=== PATIENT | male | born 1965 | race African-American/Black ===

== ENCOUNTER 2020-08-01 15:41 | Emergency (ER) | payer SELFPAY ==
[2020-08-01] VITALS (7 sets, daily range): BP systolic 140–167; BP diastolic 75–81; PULSE 86–104; RESP 14–30; TEMP 36.7; O2SAT 94–98
--- NOTE | ~2020-08-01 | CT_ITS ---
EXAMINATION: CT abdomen pelvis w con DATE: 08/01/2020 17:35 INDICATION: No bowel movements for one week. Urinary pain. TECHNIQUE: Computed tomography (CT) of the abdomen and pelvis was performed with 100 cc Omnipaque 350 intravenous contrast. The dose-length product was 1422.79 mGy-cm. Automated exposure control and ite rative reconstruction technique were employed. COMPARISON: None. FINDINGS: There are mixed patchy groundglass opacities and nodular densities of the lower lungs. Hear t size normal. No significant pleural or pericardial effusion. Small hiatal hernia. There is mucosal thickening of a long segment of proximal small bowel. No definite obstruction. Colon ic diverticulosis without diverticulitis. The liver, spleen, pancreas, adrenal glands and kidneys are unremarkable. Gallbladder is present. The re is a fat-containing umbilical hernia. Prostate gland is mildly enlarged and hypodense. Cannot excl ude prostatitis. No significant vascular abnormality. No lymphadenopathy. There is a sclerotic lesion of the left femoral head, most likely benign bone island. No acute osseous abnormality. IMPRESSION: 1. Mixed patchy groundglass and nodular densities of the lower lungs, most likely infectious/inflamma tory, although metastatic disease not excluded. 2: Segmental thickening of the proximal small bowel, suspicious for enteritis. No definite obstructio n. 3: Mildly enlarged heterogeneous hypodense prostate gland. Consider prostatitis in the appropriate c linical setting. Reviewed, dictated and finalized at location A. ICAL GARMENT INSPECTOR IMPRESSION: 1. Mixed patchy groundglass and nodular densities of the lower lungs, most like ly infectious/inflammatory, although metastatic disease not excluded. 2: Segmental thickening of the proximal small bowel, suspicious for enteritis. No definite obstruction. 3: Mildly enlarged heterogeneous hypodense prostate gland. Consider prostatiti s in the appropriate clinical setting.
[2020-08-01 16:20] LABS: Basophils Percent Auto 0.2 % (0.2-1.2); Eosinophils Percent Auto 0.3 % (0-4.4); Hematocrit 27.5 % (42.0-52.0); Hemoglobin 8.2 g/dL (14.0-18.0); Immature Granulocyte Absolute 0.25 K/mm3 (0.00-0.031); Immature Granulocyte Percent A 1.9 % (0-0.5); Lymphocytes Absolute Auto 1.64 K/mm3 (0.9-3.2); Lymphocytes Percent Auto 12.5 % (18.3-44.2); Mean Corpuscular HGB Conc 29.8 g/dl (32-36); Mean Corpuscular Hemoglobin 26.2 pg (26-34); Mean Corpuscular Volume 87.9 fl (80-100); Mean Platelet Volume 9.8 fl (7.4-10.4); Monocytes Absolute Auto 1.2 K/mm3 (0.1-0.6); Monocytes Percent Auto 9.1 % (2.6-8.5); Nucleated Red Blood Cells Absolute Auto 0.1 K/mm3 (0.0-0.012); Nucleated Red Blood Cells Perc 0.8 % (0.0-0.2); Platelet Count Result 494 k/mm3 (150-375); Red Blood Count 3.13 M/mm3 (4.6-6.20); Red Cell Distribution Width 14.6 % (11.5-14.5); White Blood Count 13.1 K/mm3 (4.5-10.0)
[2020-08-01 16:26] LABS: Hypochromasia 2+ (NORMAL); Platelet Estimate Increased (Adequate)
[2020-08-01 16:27] LABS: Stomatocytes 1+ (NORMAL)
[2020-08-01 16:36] LABS: Alanine Aminotransferase 16 U/L (4-50); Albumin Level 3.1 g/dL (3.5-5.1); Alkaline Phosphatase 160 U/L (38-126); Anion Gap 5 mmol/L (8-16); Aspartate Amino Transferase 28 U/L (17-59); Bilirubin,Total 1.2 mg/dL (0.2-1.3); Blood Urea Nitrogen 14 mg/dL (9-20); Calcium 8.1 mg/dL (8.4-10.2); Carbon Dioxide 38 mmol/L (22-30); Chloride 88 mmol/L (98-107); Estimated CRCL calculation 117 ml/min; Estimated Glomerular Filt Rate > 60; Glucose 552 mg/dL (75-110); Lipase 335 U/L (23-300); Potassium 3.2 mmol/L (3.4-5.0); Sodium 131 mmol/L (137-145)
[2020-08-01 16:37] LABS: Add Urine Microscopic? YES; Appearance Urine Clear (Clear); Bilirubin Urine Negative (Negative); Blood Urine Negative (Negative); Color Urine Amber (Yellow); Glucose Urine UA 3+ mg/dL (Negative); Ketones Urine Negative (Negative); Leukocyte Esterase Ur Negative LEU/UL (Negative); Nitrate Urine Positive (Negative); Protein Urine Negative (Negative); RBC Urine 0-2 /hpf (0-2); Specific Grav Ur 1.026 (1.001-1.035); Squamous Epithelial Cell Urine Rare /hpf (Few); WBC Urine 0-3 /hpf
[2020-08-01] MEDS: INSULIN ASPART (*BKC) 100 UNITS/ML 18 UNITS SUB-Q (17:01)
[2020-08-01 17:09] LABS: Beta-Hydroxybutyrate/Acetoacetate 0.36 mmol/L (0.02-0.27)
[2020-08-01 18:21] LABS: Glucose Point of Care 442 (65-105)
[2020-08-01] MEDS: INSULIN HUMAN REGULAR (*BKC) 100 UNITS/ML 8 UNITS IV PUSH (18:37)
--- NOTE | 2020-08-01 19:34 | ED.GENADULT ---
HPI - General Adult General Chief complaint: Urogenital-Male Stated complaint: Pain with Urination and BM's,Covid +07/14/20 Time Seen by Provider: 08/01/20 15:59 Source: patient Mode of arrival: ambulatory Limitations: no limitations History of Present Illness HPI narrative: Patient with history of diabetes type 2 and hypertension presents with chief complaint of no bowel movement for 1 week as well as pain with urination for 3 weeks. Patient states he was discharged from [facility] due to DKA last Friday but the dysuria was not evaluated or treated. Patient states that he told his primary care provider and was started on Cipro on Friday but he has not noticed resolution of his symptoms. Patient denies fever, chills, nausea, vomiting, diarrhea. Patient states that he ate prior to coming and did not take his Humalog. Patient also takes Lantus and lisinopril. Patient denies chest pain or shortness of breath. Patient was diagnosed with Covid 07-14-2020. Related Data Home Medications Medication Instructions Recorded Confirmed ciprofloxacin HCl 08/01/20 hydrochlorothiazide 08/01/20 insulin glargine [Lantus Solostar SUBCUT 08/01/20 U-100 Insulin] losartan-hydrochlorothiazide tablet 08/01/20 metoprolol succinate PO 08/01/20 Allergies Allergy/AdvReac Type Severity Reaction Status Date / Time No Known Allergies Allergy Verified 08/01/20 15:54 Review of Systems Review of Systems: Narrative: CONSTITUTIONAL: Denies fever, chills, or sweats. EYES: Denies visual changes, redness, or discharge. ENT: Denies rhinorrhea, congestion, sore throat, or otalgia. CARDIOVASCULAR: Denies chest pain, palpitations, or edema. RESPIRATORY: Denies cough or dyspnea. GASTROINTESTINAL: Reports constipation denies abdominal pain, nausea, vomiting, or diarrhea. GENITOURINARY: Reports dysuria and hematuria. SKIN: Denies rash or itching. MUSCULOSKELETAL: Denies back pain, joint pain, or myalgia. NEUROLOGIC: Denies headache, numbness, dizziness, or weakness. PSYCHIATRIC: Denies anxiety or depression. Exam Narrative: Exam Narrative: GENERAL: Well-appearing, well-nourished, and in no acute distress. HEAD: Normocephalic, atraumatic. EYES: PERRLA and EOMI. NECK: ROM intact CHEST: Clear to auscultation. No respiratory distress. No wheezes rales or rhonchi HEART: Regular rate and rhythm. No murmur heard. Normal peripheral pulses. ABDOMEN: Soft, nontender, nondistended, normal active bowel sounds. BRAZE OPERATOR: No penile trauma, bleeding, discharge or sores noted. EXTREMITIES: Normal range of motion. No edema. SKIN: Warm, dry, no rash. NEURO: No focal deficits. Alert and oriented x3. PSYCH: Normal mood and affect. Course Vital Signs Vital signs: Vital Signs Temperature 98.0 F 08/01/20 15:51 Pulse Rate 104 H 08/01/20 15:51 Respiratory Rate 20 08/01/20 15:51 Blood Pressure 166/80 H 08/01/20 15:51 Pulse Oximetry 94 08/01/20 15:51 Temperature 98.0 F 08/01/20 15:51 Pulse Rate 100 08/01/20 18:47 Respiratory Rate 16 08/01/20 18:47 Blood Pressure 150/81 H 08/01/20 19:17 Pulse Oximetry 95 08/01/20 19:17 Medical Decision Making MDM Narrative Medical decision making narrative: Discussed patient presentation, labs, imaging, with Dr Mullins. He agrees patient does not show signs of needing admission. Patient has already been started on cipro by PCP. Calling PCP to inform of labs, omaging and the need to keep patient on cipro 28 days for prostatits probability and referral to urology. Waiting on Hailee to call back. Patient blood sugar is now 303. giving PO potassium x1. Consult with Dr Stephen and patient will be discharged home after he receives liter of fluid and BS is under 250. He wants patient to be given new script of cipro for 28 days. He states he will maintain close follow up with patient to make sure he is improving and his blood sugars are staying under better control as well as urology and gi referral for
[2020-08-01 19:39] LABS: Glucose Point of Care 304 (65-105)
[2020-08-01] MEDS: POTASSIUM CHLORIDE 20 MEQ TABLET 40 MEQ PO (19:54)
[2020-08-01] MEDS: SODIUM CHLORIDE 0.9% IV 1,000 ML 999 ML IV CONT (20:58)
[2020-08-02 06:17] LABS: Glucose Point of Care 229 (65-105)
== END 2020-08-01 22:25 | disposition home or self-care (01) ==
PROVIDERS: Emergency Medicine; Physician Assistant; Emergency Provider Emergency Medicine; PCP Family Medicine
DX: E11.65 Type 2 diabetes mellitus with hyperglycemia (principal); Z86.19 Personal history of other infectious and parasitic diseases; Z79.4 Long term (current) use of insulin; N40.0 Benign prostatic hyperplasia without lower urinary tract symptoms; R91.8 Other nonspecific abnormal finding of lung field; R93.3 Abnormal findings on diagnostic imaging of other parts of digestive tract
CPT/HCPCS: 36415; 74177; 80053; 81001; 82010; 82948; 83690; 85025; 96361; 96374; 99284; A9270; J1815; J7030; Q9967

== ENCOUNTER 2020-08-08 14:27 | Inpatient (IN) | payer SELFPAY ==
[2020-08-08] VITALS (19 sets, daily range): BP systolic 115–185; BP diastolic 69–89; PULSE 88–120; RESP 14–32; TEMP 37.1–39.1; O2SAT 89–100; BMI 34.9
--- NOTE | ~2020-08-08 | XR_ITS ---
EXAMINATION: XR chest 1V portable INDICATION: Shortness of breath and weakness, COVID 19 positive TECHNIQUE: Portable AP chest at 1554 hours COMPARISON: 01/03/2009 FINDINGS: There are diffuse opacities throughout all lung zones. No definite pleural effusion or pneu mothorax is identified. Cardiomegaly is noted. IMPRESSION: 1. Diffuse lung disease, consistent with pneumonia and/or pulmonary edema and/or acute respiratory di stress syndrome (ARDS). Reviewed, dictated and finalized at location A. CE OFFICER IMPRESSION: 1. Diffuse lung disease, consistent with pneumonia and/or pulmonary edema and/o r acute respiratory distress syndrome (ARDS).
--- NOTE | ~2020-08-08 | CT_ITS ---
EXAMINATION: CTA chest PE protocol DATE: 08/08/2020 16:51 INDICATION: Low oxygen saturation TECHNIQUE: Computed tomography angiography (CTA) of the chest was performed with 100 mL Omnipaque-350 intravenous contrast timed to evaluate the pulmonary arteries. Coronal maximum intensity projection 3D-reconstructions were created by the technologist. Automated exposure control and iterative reconst ruction technique were employed. Exam dose: 3060.36 mGy-cm total exam DLP. COMPARISON: 08/08/2020 chest. FINDINGS: There is moderate enhancement of the pulmonary arteries and no evidence of pulmonary emboli sm; due to motion the peripheral pulmonary arteries are not optimally evaluated however. No thoracic aortic aneurysm or dissection. Cardiomegaly. Coronary artery calcification. No pericardial effusion. Small right pleural effusion. Normal size and homogeneous enhancement of the thyroid gland. No hilar or mediastinal mass lesion or lymphadenopathy. No evidence of adrenal mass lesion. There are scattered bilateral patchy pulmonary infiltrates consistent with bilateral pneumonia. No suspicious osteolytic or osteoblastic lesions. Degenerative spurring of the thoracic spine. IMPRESSION: Bilateral pneumonia, small right pleural effusion Reviewed, dictated and finalized at Location A. Reviewed, dictated and finalized at location A. RVISOR HARD CANDY
--- NOTE | ~2020-08-08 | CT_ITS ---
EXAMINATION: CT brain wo con DATE: 08/08/2020 15:59 INDICATION: Headache TECHNIQUE: Computed tomography (CT) of the head was performed without intravenous contrast. The mA wa s adjusted according to patient size. Iterative reconstruction technique was employed. Exam dose: 60 5.33 mGy-cm total exam DLP. COMPARISON: None FINDINGS: No intracranial mass lesion or hemorrhage, midline shift or mass effect. No intracranial ma ss lesion is detected. Normal ventricular size. No subdural or epidural hematoma. Bilateral carotid siphon internal carotid artery calcifications are noted. The included paranasal sinuses and mastoid air cells are normally developed and aerated. No fracture or bone destruction of the cranial vault. IMPRESSION: Cerebral atherosclerosis No acute intracranial finding Reviewed, dictated and finalized at Location [facility]. Reviewed, dictated and finalized at location A. OFF WORKER
--- NOTE | 2020-08-08 14:36 | ECG_ITS ---
Measurements Intervals [place] Rate: 120 P: 41 MD: 163 QRS: 17 QRSD: 90 T: 0 QT: 339 QTc: 480 Interpretive Statements SINUS TACHYCARDIA NONSPECIFIC ST & T-WAVE ABNORMALITY- DIFFUSE LEADS BASELINE ARTIFACT- I, II, III, AVR, AVL, AVF ABNORMAL ECG Electronically Signed On 08-08-2020 15:52:26 INDUSTRIAL SALES ENGINEER by Fawad Gill D.O.
--- NOTE | 2020-08-08 15:00 | ED.GENADULT ---
HPI - General Adult General Chief complaint: Headache Stated complaint: PAINS IN MY HEAD AND BACK Time Seen by Provider: 08/08/20 14:42 Source: patient and EMS Mode of arrival: EMS Limitations: no limitations History of Present Illness HPI narrative: 55 years old -[place] male referred to our emergency room from his family physician office because of headache and hypoxia. Patient complaining of intermittent headache all over the head, aching, for the last 48 hours. Patient did not take any pain medication for the headache for the last 2 days. Because he does not know what he is supposed to take. Patient denies any fever, chills, nausea, vomiting, vision change, ear ache, sore throat, trouble breathing, coughing, sneezing. Patient reported having similar headaches years ago. Patient reports having Covid infection, tested positive for Covid July 16. Been at home since, did not go back to work. Patient reports been using intermittent oxygen at home since of the diagnosis of Covid. Related Data Home Medications Medication Instructions Recorded Confirmed ciprofloxacin HCl 08/01/20 hydrochlorothiazide 08/01/20 insulin glargine [Lantus Solostar SUBCUT 08/01/20 U-100 Insulin] losartan-hydrochlorothiazide tablet 08/01/20 metoprolol succinate PO 08/01/20 Allergies Allergy/AdvReac Type Severity Reaction Status Date / Time No Known Allergies Allergy Verified 08/01/20 15:54 Review of Systems Review of Systems: Narrative: CONSTITUTIONAL: Denies fever, chills, or sweats. EYES: Denies visual changes, redness, or discharge. ENT: Denies rhinorrhea, congestion, sore throat, or otalgia. CARDIOVASCULAR: Denies chest pain, palpitations, or edema. RESPIRATORY: Denies cough or dyspnea. GASTROINTESTINAL: Denies abdominal pain, nausea, vomiting, or diarrhea. GENITOURINARY: Denies dysuria or hematuria. SKIN: Denies rash or itching. MUSCULOSKELETAL: Denies back pain, joint pain, or myalgia. NEUROLOGIC: Denies headache, numbness, or weakness. PSYCHIATRIC: Denies anxiety or depression. [facility] Past Medical History Medical History (Updated 08/08/20 @ 17:13 by Devika Grant MD) COVID-19 virus infection Diabetes mellitus, new onset Social History Social History Gender identity (if verbalized by the patient): Male Exam Narrative: Exam Narrative: General appearance: Well-developed, well-nourished, looks in pain Skin: Normal color Head: Normocephalic, nontraumatic Eyes: Clear conjunctiva ENT: Oropharynx normal, ears normal, nose normal Neck: Supple, nontender Chest and respiratory: Airway patent, no respiratory distress, no accessory muscle use Heart: Regular rate/rhythm Abdomen: Soft, nontender, no organomegaly, quiet bowel sounds Vascular: Normal peripheral pulses, normal capillary refill. Musculoskeletal: Normal range of motion, nontender back Neurologic: Alert and oriented ?3, [employer] [employer] is normal as tested, no gross motor deficit Course Consultations Consultation #1: Dr. Red High flow oxygen Start dexamethasone Date: 08/08/20 Time: 17:10 Vital Signs Vital signs: Vital Signs Temperature 37.2 C 08/08/20 14:30 Pulse Rate 120 H 08/08/20 14:30 Respiratory Rate 21 H 08/08/20 14:30 Blood Pressure 151/69 H 08/08/20 14:30 Pulse Oximetry 89 L 08/08/20 14:30 Temperature 37.2 C 08/08/20 14:30 Pulse Rate 120 H 08/08/20 14:30 Respiratory Rate 21 H 08/08/20 14:30 Blood Pressure 151/69 H 08/08/20 14:30 Pulse Oximetry 89 L 08/08/20 14:30 Medical Decision Making Vital Signs Vital Signs: Vital Signs Temperature 37.2 C 08/08/20 14:30 Pulse Rate 120
[2020-08-08] MEDS: MORPHINE SULFATE (*CRX) 4 MG/ML INJ IV PUSH (15:10)
[2020-08-08] MEDS: ONDANSETRON INJ 4 MG/2 ML VIAL IV PUSH (15:10)
[2020-08-08] MEDS: SODIUM CHLORIDE 0.9% IV 1,000 ML 999 ML IV CONT (15:10)
[2020-08-08 15:17] LABS: Base Excess ABG 1.5 mEq/l (+/-2.0); Fractional Inspired Oxygen 21 %; HCO3 ABG 25.1 mEq/l (22.0-26.0); Oxygen Content ABG 8.9 %vol (16.0-22.0); Oxyhemoglobin 78.2 % THb (90.0-100.0); PO2 FiO2 Ratio Arterial Blood 2.09 %; Total Hemoglobin 8.1 g/dL (12.0-18.0); pH ABG 7.473 (7.350-7.450)
[2020-08-08 15:19] LABS: Device ROOM AIR; Oxygen Saturation ABG 83.2 % (95.0-100.0); PO2 ABG 43.8 mmHg (80.0-100.0); Site Drawn LEFT BRACHIAL
[2020-08-08 15:25] LABS: Basophils Percent Auto 0.2 % (0.2-1.2); Eosinophils Percent Auto 0.2 % (0-4.4); Hematocrit 26.3 % (42.0-52.0); Hemoglobin 7.6 g/dL (14.0-18.0); Immature Granulocyte Absolute 0.09 K/mm3 (0.00-0.031); Immature Granulocyte Percent A 0.7 % (0-0.5); Lymphocytes Absolute Auto 0.57 K/mm3 (0.9-3.2); Lymphocytes Percent Auto 4.6 % (18.3-44.2); Mean Corpuscular HGB Conc 28.9 g/dl (32-36); Mean Corpuscular Hemoglobin 26.8 pg (26-34); Mean Corpuscular Volume 92.6 fl (80-100); Mean Platelet Volume 9.4 fl (7.4-10.4); Monocytes Absolute Auto 0.7 K/mm3 (0.1-0.6); Monocytes Percent Auto 5.2 % (2.6-8.5); Neutrophils Absolute Auto 11.1 K/mm3 (1.3-6.7); Neutrophils Percent Auto 89.1 % (45.5-73.1); Nucleated Red Blood Cells Absolute Auto 0.1 K/mm3 (0.0-0.012); Nucleated Red Blood Cells Perc 0.4 % (0.0-0.2); Platelet Count Result 354 k/mm3 (150-375); Red Blood Count 2.84 M/mm3 (4.6-6.20); Red Cell Distribution Width 18.7 % (11.5-14.5); White Blood Count 12.4 K/mm3 (4.5-10.0)
[2020-08-08 15:34] LABS: INR 1.1; Prothrombin Time 14.3 Seconds (11.1-14.7)
[2020-08-08 15:35] LABS: Partial Thromboplastin Time 38.2 SECONDS (22.3-36.8)
[2020-08-08 15:36] LABS: Magnesium 1.7 mg/dL (1.6-2.3)
[2020-08-08 15:37] LABS: Alanine Aminotransferase 46 U/L (4-50); Albumin Level 3.4 g/dL (3.5-5.1); Alkaline Phosphatase 295 U/L (38-126); Anion Gap 11 mmol/L (8-16); Aspartate Amino Transferase 47 U/L (17-59); Bilirubin,Total 0.9 mg/dL (0.2-1.3); Blood Urea Nitrogen 10 mg/dL (9-20); Calcium 8.5 mg/dL (8.4-10.2); Carbon Dioxide 29 mmol/L (22-30); Chloride 96 mmol/L (98-107); Estimated CRCL calculation 95 ml/min; Estimated Glomerular Filt Rate > 60; Glucose 393 mg/dL (75-110); Potassium 3.4 mmol/L (3.4-5.0); Sodium 136 mmol/L (137-145)
[2020-08-08 15:38] LABS: D Dimer 2.33 ug/mL (<0.48)
[2020-08-08 15:39] LABS: Hypochromasia 1+ (NORMAL); Platelet Estimate Adequate (Adequate)
[2020-08-08 15:40] LABS: Stomatocytes 1+ (NORMAL); Target Cells 1+ (NORMAL)
[2020-08-08 15:49] LABS: NT Pro B Type Natriuretic Pept 973 PG/ML (5-100); Troponin I 0.023 ng/mL (0.000-0.034)
[2020-08-08 15:58] LABS: CRP 21.8 mg/dL (<1.0); Erythrocyte Sedimentation Rate > 140 mm/hr (0-20)
--- NOTE | 2020-08-08 16:25 | PC.NURSE ---
patient has order for IV antibiotics. at bedside. patient taken to CT for PE study. will start all meds when patient returns.
[2020-08-08] MEDS: SODIUM CHLORIDE 0.9% IV 1,000 ML 30 ML (16:44)
--- NOTE | 2020-08-08 16:45 | PC.NURSE ---
patient back from CT. started on high flow NC O2. on alarm security or surveillance monitor. resting on stretcher. IV antibiotic started. has 2nd IV antibiotic after rocephin. patient aware of all. aware of plan for admission. states he feels comfortable. denies needs. may want some ice water in a bit.
[2020-08-08] MEDS: DEXAMETHASONE SOD PHOS INJ 4 MG/ML VIAL 6 MG IV PUSH (17:38)
--- NOTE | 2020-08-08 17:45 | PC.NURSE ---
report given to RN in ICU. patient will be transferred to ICU 10 by Aleshia RN and surface water technician. patient placed on mobile quality assurance monitor chassis and 4L NC. respiratory notified to take high flow O2 to ICU. patient denies needs prior to transfer.
[2020-08-08 18:20] LABS: Glucose Point of Care 385 (65-105)
--- NOTE | 2020-08-08 18:35 | PC.NURSE ---
175- This patient, Jaden Fortune, was admitted to Intensive Care Unit-10. Patient/family oriented to hospital policies and general routines including ID bracelet, bed and alarms, visiting hours, pain management, procedures, bathroom and other care routines, personal items, smoking policy, room service/diet, and visiting hours. Information on how to activate the Rapid Response Team has been discussed. Patient/Family are encouraged to report perceived risks to care and to ask questions if they do not understand what they are told or what they should do.
[2020-08-08 18:44] LABS: Alveolar/Arterial O2 Gradient 173.8 mmHg; Base Excess ABG 3.1 mEq/l (+/-2.0); Carboxyhemoglobin 0.2 % THb (0-2.0); Fractional Inspired Oxygen 40 %; HCO3 ABG 27.1 mEq/l (22.0-26.0); Methemoglobin ABG 0.4 %THb (0-1.5); Oxygen Content ABG 9.6 %vol (16.0-22.0); Oxygen Saturation ABG 94.2 % (95.0-100.0); Oxyhemoglobin 91.2 % THb (90.0-100.0); PO2 ABG 66.6 mmHg (80.0-100.0); PO2 FiO2 Ratio Arterial Blood 1.66 %; Reduced Hemoglobin 8.2 %THb (0-5.0)
[2020-08-08 18:45] LABS: Modified Allen's Test Pass; Site Drawn RIGHT RADIAL; Total Hemoglobin 7.4 g/dL (12.0-18.0)
[2020-08-08 18:46] LABS: Device HIGH FLOW THERAPY
--- NOTE | 2020-08-08 20:35 | PM.IMHP ---
H&P: HPI History of Present Illness Date/Time: 08/08/20 20:35 Chief Complaint: Dyspnea, generalized weakness Narrative: Jaden Fortune is a 55 year old male with past medical history of insulin-dependent type 2 diabetes, hypertension, history of anxiety/depression, obesity presents to the ED with complaints of dyspnea. Patient was diagnosed with COVID-19 on 07/16/2020 and has been managing at home. At 1st he was asymptomatic but a week later he started developing body aches and weakness and now dyspnea. He states he is so tired he slept for almost entire day. He went to his PCP today who advised him to come to the ED for further evaluation. Patient has type 2 diabetes taking 50 units of Lantus q.h.s. and metformin. His on multiple agents for blood pressure. He has a history of anxiety/depression and was on escitalopram in the past but he no longer takes. He otherwise is active works for [employer]. He lives with his and his 4 children, 2 sons and 2 daughters. 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 Patient states his family has been asymptomatic and is not sure where he got COVID-19. In the ED: On room air PO2 60s new started on high-flow oxygen and dexamethasone. He has put on airvo and admitted to the ICU for further management. EKG shows sinus tachycardia at rate 120. Review of Systems Review of Systems: Narrative: Constitutional: No Fever, No Chills, No Night Sweats, endorses fatigue and body aches. ENT/Mouth: No Hearing Changes, No Ear Pain, No Nasal Congestion, No Sinus Pain, No Hoarseness, No sore throat, No Rhinorrhea, No Swallowing Difficulty Eyes: No Eye Pain, No Redness, No Vision Changes Cardiovascular: No Chest Pain, No Palpitations, No Orthopnea, No Claudication, No Edema Respiratory: No Cough, No Sputum, No Wheezing, endorses dyspnea. Gastrointestinal: No Nausea, No Vomiting, No Diarrhea, No Constipation, No Abdominal Pain, No Heartburn, No Hematochezia, No Melena Genitourinary: No Dysuria, No Urinary Frequency, No Hematuria, No Urinary Incontinence, No Urgency Musculoskeletal: No Arthralgias, No Myalgias, No Joint Swelling, No Joint Stiffness, No Back Pain Skin: No Skin Lesions, No Pruritis, No Hair Changes Neuro: No Weakness, No Numbness, No Paresthesias, No Loss of Consciousness, No Syncope, No Dizziness, No Headache Psych: No Anxiety/Panic, No Depression, No Insomnia Heme: No Bruising, No Bleeding Lymph: No Adenopathy Endocrine: No Polyuria, No Polydipsia, No Temperature Intolerance [facility] Past Medical History Medical History (Updated 08/08/20 @ 22:32 by Jeff Glasgow DO) COVID-19 virus infection Diabetes mellitus, new onset Essential hypertension History of depression Family History Family History (Updated 08/08/20 @ 22:10 by Jeff Glasgow DO) Mother Heart disease Social History Social History (Updated 08/08/20 @ 22:11 by Jeff Glasgow DO) Social History: Active, independent. Smoking status: Never smoker Second hand tobacco smoke exposure: No Alcohol intake: never Substance use: never Living arrangements: with family Additional living arrangements comments: , 2 sons and 2 daughters Occupation/Education: occupation Additional occupation/education comments: Works for [employer] Gender identity (if verbalized by the patient): Male Sexual Orientation (if Verbalized by the Patient): Straight or Heterosexual Spiritual care concerns: No Meds Home Medications and Allergies Home Medications Medication Instructions Recorded Confirmed Type insulin glargine [Lantus Solostar SUBCUT 08/01/20 History U-100 Insulin] losartan-hydrochlorothiazide 1 tablet PO DAILY 08/01/20 08/08/20 History metoprolol succinate 200 mg PO DAILY 08/01/20 08/08/20 History amlodipine 5 mg PO DAILY 08/08/20 08/08/20 History benzonatate 100 mg PO DAILY 08/08/20 08/08/20 History escitalopram oxalate 10 mg PO DAILY 08/08/20 08/08/20 History metformin 1,000 mg PO DAILY 08/08/20
[2020-08-08 21:49] LABS: Add Urine Microscopic? YES; Appearance Urine Clear (Clear); Bacteria Urine Trace /hpf; Bilirubin Urine Negative (Negative); Blood Urine 1+ (Negative); Color Urine Yellow (Yellow); Glucose Urine UA 3+ mg/dL (Negative); Ketones Urine Trace mg/dL (Negative); Leukocyte Esterase Ur Negative LEU/UL (Negative); Nitrate Urine Negative (Negative); Protein Urine 2+ mg/dL (Negative); RBC Urine 0-2 /hpf (0-2); Squamous Epithelial Cell Urine Rare /hpf (Few); Urobilinogen Urine Negative mg/dL (<2.0); WBC Urine 0-3 /hpf
[2020-08-08 21:52] LABS: Specific Grav Ur 1.051 (1.001-1.035)
[2020-08-08] MEDS: INSULIN GLARGINE (*BKC) 100 UNITS/ML 50 UNITS SUB-Q (23:53)
[2020-08-09] VITALS (13 sets, daily range): BP systolic 114–149; BP diastolic 55–92; PULSE 76–91; RESP 16–18; TEMP 35.9–37.2; O2SAT 93–100
[2020-08-09] MEDS: INSULIN ASPART (*BKC) 100 UNITS/ML 10 UNITS SUB-Q (00:22)
[2020-08-09 01:00] LABS: Iron 41 ug/dL (49-181)
[2020-08-09] MEDS: ENOXAPARIN 40 MG/0.4 ML SYRINGE SUB-Q ×3 (01:06→20:22)
[2020-08-09 01:10] LABS: Glucose Point of Care 471 (65-105)
[2020-08-09 01:12] LABS: Hemoglobin A1C 7.1 % (<5.7)
[2020-08-09 01:23] LABS: Percent Iron Saturation 17 % (20-50)
[2020-08-09 03:52] LABS: Glucose Point of Care 498 (65-105)
[2020-08-09 05:18] LABS: Basophils Percent Auto 0.1 % (0.2-1.2); Hematocrit 24.8 % (42.0-52.0); Hemoglobin 7.2 g/dL (14.0-18.0); Immature Granulocyte Absolute 0.13 K/mm3 (0.00-0.031); Immature Granulocyte Percent A 0.8 % (0-0.5); Immature Reticulocyte Fraction 25.2 % (3.0-15.9); Lymphocytes Absolute Auto 0.73 K/mm3 (0.9-3.2); Lymphocytes Percent Auto 4.7 % (18.3-44.2); Mean Corpuscular Hemoglobin 27.4 pg (26-34); Mean Corpuscular Volume 94.3 fl (80-100); Mean Platelet Volume 9.9 fl (7.4-10.4); Monocytes Absolute Auto 0.7 K/mm3 (0.1-0.6); Monocytes Percent Auto 4.7 % (2.6-8.5); Neutrophils Absolute Auto 14.1 K/mm3 (1.3-6.7); Neutrophils Percent Auto 89.7 % (45.5-73.1); Nucleated Red Blood Cells Perc 0.1 % (0.0-0.2); Platelet Count Result 360 k/mm3 (150-375); Red Blood Count 2.63 M/mm3 (4.6-6.20); Red Cell Distribution Width 18.7 % (11.5-14.5); Reticulocyte Hemoglobin Conten 24.9 pg (28.2-35.7); Reticulocyte Percent 8.24 % (0.7-4.3); Reticulocytes Absolute 0.22 B/L (32.2-175.7); White Blood Count 15.7 K/mm3 (4.5-10.0)
[2020-08-09 05:29] LABS: Transferrin 155 mg/dL (206-381)
[2020-08-09 05:43] LABS: Anion Gap 4 mmol/L (8-16); Blood Urea Nitrogen 15 mg/dL (9-20); Calcium 8.3 mg/dL (8.4-10.2); Carbon Dioxide 34 mmol/L (22-30); Chloride 97 mmol/L (98-107); Estimated CRCL calculation 105 ml/min; Estimated Glomerular Filt Rate > 60; Glucose 401 mg/dL (75-110); Lactate Dehydrogenase 614 U/L (313-618); Potassium 4.3 mmol/L (3.4-5.0); Sodium 135 mmol/L (137-145)
[2020-08-09 05:57] LABS: Anisocytosis 1+ (NORMAL); Hypochromasia 1+ (NORMAL); Ovalocytes 1+ (NORMAL); Platelet Estimate Adequate (Adequate); Poikilocytosis 1+ (NORMAL)
[2020-08-09 05:58] LABS: Stomatocytes 1+ (NORMAL)
[2020-08-09] MEDS: INSULIN ASPART (*BKC) 100 UNITS/ML SUB-Q (08:08)
[2020-08-09] MEDS: DEXAMETHASONE SOD PHOS INJ 4 MG/ML VIAL 6 MG IV PUSH (08:09)
[2020-08-09] MEDS: hydroCHLOROthiazide 25 MG TABLET PO (08:10)
[2020-08-09] MEDS: ASCORBIC ACID 500 MG TABLET PO (08:10)
[2020-08-09] MEDS: amLODIPine BESYLATE 5 MG TABLET PO (08:10)
[2020-08-09] MEDS: CHOLECALCIFEROL 1,000 UNITS TABLET 5000 UNITS PO (08:10)
[2020-08-09] MEDS: FAMOTIDINE 20 MG TABLET PO ×2 (08:10→20:22)
[2020-08-09] MEDS: ZINC SULFATE 220 MG CAPSULE PO (08:10)
[2020-08-09] MEDS: LOSARTAN POTASSIUM 100 MG TABLET PO (08:11)
[2020-08-09] MEDS: METOPROLOL SUCCINATE EXT REL 100 MG TABCR 200 MG PO (08:11)
[2020-08-09] MEDS: ACETAMINOPHEN 325 MG TABLET 650 MG PO (08:24)
[2020-08-09] MEDS: ALBUTEROL SULFATE (*SP) AEROSOL 1 PUFF 2 PUFF INHALATION ×4 (09:28→21:00)
[2020-08-09] MEDS: INSULIN GLARGINE (*BKC) 100 UNITS/ML 30 UNITS SUB-Q (10:16)
[2020-08-09 10:21] LABS: Glucose Point of Care 381 (65-105)
[2020-08-09] MEDS: INSULIN ASPART (*BKC) 100 UNITS/ML 12 UNITS SUB-Q ×2 (12:57→17:12)
[2020-08-09 13:23] LABS: Glucose Point of Care 461 (65-105)
--- NOTE | 2020-08-09 15:49 | PM.IMPN ---
Progress Note: A&P Assessment and Plan (1) Pneumonia due to COVID-19 virus: Code(s): U07.1 - COVID-19; J12.89 - Other viral pneumonia Status: Acute Assessment and Plan: -COVID-19 diagnosed 07/16/2020 -he is out of the appropriate window for remdesivir or convalescent plasma, holding off -starting dexamethasone 6 mg daily for 10 days -patient was put on Airvo for hypoxia, however in the ICU he was able to be weaned down quickly and was not in any respiratory distress. He may be able to be downgraded soon. -titrating oxygen to keep oxygen saturation greater than 90%, currently on Airvo 35% -patient was given antibiotics in the ED, patient appears to have COVID-19 as opposed to a separate infection, no sputum production or leukocytosis, holding off on antibiotics at this time -checking inflammatory markers -Pepcid for GI prophylaxis -Lovenox b.i.d. for anticoagulation -patient agreed to supplements: Starting zinc, vitamin-C, vitamin-D -Tylenol for fever -MDI: Albuterol -guaifenesin for cough -incentive spirometer while awake 08/09/20 15:49 Patient is a 55-year-old male with history of type 2 diabetes insulin dependent, he was positive COVID-19 on 07/16 and patient had been managing his symptoms at home however last couple of days his symptoms got worse when he was so tired and fatigue he did difficulty getting out of the bed remain slept most of the day and presented emergency department for further evaluation, upon arrival patient temperature is 102, and requiring 2 L of oxygen, patient is retested for COVID-19, currently patient is feeling better, denies any chest pain shortness of breath palpitation fever or chills. (2) Acute respiratory failure with hypoxia: Code(s): J96.01 - Acute respiratory failure with hypoxia Status: Acute Assessment and Plan: -patient was temporarily on Airvo, will wean down as tolerated (3) Anemia: Qualifiers: Anemia type: unspecified type Qualified Code(s): D64.9 - Anemia, unspecified Code(s): D64.9 - Anemia, unspecified Status: Acute Assessment and Plan: -normocytic, may be chronic, last week it was 8.2 but appears it never was worked up -no sign GI bleed, no melena or hemoptysis, hematemesis, or any bleeding -will do anemia workup iron panel reticulocyte count -may be related to his diabetes however kidneys appear to be within normal limits (4) Diabetes mellitus, new onset: Code(s): E11.9 - Type 2 diabetes mellitus without complications Status: Inactive Assessment and Plan: Continue home regimen and monitor Additional Plan # other chronic conditions -type 2 diabetes insulin dependent: Continue home Lantus 50 units q.h.s., holding metformin for possible imaging. Checking hemoglobin A1c, moderate dose insulin sliding scale, hypoglycemic protocol, Accu-Cheks a.c. HS -essential hypertension: Continue metoprolol, losartan, hydrochlorothiazide, amlodipine -history of anxiety/depression: Patient used to take Lexapro temporarily but no longer Diet: Diabetic consistent carb diet DVT prophylaxis: Lovenox b.i.d. 40 mg Code status: Full code Disposition: ICU, may downgrade if oxygen requirements come down Subjective Date/time seen: 08/09/20 15:49 Patient is a 55-year-old male with history of type 2 diabetes insulin dependent, he was positive COVID-19 on 07/16 and patient had been managing his symptoms at home however last couple of days his symptoms got worse when he was so tired and fatigue he did difficulty getting out of the bed remain slept most of the day and presented emergency department for further evaluation, upon arrival patient temperature is 102, and requiring 2 L of oxygen, patient is retested for COVID-19, currently patient is feeling better, denies any chest pain shortness of breath palpitation fever or chills. Review of Systems Review of Systems: All systems reviewed & are unre
[2020-08-09 18:01] LABS: SARS-CoV-2 RNA PCR Negative
[2020-08-09 18:07] LABS: Glucose Point of Care 438 (65-105)
--- NOTE | 2020-08-09 18:56 | PC.NURSE ---
Report called to JERMAINE Alvarez on med/surg.
[2020-08-09] MEDS: INSULIN GLARGINE (*BKC) 100 UNITS/ML 50 UNITS SUB-Q (20:21)
--- NOTE | 2020-08-09 20:39 | PC.NURSE ---
This patient, Jaden Fortune, was transferred to [ 312] on 08/09/20 at 2039. Personal belongings sent with patient. Report given to [ ]. Appropriate documentation sent with patient.
--- NOTE | 2020-08-09 20:40 | PC.NURSE ---
This patient, Jaden Fortune, was received from [ICU ] on 08/09/20 at 2030. Patient/family oriented to unit policies and routines
[2020-08-10 05:48] VITALS: BP 126/76; PULSE 87; RESP 18; TEMP 36.4; O2SAT 98
[2020-08-10 08:16] LABS: Glucose Point of Care 269 (65-105)
[2020-08-10] MEDS: INSULIN ASPART (*BKC) 100 UNITS/ML SUB-Q (08:31)
[2020-08-10] MEDS: ALBUTEROL SULFATE (*SP) AEROSOL 1 PUFF 2 PUFF INHALATION (08:33)
[2020-08-10 08:34] VITALS: PULSE 84
[2020-08-10] MEDS: METOPROLOL SUCCINATE EXT REL 100 MG TABCR 200 MG PO (08:34)
[2020-08-10] MEDS: hydroCHLOROthiazide 25 MG TABLET PO (08:37)
[2020-08-10] MEDS: LOSARTAN POTASSIUM 100 MG TABLET PO (08:37)
[2020-08-10] MEDS: ENOXAPARIN 40 MG/0.4 ML SYRINGE SUB-Q (08:37)
[2020-08-10] MEDS: CHOLECALCIFEROL 1,000 UNITS TABLET 5000 UNITS PO (08:38)
[2020-08-10] MEDS: ZINC SULFATE 220 MG CAPSULE PO (08:38)
[2020-08-10] MEDS: amLODIPine BESYLATE 5 MG TABLET PO (08:38)
[2020-08-10] MEDS: ASCORBIC ACID 500 MG TABLET PO (08:38)
[2020-08-10] MEDS: FAMOTIDINE 20 MG TABLET PO (08:39)
[2020-08-10] MEDS: INSULIN GLARGINE (*BKC) 100 UNITS/ML 30 UNITS SUB-Q (08:40)
[2020-08-10 09:47] VITALS: O2SAT 96
--- NOTE | 2020-08-10 10:41 | PM.DS ---
DS: Admitting Diagnosis Admitting Diagnosis Admitting Diagnosis: Dyspnea, generalized weakness DS: Discharge Diagnosis Discharge Diagnosis (1) Pneumonia due to COVID-19 virus: Code(s): U07.1 - COVID-19; J12.89 - Other viral pneumonia Status: Acute Assessment and Plan: -COVID-19 diagnosed 07/16/2020 -he is out of the appropriate window for remdesivir or convalescent plasma, holding off -starting dexamethasone 6 mg daily for 10 days -patient was put on Airvo for hypoxia, however in the ICU he was able to be weaned down quickly and was not in any respiratory distress. He may be able to be downgraded soon. -titrating oxygen to keep oxygen saturation greater than 90%, currently on Airvo 35% -patient was given antibiotics in the ED, patient appears to have COVID-19 as opposed to a separate infection, no sputum production or leukocytosis, holding off on antibiotics at this time -checking inflammatory markers -Pepcid for GI prophylaxis -Lovenox b.i.d. for anticoagulation -patient agreed to supplements: Starting zinc, vitamin-C, vitamin-D -Tylenol for fever -MDI: Albuterol -guaifenesin for cough -incentive spirometer while awake 08/09/20 15:49 Patient is a 55-year-old male with history of type 2 diabetes insulin dependent, he was positive COVID-19 on 07/16 and patient had been managing his symptoms at home however last couple of days his symptoms got worse when he was so tired and fatigue he did difficulty getting out of the bed remain slept most of the day and presented emergency department for further evaluation, upon arrival patient temperature is 102, and requiring 2 L of oxygen, patient is retested for COVID-19, currently patient is feeling better, denies any chest pain shortness of breath palpitation fever or chills. (2) Acute respiratory failure with hypoxia: Code(s): J96.01 - Acute respiratory failure with hypoxia Status: Acute Assessment and Plan: -patient was temporarily on Airvo, will wean down as tolerated (3) Anemia: Qualifiers: Anemia type: unspecified type Qualified Code(s): D64.9 - Anemia, unspecified Code(s): D64.9 - Anemia, unspecified Status: Acute Assessment and Plan: -normocytic, may be chronic, last week it was 8.2 but appears it never was worked up -no sign GI bleed, no melena or hemoptysis, hematemesis, or any bleeding -will do anemia workup iron panel reticulocyte count -may be related to his diabetes however kidneys appear to be within normal limits (4) Diabetes mellitus, new onset: Code(s): E11.9 - Type 2 diabetes mellitus without complications Status: Inactive Assessment and Plan: Continue home regimen and monitor DS: Summary Hospital Course Reason for hospitalization: Chief Complaint: Dyspnea, generalized weakness Narrative: Jaden Fortune is a 55 year old male with past medical history of insulin-dependent type 2 diabetes, hypertension, history of anxiety/depression, obesity presents to the ED with complaints of dyspnea. Patient was diagnosed with COVID-19 on 07/16/2020 and has been managing at home. At 1st he was asymptomatic but a week later he started developing body aches and weakness and now dyspnea. He states he is so tired he slept for almost entire day. He went to his PCP today who advised him to come to the ED for further evaluation. Patient has type 2 diabetes taking 50 units of Lantus q.h.s. and metformin. His on multiple agents for blood pressure. He has a history of anxiety/depression and was on escitalopram in the past but he no longer takes. He otherwise is active works for [employer]. He lives with his and his 4 children, 2 sons and 2 daughters. 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 Patient states his family has been asymptomatic and is not sure where he got COVID-19. In the ED: On room air PO2 60s new started on high-flow oxygen and dexamethasone. He has put on airvo and admitted to the ICU for further ma
[2020-08-10 11:57] LABS: Glucose Point of Care 225 (65-105)
== END 2020-08-10 11:50 | disposition home or self-care (01) | DRG 133 ==
LOC: ANHED 17:13 → ANHICU 17:17 → ANH3MEDSUR 08-09 19:10
PROVIDERS: Physician Assistant; Student in an Organized Health Care Education/Training Program; Admitting Provider Family Medicine; Emergency Provider Emergency Medicine; PCP Family Medicine; Visit Provider Family Medicine
DX: J96.01 Acute respiratory failure with hypoxia (principal); J12.89 Other viral pneumonia; Z20.828 Contact with and (suspected) exposure to other viral communicable diseases; R51.9 Headache, unspecified; E11.9 Type 2 diabetes mellitus without complications; D64.9 Anemia, unspecified; I10 Essential (primary) hypertension; Z79.4 Long term (current) use of insulin; Z79.899 Other long term (current) drug therapy
CPT/HCPCS: 36415; 36600; 70450; 71045; 71275; 80048; 80053; 81001; 82375; 82728; 82805; 83036; 83050; 83540; 83550; 83615; 83735; 83880; 84466; 84484; 85025; 85046; 85380; 85610; 85652; 85730; 86140; 87040; 87635; 87804; 93005; 94640; 96361; 96374; 96375; 99291; A9270; C9803; J0131; J0456; J0696; J1100; J1650; J1815; J2270; J2405; J7030; Q9967; U0003

== ENCOUNTER 2020-11-24 13:16 | Outpatient (CLI) | payer BC, SELFPAY ==
--- NOTE | ~2020-11-24 | US_ITS ---
US renal BI DATE: 11/24/2020 14:28 INDICATION: Chronic kidney disease stage 1. Benign essential hypertension. TECHNIQUE: Real-time imaging of kidneys and urinary bladder COMPARISON: 08/01/2020 CT abdomen pelvis . FINDINGS: The right kidney measures approximately 11.9 cm length. The left kidney measures approximat earl 11.5 cm length. No renal mass lesion or hydronephrosis. The urinary bladder is unremarkable. IMPRESSION: No significant abnormality Reviewed, dictated and finalized at [facility] Reviewed, dictated and finalized at [facility]. IMPRESSION: No significant abnormality
== END 2020-11-24 13:17 | disposition home or self-care (01) ==
PROVIDERS: PCP Family Medicine; Visit Provider Internal Medicine Nephrology
DX: N18.1 Chronic kidney disease, stage 1 (principal); I12.9 Hypertensive chronic kidney disease with stage 1 through stage 4 chronic kidney disease, or unspecified chronic kidney disease; E11.9 Type 2 diabetes mellitus without complications; R80.9 Proteinuria, unspecified
CPT/HCPCS: 76775

== ENCOUNTER 2021-01-24 09:41 | Outpatient (CLI) | payer BC, SELFPAY ==
--- NOTE | 2021-01-24 | ECHO_ITS ---
Patient Info Name: Jaden Fortune Age: 55 years : 1965 Gender: Male Ht: 72 in Wt: 250 lbs BSA: 2.44 m2 HR: 98 bpm BP: 171 / 110 mmHg Heart Rhythm: Sinus Rhythm Technical Quality: Fair Exam Date: 01/24/2021 10:16 AM Exam Location: [facility] Patient Status: Outpatient Admit Date: 01/24/2021 Staff Ordering Physician: NolbertoSigrid NP [employer] Licensee: Shelly Mills RDCS Attending Provider: CassieSigrid NP Exam Type: CA echo doppler color flow Study Info Indications - ESST HTN Complete two-dimentional, color flow and Doppler transthoracic echocardiogram is performed with agitated saline and with contrast to opacify the left ventricle and to improve the delineation of the left ventricle endocardial borders. Summary 1. Left ventricular chamber size and systolic function are normal with no regional wall motion abnormalities with an estimated ejection fraction of 60-65%. There is mild concentric left ventricular hypertrophy present and diastolic dysfunction is noted. 2. Left atrial chamber dimension is mildly enlarged. 3. No significant valve disease. 4. Normal sinus rhythm. Left Ventricle Left ventricular chamber dimension is normal. Left ventricular systolic function is normal, estimated at 60-65%. There is mildly increased left ventricular wall thickness. Left ventricular septal wall motion is normal. The left ventricular diastolic function is abnormal. Left ventricular chamber size and systolic function are normal with no regional wall motion abnormalities with an estimated ejection fraction of 60-65%. There is mild concentric left ventricular hypertrophy present and diastolic dysfunction is noted. Right Ventricle Right ventricular chamber dimension is normal. Right ventricular systolic function is normal. Left Atria Left atrial chamber dimension is mildly enlarged. Right Atria Right atrial chamber dimension is normal. Aortic Valve The aortic valve is trileaflet. There is no aortic valve sclerosis. There is no aortic valve stenosis. There is no aortic valve regurgitation. Pulmonic Valve The pulmonic valve is normal. There is no pulmonic valve stenosis. There is no pulmonic regurgitation. Mitral Valve The mitral valve has normal leaflets. There is no mitral valve stenosis. There is trace mitral valve regurgitation. Tricuspid Valve The tricuspid valve leaflets are normal. There is no significant tricuspid valve stenosis. There is trace tricuspid valve regurgitation. No pulmonary hypertension, estimated pulmonary arterial systolic pressure is Empty. Pericardium/Pleural The pericardium appears normal. There is no pericardial effusion. Inferior Vena Cava Normal inferior vena cava with >50% collapse upon inspiration consistent with Empty right atrial pressure, Empty. Aorta The aortic root size at the sinus of Valsalva is normal. The prox ascending aorta size is normal. Left Ventricular Outflow Tract Name Value Normal LVOT 2D LVOT Diameter 2.1 cm LVOT Doppler LVOT Peak Gradient 3 mmHg LVOT Mean Gradient
== END 2021-01-24 09:42 | disposition home or self-care (01) ==
PROVIDERS: PCP Nurse Practitioner Adult Health; Visit Provider Nurse Practitioner Adult Health
DX: I10 Essential (primary) hypertension (principal)
CPT/HCPCS: 93306

== ENCOUNTER 2022-12-19 10:21 | Outpatient (CLI) | payer OTHER, SELFPAY ==
--- NOTE | ~2022-12-19 | CT_ITS ---
CT of the Abdomen and Pelvis: Indication: Abdominal pain Technique: 2.5 mm axial scans were obtained through the abdomen and pelvis following intravenous adm inistration of 100 cc of Omnipaque 350. Dose reduction technique was used on this scan by utilizing a utomated exposure control and iterative reconstruction technique. The dose-length product (DLP) was 1 600.71 mGy-cm. COMPARISON: 08/06/2020 Findings: Scans through the lung bases are unremarkable. The liver, spleen, pancreas, gallbladder, adrenals and kidneys are within normal limits. No evidence of aortic aneurysm. No lymphadenopathy. No bowel obstruction or bowel wall thickening. There is no evidence to suggest acute appendicitis. Sm all to moderate fat-containing umbilical hernia noted. Images through the pelvis were performed. Urinary bladder unremarkable. No pelvic mass seen. No ascit es. Impression: Small to moderate fat-containing umbilical hernia. No other significant findings. Reviewed, dictated and finalized at [facility]. Impression: Small to moderate fat-containing umbilical hernia. No other significant findings.
[2022-12-19 10:43] LABS: Estimated Glomerular Filt Rate > 60
[2022-12-19 11:28] LABS: Basophils Percent Auto 0.5 % (0.2-1.2); Eosinophils Absolute Auto 0.2 K/mm3 (0-0.3); Eosinophils Percent Auto 2.6 % (0-4.4); Hemoglobin 13.2 g/dL (14.0-18.0); Immature Granulocyte Absolute 0.03 K/mm3 (0.00-0.031); Immature Granulocyte Percent A 0.4 % (0-0.5); Lymphocytes Absolute Auto 1.38 K/mm3 (0.9-3.2); Lymphocytes Percent Auto 18.6 % (18.3-44.2); Mean Corpuscular HGB Conc 31.4 g/dl (32-36); Mean Corpuscular Hemoglobin 26.2 pg (26-34); Mean Corpuscular Volume 83.3 fl (80-100); Mean Platelet Volume 9.2 fl (7.4-10.4); Monocytes Absolute Auto 0.6 K/mm3 (0.1-0.6); Monocytes Percent Auto 7.8 % (2.6-8.5); Neutrophils Absolute Auto 5.2 K/mm3 (1.3-6.7); Neutrophils Percent Auto 70.1 % (45.5-73.1); Platelet Count Result 287 k/mm3 (150-375); Red Blood Count 5.04 M/mm3 (4.6-6.20); White Blood Count 7.4 K/mm3 (4.5-10.0)
[2022-12-19 11:39] LABS: Alanine Aminotransferase 24 U/L (6-50); Albumin Level 4.4 g/dL (3.5-5.1); Alkaline Phosphatase 101 U/L (38-126); Anion Gap 10 mmol/L (8-16); Aspartate Amino Transferase 26 U/L (17-59); Bilirubin,Total 0.9 mg/dL (0.2-1.3); Blood Urea Nitrogen 18 mg/dL (9-20); Calcium 8.5 mg/dL (8.4-10.2); Carbon Dioxide 25 mmol/L (22-30); Chloride 100 mmol/L (98-107); Estimated Glomerular Filt Rate > 60; Glucose 239 mg/dL (65-110); Potassium 4.1 mmol/L (3.4-5.0); Sodium 135 mmol/L (137-145)
== END 2022-12-19 10:22 | disposition home or self-care (01) ==
LOC: ANHIMG 10:24
PROVIDERS: PCP Internal Medicine; Visit Provider Clinical Nurse Specialist
DX: I63.9 Cerebral infarction, unspecified (principal); I10 Essential (primary) hypertension; E11.9 Type 2 diabetes mellitus without complications; R10.9 Unspecified abdominal pain; K42.9 Umbilical hernia without obstruction or gangrene
CPT/HCPCS: 74177; 80053; 82607; 84443; 85025; Q9967

== ENCOUNTER 2022-12-30 01:50 | Day surgery (SDC) | payer OTHER, SELFPAY ==
[2022-12-16 09:50] VITALS: BMI 36.0
[2022-12-30 10:11] VITALS: BP 151/97; PULSE 107; RESP 20; TEMP 36.1; O2SAT 97
[2022-12-30] MEDS: LACTATED RINGERS 1,000 ML 150 ML IV CONT (10:33)
[2022-12-30 10:34] LABS: Glucose Point of Care 127 mg/dl (65-105)
--- NOTE | 2022-12-30 10:40 | PM.HPGS ---
History of Present Illness History of Present Illness Consent: Risks, benefits, and alternatives have been discussed and questions answered. Patient agrees to proceed with procedure. Chief complaint: neoplasm screening Narrative: Jaden Fortune Jr. is a 57 year old male Presents for screening colonoscopy. Patient's current weight appetite bowel movements are normal. Patient denies abdominal pain. He has had no bleeding. Patient's family history is significant that his father has had colon polyps. Previous colonoscopy 2016 was unremarkable. Patient's more recent history is significant in September 2022 patient underwent a CVA. He has some residual right sided weakness. Review of Systems Review of Systems: Review of systems noncontributory. [facility] Past Medical History Medical History Acute respiratory failure with hypoxia Anemia COVID-19 virus infection CVA (cerebral vascular accident) Diabetes Diabetes mellitus, new onset Essential hypertension Headache History of depression Hypertension Pneumonia Family History Family History Mother Heart disease Social History Social History Social History: Active, independent. Smoking status: Never smoker Second hand tobacco smoke exposure: No Alcohol intake: current Drinks per week: 2 Alcohol use details: DRINKS Substance use: never Substance use type: does not use Lack of Transportation: No Lack of Food: Often True Current Housing: I Have Housing Concerned About Future Housing: No Difficulty Paying Gas/Electric Bills: YES Difficulty Paying for Meds: YES Currently Unemployed: YES Education: Trade/Vocational Certificate Difficulty w/ Childcare or Family Care: No Living arrangements: with family Additional living arrangements comments: , 2 sons and 2 daughters Occupation/Education: occupation Additional occupation/education comments: Works for [employer] Gender identity (if verbalized by the patient): Male Sexual Orientation (if Verbalized by the Patient): Straight or Heterosexual Spiritual care concerns: No Meds Home Medications and Allergies Home Medications Medication Instructions Recorded Confirmed Type amlodipine 10 mg tablet 10 mg PO DAILY 08/08/20 12/30/22 History ascorbic acid (vitamin C) 500 mg 500 mg PO DAILY #30 tabs 08/10/20 12/16/22 Rx tablet (Vitamin C) aspirin 81 mg tablet 81 mg PO DAILY 10/14/22 12/16/22 History brimonidine 0.15 % eye drops 1 drp LEFT EYE Q8H 10/14/22 12/16/22 History dorzolamide 22.3 mg-timolol 6.8 1 drp LEFT EYE BID 10/14/22 12/16/22 History mg/mL eye drops latanoprost 0.005 % eye drops 1 drp EACH EYE QPM 10/14/22 12/16/22 History atorvastatin 80 mg tablet 80 mg PO HS #90 tabs 10/24/22 12/16/22 Rx blood sugar diagnostic (Blood #50 ea 10/24/22 10/24/22 Rx Glucose Test strips) blood-glucose meter #1 ea 10/24/22 10/24/22 Rx bupropion HCl 75 mg tablet 75 mg PO Q12HR #180 tabs 10/24/22 12/16/22 Rx hydrochlorothiazide 50 mg tablet 50 mg PO DAILY #90 tabs 10/24/22 12/16/22 Rx losartan 100 mg tablet 100 mg PO DAILY #90 tabs 10/24/22 12/16/22 Rx metformin 1,000 mg tablet 1,000 mg PO DAILY #90 tabs 10/24/22 12/16/22 Rx insulin glargine 100 unit/mL (3 50 unit (0.5 mL) subcut HS #15 mL 11/11/22 12/16/22 Rx mL) subcutaneous pen (Lantus Solostar U-100 Insulin) cholecalciferol (vitamin D3) 125 125 mcg PO WEEKLY 12/16/22 12/16/22 History mcg (5,000 unit) tablet (Vitamin D3) tirzepatide 2.5 mg/0.5 mL 2.5 mg (0.5 mL) subcut WEEKLY 4 12/17/22 Rx subcutaneous pen injector weeks #2 mL (Mounjaro) linaclotide 145 mcg capsule 145 mcg PO DAILY PRN constipation 12/19/22 Rx (Linzess) #30 caps gabapentin 100 mg capsule 100 mg PO TID #90 caps 12/25/22 Rx insulin regular human 100 unit/mL 1 sliding scale dose
--- NOTE | 2022-12-30 10:46 | WPDANESEPPF ---
Anes - Initial Pre Proc Eval Procedure: Operation Date: 12/30/22 11:00 Proposed Procedures p Screening Colonoscopy - Jasvir Walsh MD Date/Time: 12/30/22 10:46 Surgeon: Jasvir Walsh MD Pre Op Diagnosis: neoplasm screening Patient Data Age: 57 Gender: M Height: 1.83 m Weight: 127.6 kg Last Vital Signs Temp 97 F L 12/30/22 10:11 Pulse 107 H 12/30/22 10:11 Resp 20 12/30/22 10:11 BP 151/97 H 12/30/22 10:11 Pulse Ox 97 12/30/22 10:11 O2 Del Method Room Air 12/30/22 10:11 Allergies Allergy/AdvReac Type Severity Reaction Status Date / Time No Known Allergies Allergy Verified 12/30/22 10:08 Home Medications Medication Instructions Recorded Confirmed Type amlodipine 10 mg tablet 10 mg PO DAILY 08/08/20 12/30/22 History ascorbic acid (vitamin C) 500 mg 500 mg PO DAILY #30 tabs 08/10/20 12/16/22 Rx tablet (Vitamin C) aspirin 81 mg tablet 81 mg PO DAILY 10/14/22 12/16/22 History brimonidine 0.15 % eye drops 1 drp LEFT EYE Q8H 10/14/22 12/16/22 History dorzolamide 22.3 mg-timolol 6.8 1 drp LEFT EYE BID 10/14/22 12/16/22 History mg/mL eye drops latanoprost 0.005 % eye drops 1 drp EACH EYE QPM 10/14/22 12/16/22 History atorvastatin 80 mg tablet 80 mg PO HS #90 tabs 10/24/22 12/16/22 Rx blood sugar diagnostic (Blood #50 ea 10/24/22 10/24/22 Rx Glucose Test strips) blood-glucose meter #1 ea 10/24/22 10/24/22 Rx bupropion HCl 75 mg tablet 75 mg PO Q12HR #180 tabs 10/24/22 12/16/22 Rx hydrochlorothiazide 50 mg tablet 50 mg PO DAILY #90 tabs 10/24/22 12/16/22 Rx losartan 100 mg tablet 100 mg PO DAILY #90 tabs 10/24/22 12/16/22 Rx metformin 1,000 mg tablet 1,000 mg PO DAILY #90 tabs 10/24/22 12/16/22 Rx insulin glargine 100 unit/mL (3 50 unit (0.5 mL) subcut HS #15 mL 11/11/22 12/16/22 Rx mL) subcutaneous pen (Lantus Solostar U-100 Insulin) cholecalciferol (vitamin D3) 125 125 mcg PO WEEKLY 12/16/22 12/16/22 History mcg (5,000 unit) tablet (Vitamin D3) tirzepatide 2.5 mg/0.5 mL 2.5 mg (0.5 mL) subcut WEEKLY 4 12/17/22 Rx subcutaneous pen injector weeks #2 mL (Mounjaro) linaclotide 145 mcg capsule 145 mcg PO DAILY PRN constipation 12/19/22 Rx (Linzess) #30 caps gabapentin 100 mg capsule 100 mg PO TID #90 caps 12/25/22 Rx insulin regular human 100 unit/mL 1 sliding scale dose subcut 12/27/22 Rx injection solution USEASDIRECTD #10 mL Laboratory Tests 12/30/22 10:19 POC Capillary Glucose 127 H mg/dl (65-105) Patient hx anesthesia problems: none Family hx anesthesia problems: none Results Review: All pre-operative results and documents have been reviewed as part of the pre-operative evaluation. [facility] Past Medical History Medical History Acute respiratory failure with hypoxia Anemia COVID-19 virus infection CVA (cerebral vascular accident) Diabetes Diabetes mellitus, new onset Essential hypertension Headache History of depression Hypertension Pneumonia Family History Family History Mother Heart disease Social History Social History Social History: Active, independent. Smoking status: Never smoker Second hand tobacco smoke exposure: No Alcohol intake: current Drinks per week: 2 Alcohol use details: DRINKS Substance use: never Substance use type: does not use Lack of Transportation: No Lack of Food: Often True Current Housing: I Have Housing Concerned About Future Housing: No Difficulty Paying Gas/Electric Bills: YES Difficulty Paying for Meds: YES Currently Unemployed: YES Education: Trade/Vocational Certificate Difficulty w/ Childcare or Family Care: No Living arrangements: with family Additional living arrangements comments: , 2 sons and 2 daughters Occupation/Education: occupation Additional occupation/education comm
[2022-12-30 12:10] VITALS: BP 114/81; PULSE 92; RESP 20; O2SAT 95
[2022-12-30 12:15] LABS: Glucose Point of Care 142 mg/dl (65-105)
[2022-12-30 12:20] VITALS: BP 134/88; PULSE 91; RESP 20; O2SAT 97
[2022-12-30 12:30] VITALS: BP 147/89; PULSE 87; RESP 18; O2SAT 98
== END 2022-12-30 12:47 | disposition home or self-care (01) ==
PROVIDERS: PCP Internal Medicine; Visit Provider Internal Medicine Gastroenterology
PROC: 0DJD8ZZ Inspection of Lower Intestinal Tract, Via Natural or Artificial Opening Endoscopic (ICD-10-PCS; CPT 45378; principal; 2022-12-30 11:00)
DX: Z12.11 Encounter for screening for malignant neoplasm of colon (principal); K63.5 Polyp of colon; K64.8 Other hemorrhoids; I10 Essential (primary) hypertension; E11.9 Type 2 diabetes mellitus without complications; Z79.82 Long term (current) use of aspirin; Z79.4 Long term (current) use of insulin; Z86.73 Personal history of transient ischemic attack (TIA), and cerebral infarction without residual deficits
CPT/HCPCS: 45380; 82948; 88305; J2704; J7120

== ENCOUNTER 2023-10-07 09:58 | Outpatient (CLI) | payer OTHER, SELFPAY ==
--- NOTE | ~2023-10-07 | XR_ITS ---
Right Shoulder Technique: AP and scapular Y views were obtained. Clinical History: Pain Findings: No fracture or dislocation is seen. Osseous alignment is anatomic. The glenohumeral and acr omioclavicular joint spaces are preserved. Soft tissues are unremarkable. Impression: Unremarkable right shoulder radiographs. Reviewed, dictated and finalized at [facility]. [employer] Impression: Unremarkable right shoulder radiographs.
== END 2023-10-07 09:59 | disposition home or self-care (01) ==
PROVIDERS: PCP Internal Medicine; Visit Provider Clinical Nurse Specialist
DX: M25.511 Pain in right shoulder (principal)
CPT/HCPCS: 73030

== ENCOUNTER 2023-12-02 10:45 | Outpatient (RCR) | payer OTHER, SELFPAY ==
--- NOTE | 2023-10-14 13:41 | PTOPEVAL1 ---
Assessment and note entered by Abrahan Ken, PT Evaluation Information Assessment Status Evaluation Diagnosis Right Shoulder Pain Onset October 2022 Subjective Information Reports that since CVA last year he has been noticing increased shoulder. Feels pain at rest. Pain is worse at night and when he is laying down. He sleeps on his back with shoulder elevated. He is normally a side sleeper and is unable to do that right now. He is getting pain on both anterior and latera shoulder. Denies headaches. Pain also increases with overhead activity. Had an X-ray last week and was unremarkable. Reported Pain Level Pain Score 3: Self Report Assessment PT Clinical Summary Mr. Fortune presents with capsular shoulder pattern, weakness, and pain 1 year post stroke. Indication of structural damage are limited due to poor functional shoulder ROM observed this date. Will benefit from skilled therapy to improv shoulder capsule motion to maximize available range as we progress to ADL training and gross functional strengthening. Plan of Care Interventions Electrical Stimulation,Hot Pack/Cold Pack,Manual Therapy,Neuro Re-education,Therapeutic Activities, Therapeutic Exercise PT Services Indicated Yes Treatment Frequency and 2x/week for 10 visits Duration These treatments will address the objective and functional deficits as defined above. The patient will be advanced safely and appropriately in order for the patient to progress towards his/her prior level of function. Additional exercises will be introduced and as well as a comprehensive home exercise program upon discharge, if needed, ?to ensure carryover of functional gains achieved in the clinic. This treatment plan has been reviewed and agreement upon by the patient.
--- NOTE | 2023-10-14 13:41 | OPREHPOC ---
Outpatient Therapy Plan of Care This is a Multidisciplinary Plan of Care that may contain components documented by all disciplines (PT, OT, and ST.) PT Problem 1 PT Problem #1 Knowledge Deficit PT Goal 1 Goal [place] with HEP Target Visit 4 PT Problem 2 PT Problem #2 Pain PT Goal 1 Goal Report no pain greater than 2/10 when sleeping at night to improve quality and duration of sleep Target Visit 6 PT Problem 3 PT Problem #3 Impaired Range of Motion PT Goal 1 Goal Achieve 85 degrees of R shoulder external rotation motion to improve dressing and self care activity Target Visit 10 PT Goal 2 Goal Achieve 170 degrees of R shoulder flexion motion to improve reaching and self care activity Target Visit 10 PT Problem 4 PT Problem #4 Impaired Strength PT Goal 1 Goal Improve R shoulder flexion strength to 4/5 to improve object lifting ability for ADL performance Target Visit 10 PT Goal 2 Goal Improve R shoulder external rotation strength to 4 +/5to improve shoulder stability and functional activity Target Visit 10
--- NOTE | 2023-10-24 16:02 | PCPTNOTE ---
Patient cancelled today's appointment secondary to vehicle issues.
--- NOTE | 2023-11-18 16:42 | PCPTNOTE ---
Patient cancelled today's therapy session.
--- NOTE | 2023-12-02 11:39 | OPREHPOC ---
Outpatient Therapy Plan of Care This is a Multidisciplinary Plan of Care that may contain components documented by all disciplines (PT, OT, and ST.) PT Problem 1 PT Problem #1 Knowledge Deficit PT Goal 1 Goal Person with HEP Target Visit 4 Progress Met PT Problem 2 PT Problem #2 Pain PT Goal 1 Goal Report no pain greater than 2/10 when sleeping at night to improve quality and duration of sleep Target Visit 6 Progress Partially Met PT Problem 3 PT Problem #3 Impaired Range of Motion PT Goal 1 Goal Achieve 85 degrees of R shoulder external rotation motion to improve dressing and self care activity Target Visit 12 Progress Partially Met Comment Progressing PT Goal 2 Goal Achieve 170 degrees of R shoulder flexion motion to improve reaching and self care activity Target Visit 10 Progress Met PT Problem 4 PT Problem #4 Impaired Strength PT Goal 1 Goal Improve R shoulder flexion strength to 4/5 to improve object lifting ability for ADL performance Target Visit 12 Progress Partially Met PT Goal 2 Goal Improve R shoulder external rotation strength to 4 +/5 to improve shoulder stability and functional activity Target Visit 12 Progress Partially Met
--- NOTE | 2023-12-02 11:39 | PTOPPROG ---
Assessment and note entered by Abrahan Ken, PT Evaluation Information Assessment Status Progress Diagnosis Right Shoulder Pain Onset October 2022 Subjective Information Reports that he feels he is heading in the right direction. He has had multiple deaths in the family and has not been able to get to therapy regularly. No severe pain issues but still something there all the time. Sleeping has been better but not great. He has been avoiding sleeping on his R side which has helped. Reports some posterior shoulder pain with radiating into triceps area. Assessment PT Clinical Summary Patient has seen ROM progress with flexion and minimal with rotation at this time. W emphasized continued motion with emphasis on functional range . Will continue to need reinforcement. Compliance has been difficult at this point due to personal family matters that patient needed to attend to including multiple deaths in the family. Will continue therapy as planned. Plan of Care Interventions Electrical Stimulation,Hot Pack/Cold Pack,Manual Therapy,Neuro Re-education,Therapeutic Activities, Therapeutic Exercise PT Services Indicated Yes Treatment Frequency and 2x/week for 10 visits Duration These treatments will address the objective and functional deficits as defined above. The patient will be advanced safely and appropriately in order for the patient to progress towards his/her prior level of function. Additional exercises will be introduced and as well as a comprehensive home exercise program upon discharge, if needed, ?to ensure carryover of functional gains achieved in the clinic. This treatment plan has been reviewed and agreement upon by the patient.
--- NOTE | 2023-12-17 10:51 | PCPTNOTE ---
Patient no showed to appointment this date. Called and left voicemail with patient.
--- NOTE | 2023-12-23 09:16 | PCPTNOTE ---
Patient called and states he is doing better and no longer needs therapy at this time. Patient would like to be discharged at this time.
--- NOTE | 2023-12-26 16:40 | PTOPDC ---
Assessment and note entered by Abrahan Ken, PT Evaluation Information Assessment Status Discharge - Pt Not Present Diagnosis Right Shoulder Pain Onset October 2022 Subjective Information Patient contacted clinic stating that he is doing better and requested discharge from skilled therapy at this time. Assessment PT Clinical Summary Patient will be discharged from skilled therapy at this time per request of discontinuation. Please see last reassessment for discharge status. Plan of Care PT Services Indicated D/C to HEP
== END 2023-12-29 08:25 | disposition home or self-care (01) ==
LOC: ANHGOSHPT 10:45
PROVIDERS: PCP Internal Medicine; Visit Provider Clinical Nurse Specialist
DX: M25.511 Pain in right shoulder (principal)
CPT/HCPCS: 97110; 97112; 97140; 97161; 97530; 99199

== ENCOUNTER 2024-10-18 09:20 | Outpatient (CLI) | payer OTHER, SELFPAY ==
--- OUTSIDE RECORDS SUMMARY | 2024-10-18 10:31 | XMS_ITS | Encounter Summary ---
Author Organization [facility] Address [address] [place] [address] Care Team Providers Care Hotel Operation Manager Name Role Phone Kobi Chacon DO Primary Care Provider [phone] Encounter Details Date Type Department Care Team (Late st Contact Info) Description 10/11/2022 Ophth Exam [facility] [address] [place] [id number] Weston Elizabeth MD [address] [facility] [address] [place], [place] [id number] Social History Tobacco Use Types Packs/Day Years Used Date Smoking Tobacco: Never Smokeless Tobacco: Never Alcohol Use Standard Drinks/Week Comments Never 0 (1 standard drink = 0.6 oz pur e alcohol) AUDIT-C Answer Date Recorded Q1: How often do you have a drink containing alcohol? 4 or more times a week 10/08/2022 Q2: How many drinks containi ng alcohol do you have on a typical day when you are drinking? 1 or 2 Q3: How often do you have si x or more drinks on one occasion? Never 10/08/2022 PHQ-2 Answer Date Recorded PHQ2 TOTAL SCORE 0 10/10/2022 Sex and Gender Information Value Date Recorded Sex Assigned at Not on file Gender Identity Not on file Sexual Orientation Not on file documented as of this encounter Plan of Treatment Not on file documented as of this encounter Visit Diagnoses Not on filedocumented in this encounter Care Teams Hotel Operation Manager Relationship Specialty Start Date End Date Kobi Chacon DO [facility] [place] [address] PCP - General Family Medicine 10/07/22 documented as of this encounter
--- OUTSIDE RECORDS SUMMARY | 2024-10-18 10:31 | XMS_ITS | Encounter Summary ---
Author Organization [facility] Address [address] [facility] [place] [address] Care Team Providers Care Imaging Nurse Name Role Phone Kobi Chacon DO Primary Care Provider [phone] Encounter Details Date Type Department Care Team (Late st Contact Info) Description 10/10/2022 Ophth Exam [facility] [address] [place] [id number] Weston Elizabeth MD [address] [facility] [address] [place], [place] [id number] Social History Tobacco Use Types Packs/Day Years [...] on filedocumented in this encounter Care Teams Imaging Nurse Relationship Specialty Start Date End Date Kobi Chacon DO [facility] [place] [address] PCP - General Family Medicine 10/07/22 documented as of this encounter
--- OUTSIDE RECORDS SUMMARY | 2024-10-18 10:31 | XMS_ITS | Clinical Summary ---
Author Organization [facility] Address [address] [facility] [place] [address] Care Team Providers Care Bookstore Clerk Name Role Phone Kobi Chacon DO Primary Care Provider [phone] Source Comments [facility],non-owned Affiliates and Associated Physician Practices is amultiple site organization consisting of ambulatory clinics and hospital sitesin [place], [place], [place] and [place]. This disclosure is being madepursuant to the Care Everywhere program and may not contain all information available regarding this patient. Last updated 18.[facility] Allergies No known active allergies Medications * Be aware that medications may not be up to date on this document. Alwaysverify current medications with the patient. Medication Sig Dispensed Refills Start Date End Date Status amLODIPine (Norvasc) 10 MG tabletIndications: Hypertension Take 1 (one) tablet by mouth once daily Reasons: High Blood Pressure Disorder Active insulin glargine (Lantus/Semglee) 100 units/mL penIndications:Typ e 2 Diabetes Mellitus Inject 40 (forty) Units subcutaneously at bedtime Reasons: Type 2 Diabetes Active insulin regular human (HumuLIN R; NovoLIN R) 100 UNIT/ML injectionIndicatio ns:Hyperglycemia,T ype 2 Diabetes Mellitus Inject subcutaneously as needed Sliding scale Reasons: High Blood Sugar, Type 2 Diabetes Active aspirin (Aspirin) 81 MG chew tablet Take 1 (one) tablet by mouth once daily 10/11/2022 Active atorvastatin (Lipitor) 80 MG tablet Take 1 (one) tablet by mouth at bedtime 10/11/2022 Active carvedilol (Coreg) 25 MG tablet Take 1 (one) tablet by mouth 2 times daily with morning and evening meal 10/11/2022 Active hydroCHLOROthiazid e (Hydrodiuril) 50 MG tablet Take 1 (one) tablet by mouth once daily 10/11/2022 Active losartan (Cozaar) 100 MG tabletIndications: Hypertension Take 1 (one) tablet by mouth at bedtime Reasons: High Blood Pressure Disorder 10/11/2022 Active metFORMIN (Glucophage) 1000 MG tablet Take 1 (one) tablet by mouth 2 times daily Active netarsudil (Rhopressa) 0.02 % ophthalmic solution Instill 1 (one) drop into left eye every evening 2.5 mL 3 10/25/2022 Active brimonidine (Alphagan P) 0.15 % ophthalmic solution Instill 1 (one) drop into left eye 3 times daily 10 mL 4 01/03/2023 Active dorzolamide-timolo l (Cosopt) 22.3-6.8 MG/ML ophthalmic solution Instill 1 (one) drop into left eye 2 times daily 10 mL 4 01/03/2023 Active latanoprost (Xalatan) 0.005 % ophthalmic solution Instill 1 (one) drop into both eyes at bedtime 2.5 mL 4 01/03/2023 Active Active Problems Problem Noted Date Diagnosed Date COVID-19 10/25/2022 Chronic angle-closure glauco ma of eye, right, moderate stage 10/25/2022 Chronic angle-closure glaucoma of eye, left, sev ere stage 10/25/2022 Overview (10/25/2022): Patient presents to our department after finding of uncontrolled glaucoma during recent evaluation for stroke. Although history of intermittent treatment with medication and apparently his prior surveillance operator did discuss possible laser (probably laser iridotomy) the patient presents with almost unmeasurable visual field in the left eye. Gonio 10/25/2022: Angle closure suspect OD, some evidence of PAS OS;; per Stevenson Garrett, there is suspicion of low peaks of peripheral anterior synechia/creeping angle-closure changes left eye much greater than right on baseline undilated exam today that is probably the basis for asymmetric glaucoma with greater evidence of synechia closure of the angle on the left compared to the right Juan Francisco Garrett MD 10/25/2022 6:41 PM Left pontine stroke 10/08/2022 Diabetes mellitus 10/07/2022 Hypertension 10/07/2022 Right sided weakness 10/07/2022 Hyperlipidemia 02/28/2021 Contact with and (suspected) exposure to other viral communicable diseases 01/30/2021 Fatigue 01/30/2021 Snoring 01/30/2021 Anemia 01/29/2021 Anxiety with depression 01/29/2021 Iron deficiency 01/29/2021 Morbid obesity 01/29/2021 Diabetic ketoacidosis withou t coma associated with type 2 diabetes mellitus 07/21/2020 Albuminuria 09/23/2018 Hypogonadism male 09/23/2018 Organic sexual dysfunction 09/10/2018 Pure hypercholesterolemia 09/10/2018 Overview (10/25/2022): Last Assessment & Plan: Continue atorvastatin. Tolerating without side effects. Vitamin D deficiency 09/10/2018 Immunizations Name Administration Dates Next Due INFLUENZA VACCINE, QUADR. (F LUZONE; FLULAVAL; FLUARIX; AFLURIA QUADRIVALENT; 6MO+), 0.5 ML (IIV4) 07/25/2020 PNEUMOCOCCAL PPSV23 10/25/2020 Social History Tobacco Use Types Packs/Day Years Used Date Smoking Tobacco: Never Smokeless Tobacco: Never Tobacco Cessation:Counseling Given: Not Answered Alcohol Use Standard Drinks/Week Comments Never 0 [...] on file Sexual Orientation Not on file Last Filed Vital Signs Vital Sign Reading Time Taken Comments Blood Pressure 154/95 11/04/2022 10:01 AM CDT Pulse 98 11/04/2022 10:01 AM CDT Temperature 36.7 C (98.1 F) 10/12/2022 3:43 PM TRAVELING PHLEBOTOMIST Respiratory Rate 12 11/04/2022 10:01 AM CDT Oxygen Saturation 97% 10/12/2022 3:43 PM TRAVELING PHLEBOTOMIST Inhaled Oxygen Concentration - - Weight 130.2 kg (287 lb) 11/04/2022 10:01 AM CDT Height 182.9 cm (6') 10/07/2022 8:08 AM TRAVELING PHLEBOTOMIST Body Mass Index 38.92 10/07/2022 8:08 AM TRAVELING PHLEBOTOMIST Plan of Treatment Health Maintenance Due Date Last Done Comments COLOGUARD (AGES 45-75) - COLON CA SCREENING 1966 COLON MONITORING 1966 COLONOSCOPY - COLON CA SCREENING 1966 CT COLONOGRAPHY - COLON CA SCREENING 1966 Colorectal Cancer Screening 1966 FIT - COLON CA SCREENING 1966 FLEX SIG - COLON CA SCREENING 1966 HIV SCREENING 1981 HEPATITIS C SCREENING 01/29/1984 DTAP/TDAP/TD VACCINES (1 - Tdap) 1985 HEPATITIS B VACCINE (1 of 3 - 19+ 3-dose series) 1985 ZOSTER VACCINE (1 of 2) 02/03/2016 PNEUMOCOCCAL VACCINE 50+ (2 of 2 - PCV) 10/25/2021 10/25/2020 PNEUMOCOCCAL VACCINE (2 of 2 - PCV) 10/25/2021 10/25/2020 DIABETES-FOOT EXAM WITH MONOFILAMENT 10/07/2022 DIABETES-HGB A1C 04/06/2023 10/07/2022 DIABETES-SERUM CREATININE 10/13/20232022, 10/11/2022, 10/10/2022, Additional history exists COVID-19 VACCINE ( - season) 2024 INFLUENZA VACCINE (#1) 2024 07/25/2020 DEPRESSION SCREENING 08/11/2024 11/04/2022, 10/07/19 DIABETES - URINE PROTEIN SCREENING 08/11/2024 DIABETES RETINOPATHY SCREENING 10/25/2024 10/25/2022, 10/11/2022, 10/10/2022 HIB VACCINE Aged Out No longer eligi ble based on patient's age to complete this topic HPV VACCINE Aged Out No longer eligi ble based on patient's age to complete this topic MENINGOCOCCAL (Group B) VACCINE Aged Out No longer eligible based on patient's age to complete this topic MENINGOCOCCAL VACCINE Aged Out No derek anais eligible based on patient's age to complete this topic Procedures Procedure Name Priority Date/Time Associated Diagnosis Comments BASIC METABOLIC PANEL (CALCIUM TOTAL) Routine 10/12/2022 3:00 AM TRAVELING PHLEBOTOMIST HEMOGLOBIN A1C Add on 10/07/2022 8:22 AM TRAVELING PHLEBOTOMIST from Last 3 Months or Most Recently Relevant to Health Maintenance Results * (ABNORMAL) BASIC METABOLIC PANEL (CALCIUM TOTAL) (10/12/2022 3:00 AM TRAVELING PHLEBOTOMIST) BUN 17 7 - 26 mg/dL 10/12/2022 3:59 AM [facility] Creatinine 1.13 0.71 - 1.16 mg/dL 10/12/2022 3:59 AM [facility] Sodium 143 136 - 145 mmol/L 10/12/2022 3:59 AM [facility] Potassium 3.9 3.5 - 4.5 mmol/L 10/12/2022 3:59 AM [facility] Chloride 106 98 - 107 mmol/L 10/12/2022 3:59 AM [facility] CO2 16(L) 22 - 29 mmol/L 10/12/2022 3:59 AM [facility] Glucose 224(H) 70 - 115 mg/dL 10/12/2022 3:59 AM [facility] Calcium 8.9 8.4 - 10.2 mg/dL 10/12/2022 3:59 AM [facility] Anion Gap 25(H) 8 - 18 10/12/2022 3:59 AM [facility] BUN/Creatinine Ratio 15 7 - 23 10/12/2022 3:59 AM [facility] Osmolality Calculated 305(H) 270 - 300 mOsm/kg 10/12/2022 3:59 AM [facility] eGFR by CKD-EPI 76(L) >=90 mL/min/1.7 3 m2 10/12/2022 3:59 AM [facility] Blood BLOOD SPECIMEN / Unknown Lab Venipuncture / Unknown 10/12/2022 3:00 AM TRAVELING PHLEBOTOMIST 10/12/2022 3:19 AM TRAVELING PHLEBOTOMIST Sharifa Talley MD LAB - CHEMISTRY RICK CUR[facility] Performing Organization Address City/[facility]/ZIP Co de Phone Number [facility] [address] [place] [address], [place] [phone] * (ABNORMAL) HEMOGLOBIN A1C (10/07/2022 8:22 AM TRAVELING PHLEBOTOMIST) Hemoglobin A1c 7.9(H) <=5.6 % 10/07/2022 12:35 PM [facility] Estimated Average Glucose 180 mg/dL 10/07/2022 12:35 PM [facility] Comment: HbA1c Interpretation: Normal : < 5.7% Pre-diabetes: 5.7-6.4% Diabetes: Equal to or greater than 6.5% Test results diagnostic of diabetes should be repeated for confirmation. Treatment target values recommended by ADA and other clinical organizations should be used to evaluate metabolic control in patients. Reference: [place] Diabetes Association, Standards of Care in Diabetes -2020 In patients 70 years and older consider HbA1c target range of 7.0-7.5% (Reference: Johnny Mendoza et al. JAMDA. 2012) The Sebia assay for the measurement of HbA1c is a National Glycohemoglobin Standardization Program (NGSP) certified method. Blood BLOOD SPECIMEN / Unknown Lab Venipuncture / Unknown 10/07/2022 8:22 AM TRAVELING PHLEBOTOMIST 10/07/2022 10:37 AM TRAVELING PHLEBOTOMIST Sharifa Talley MD LAB - CHEMISTRY RICK CUR[facility] [address] [place] [address], [place] [phone] from Last 3 Months or Most Recently Relevant to Health Maintenance Advance Directives * Full Code (Latest Code Status on File) Date Activated Date Inactivated Comments 10/07/2022 8:30 AM 10/12/2022 6:52 PM Care Teams Bookstore Clerk Relationship Specialty Start Date End Date Kobi Chacon DO [address] [place] [id number] PCP - General Family Medicine 10/07/22
--- OUTSIDE RECORDS SUMMARY | 2024-10-18 10:31 | XMS_ITS | Encounter Summary ---
Author Organization [facility] Address [address] [place] [address] Care Team Providers Care Sole Tier Name Role Phone Pedro Stephen MD Primary Care Provider [phone] Encounter Details Date Type Department Care Team (Late st Contact Info) Description 07/27/2020 Hospital Follow-up Call [facility] Tele[facility] A [address] [address] Rox Gr RN Social History Tobacco Use Types Packs/Day Years Used Date Smoking Tobacco: Never Smokeless Tobacco: Never Alcohol Use Standard Drinks/Week Comments Not Currently 0 (1 standard drink = 0.6 oz pur e alcohol) Sex and Gender Information Value Date Recorded Sex Assigned at Not on file Legal Sex Male 11:15 PM SERVER SYSTEMS ADMINISTRATOR Gender Identity Not on file Sexual Orientation Not on file COVID-19 Exposure Response Date Recorded In the last month, have you been in contact with someone who was confirmed or suspected to have Coronavirus / COVID-19? No / Unsure 07/27/2020 5:14 PM SERVER SYSTEMS ADMINISTRATOR documented as of this encounter Functional Status * RETIRED Are you deaf or do you have serious difficulty hearing Answer Date of Assessment Author Status No 07/21/2020 5:33 PM SERVER SYSTEMS ADMINISTRATOR Activ e * RETIRED Are you blind or do you have serious difficulty seeing, even when wearing glasses? Answer Date of Assessment Author Status No 07/21/2020 5:33 PM SERVER SYSTEMS ADMINISTRATOR Activ e * Do you have serious difficulty walking or climbing stairs? Answer Date of Assessment Author Status No 07/21/2020 5:33 PM SERVER SYSTEMS ADMINISTRATOR Dena Starr RN Active * Do you have difficulty dressing or bathing? Answer Date of Assessment Author Status No 07/21/2020 5:33 PM SERVER SYSTEMS ADMINISTRATOR Dena Starr RN Active * Because of a physical, mental, or emotional condition, do you have difficulty doing errands alone such as visiting a doctor's office or shopping? Answer Date of Assessment Author Status No 07/21/2020 5:33 PM SERVER SYSTEMS ADMINISTRATOR Dena Starr RN Active documented as of this encounter Mental Status * Because of a physical, mental, or emotional condition, do you have serious difficulty concentrating, remembering, or making decisions? Answer Entry Date Author Status No 07/21/2020 5:33 PM Dena Franco RN Active documented in this encounter Plan of Treatment Not on file documented as of this encounter Visit Diagnoses Not on filedocumented in this encounter Additional Health Concerns Infection Onset Date Last Indicated Resolved Time COVID-19 Confirmed Comment:Tested outpatient Positive 07/16/2020 07/21/2020 09/19/2020 12:34 AM SERVER SYSTEMS ADMINISTRATOR documented as of this encounter Care Teams Sole Tier Relationship Specialty Start Date End Date Pedro Stephen MD [address] [place] [address] PCP - General FAMILY PRACTICE 07/21/20 documented as of this encounter
--- OUTSIDE RECORDS SUMMARY | 2024-10-18 10:32 | XMS_ITS | CONTINUITY OF CARE DOCUMENT ---
Author Name prashantelise prashantelise Address Unknown Organization [facility] Address [address] [place] [address] Phone [phone] Care Team Providers Care Rnfa Name Role Phone Phani JANG, Ian Unavailable [phone] MARIANELA GUSTAFSON Unavailable [phone] MARIANELA GUSTAFSON Unavailable [phone] PROBLEMS Condition Status Date Provider Notes Morbid obesity active Ian Jeronimo MD HYPERTENSION, ESSENTIAL echo 01/2021 nllv,lvh, diast Dysfn active Ian Jeronimo MD Anxiety with depression active Ian Jeronimo MD Anemia active Ian Jeronimo MD Iron deficiency active Ian Jeronimo MD Diabetes mellitus, type 2 active Ian cardenas MD Fatigue active Ian Jeronimo MD Snoring r/o sleep apnea--severe SHILPI 03/2021 active 08/16/21 Ian Jeronimo MD Shortness of breath--stress test normal 02/2021 ef 57%, active Ian Jeronimo MD Exposure to COVID-19 coronav irus /pneumonia - vaccinated 12/2020 active Ian Jeronimo MD Hyperlipidemia active Ian Jeronimo MD ENCOUNTERS Date Type Provider Location Encounter Diag nosis - In-person encounter Office Visit Ian Jeronimo MD [facility] Snoring r/o sleep apnea--severe SHILPI 03/2021 - In-person encounter Office Visit Ian Jeronimo MD [place] [facility] Exposure to COVID-19 coronavirus /pneumonia - vaccinated 12/2020Hyperlipidemia - In-person encounter Office Visit Ian Jeronimo MD [facility] Office FatigueSnoring r/o sleep apnea--severe SHILPI hortness of breath--stress test normal 02/2021 ef 57%,Exposure to COVID-19 coronavirus /pneumonia - vaccinated 12/2020 VITAL SIGNS Date Observation Value Provider Body Mass Index (Ratio) 36.89 kg/m2 Manoj Jeronimo MD blood pressure, cuff size regular Cy hazel Arevalo blood pressure, diastolic 76 mm[Hg] Cy hazel Arevalo blood pressure, systolic 140 mm[Hg] Sigrid rosie Mickey oxygen saturation, oximetry 95 % Caitlin Arevalo respiratory rate E&M 16 /min Caitlin Arevalo pulse rate 97 /min Caitlin Robb l weight E&M 272 [lb_av] Caitlin Nestorbel l height E&M 72 [in_i] Caitlin Nestorbel l Body Mass Index (Ratio) 37.16 kg/m2 Manoj Jeronimo MD blood pressure, diastolic 80 mm[Hg] Terell Kam blood pressure, systolic 126 mm[Hg] Marla Navarroharlan Eddy oxygen saturation, oximetry 97 % Lolita Kam respiratory rate E&M 16 /min Donaldo Kam pulse rate 97 /min Lolita Álvaro capri weight E&M 274 [lb_av] Lolita Rea capri height E&M 72 [in_i] Lolita Morgane capri Body Mass Index (Ratio) 36.75 kg/m2 Manoj Jeronimo MD blood pressure, diastolic 90 mm[Hg] Li nkLogic blood pressure, systolic 150 mm[Hg] Orin kLogic blood pressure, resting Yes Cynwillard Arevalo blood pressure, cuff size regular Raoul Arevalo blood pressure, diastolic 90 mm[Hg] Raoul Arevalo blood pressure, systolic 150 mm[Hg] Sigrid Arevalo oxygen saturation, oximetry 94 % Caitlin Arevalo respiratory rate E&M 16 /min Caitlin Arevalo pulse rate 105 /min Caitlin drummond weight E&M 271 [lb_av] Caitlin drummond height E&M 72 [in_i] Caitlin drummond ALLERGIES No Known Drug Allergies HISTORY OF MEDICATION USE Medication Status Instructions Dates Provider Indications Com ments Jardiance 25 mg tablet active Take 1 tablet by mouth once a day Lolita Kam atorvastatin 40 mg tablet active tablet by mouth once a day Good Salmonmedosiel carvedilol 25 mg tablet active tablet by mouth twice a day Good Ferreira FeroSul 325 mg (65 mg iron) tablet active Take 1 tablet by mouth once a day Caitlin Arevalo #30, 30 days supply, Prescribed by [facility] HINES (WIESNER), Filled 10/04/2020 escitalopram oxalate 10 mg tablet active Take 1 tablet by mouth once a day Caitlin Arevalo #30, 30 days supply, Prescribed by ANDRE ARNOLD, Filled 11/20/2020 Humalog KwikPen Insulin 100 unit/mL insulin pen active Inject subcutaneously three times a day as directed Caitlin Arevalo #15, 30 days supply, Prescribed by ANDRE ARNOLD, Filled 10/30/2020 Trulicity 1.5 mg/0.5 mL pen injector active Inject 0.5 ml subcutaneously once a week Caitlin Arevalo #4, 28 days supply, Prescribed by ANDRE ARNOLD, Filled 12/19/2020 losartan 100 mg tablet active Take 1 tablet by mouth every night Caitlin Arevalo #30, 30 days supply, Prescribed by JEMMA BUCKLEY, Filled 01/16/2021 Lantus Solostar U-100 Insulin 100 unit/mL (3 mL) insulin pen active Inject 55 unit subcutaneously every night Caitlin Arevalo #15, 28 days supply, Prescribed by NILS BENNETT, Filled 01/16/2021 Farxiga 5 mg tablet completed Take 1 tablet by mouth every morning - Caitlin Arevalo #30, 30 days supply, Prescribed by JEMMA BUCKLEY, Filled 01/16/2021 clonidine HCl 0.1 mg tablet active Take 1 tablet by mouth three times a day Caitlin Mickey #90, 30 days supply, Prescribed by MARIANELA RODRIGUEZ, Filled 01/16/2021 amlodipine 10 mg tablet active Take 1 tablet by mouth every night Caitlinelan Arevalo #30, 30 days supply, Prescribed by JEMMA BUCKLEY, Filled 01/16/2021 SOCIAL HISTORY Date Observation Value Provider social history E&M S moking History: Mor schuster has never smoked. Good Ferreira smoking status Never smoker Caitlin driver social history reviewed E&M revi ewed - no changes required Good Ferreira smoking status Never smoker Lolita Lovelace social history reviewed E&M revi ewed - no changes required Ian Jeronimo MD social history E&M S moking History: Mor schuster has never smoked. Good Ferreira smoking status Never smoker Caitlin driver INSURANCE PROVIDERS Payer name Policy type / Coverage type [place] red green party ID [facility] [id number] ADVANCE DIRECTIVES Name Date DISCUSSED - NO DECISION MADE TREATMENT PLAN Date Name Performer [id number],S, Good Rodriguez i [id number],S, Good Ahmedza i [id number],S, Good Ahmedza i [id number],S, Good Ahmedza i [id number],S, Good Ahmedza i [id number],S, Good Ahmedza i [id number],S, Good Ahmedza i [id number],S, Good Ahmedza i [id number],S, Good Ahmedza i [id number],S, Good Ahmedza i [id number],S, Good Ahmedza i Cardiology Good Ahmedzai Cardiology Good Ahmedzai Cardiology Good Ahmedzai Cardiology Good Ahmedzai Cardiology Good Ahmedzai Cardiology Ogod Ahmedzai Cardiology Good Ahmedzai Cardiology Good Ahmedzai Cardiology Good Ahmedzai Cardiology Good Ahmedzai Cardiology Good Ahmedzai Date Name Sleep Study Home CT, Coronary Calcium Score Stress Exercise Card iolite Sleep Study Home HISTORY OF PROCEDURES Procedure Date Procedure Name Provider Procedure Notes S tatus EKG Ian Jeronimo MD completed
--- OUTSIDE RECORDS SUMMARY | 2024-10-18 10:32 | XMS_ITS | Clinical Summary ---
Author Organization [facility] Address [address] [address] Care Team Providers Care Idea Worker Name Role Phone Carol Smith MD Primary Care Provider [phone] Social History Tobacco Use Types Packs/Day Years Used Date Smoking Tobacco: Never Assessed Sex and Gender Information Value Date Recorded Sex Assigned at Not on file Legal Sex Male 2:53 PM EDT Gender Identity Not on file Sexual Orientation Not on file Last Filed Vital Signs Vital Sign Reading Time Taken Comments Blood Pressure 144/70 12/19/2020 12:00 PM CDT Pulse 97 12/19/2020 12:00 PM CDT Temperature 35.9 C (96.6 F) 12/19/2020 12:00 PM CDT Respiratory Rate 18 12/19/2020 12:00 PM CDT Oxygen Saturation 97% 12/19/2020 12:00 PM CDT Inhaled Oxygen Concentration - - Weight 127 kg (280 lb) 12/19/2020 12:00 PM CDT Height 182.9 cm (6') 12/19/2020 12:00 PM CDT Body Mass Index 37.97 12/19/2020 12:00 PM CDT Plan of Treatment Health Maintenance Due Date Last Done Comments Hepatitis B Vaccine (1 of 3 - 19+ 3-dose series) 02/02 Colorectal Cancer Screening: Annual FOBT 2015 Colorectal Cancer Screening: Colonoscopy 2015 Colorectal Cancer Screening: Sigmoidoscopy 2015 Diabetes: Hemoglobin A1C 01/04/2021 Diabetes: Ophthalmology Exam 01/04/2021 Diabetes: Pedal Pulse Checked 01/04/2021 Diabetes: Sensory Foot Exam 01/04/2021 Diabetes: Visual Foot Exam 01/04/2021 Pneumococcal Vaccine: Pediat rics (0 to 5 Years) and At-Risk Patients (6 to 64 Years) (2 of 2 - PCV) 10/25/2021 10/25/2020 Influenza Vaccine (#1) 2024 07/25/2020 Care Teams Idea Worker Relationship Specialty Start Date End Date Carol Smith MD [address] [place] [address] PCP - General 12/19/20
--- OUTSIDE RECORDS SUMMARY | 2024-10-18 10:32 | XMS_ITS | Patient Health Summary ---
Author Organization [facility] Address [address] [place] [address] Care Team Providers Care Alarm Adjuster Name Role Phone Kobi Chacon Primary Care Provider [phone] Note from [facility],non-owned Affiliates and Associated Physician Practices is amultiple site organization consisting of ambulatory clinics and hospital sitesin [place], [place], [place]. This disclosure is being madepursuant to the Care Everywhere program and may not contain all information available regarding this patient. Last updated 18.[facility] Allergies No known active allergies Medications * Be aware that medications may not be up to date on this document. Alwaysverify current medications with the patient. * amLODIPine (Norvasc) 10 MG tablet Take 1 (one) tablet by mouth once daily Reasons: High Blood Pressure Disorder * insulin glargine (Lantus/Semglee) 100 units/mL pen Inject 40 (forty) Units subcutaneously at bedtime Reasons: Type 2 Diabetes * insulin regular human (HumuLIN R; NovoLIN R) 100 UNIT/ML injection Inject subcutaneously as needed Sliding scale Reasons: High Blood Sugar, Type 2 Diabetes * aspirin (Aspirin) 81 MG chew tablet(Started 10/11/2022) Take 1 (one) tablet by mouth once daily * atorvastatin (Lipitor) 80 MG tablet(Started 10/11/2022) Take 1 (one) tablet by mouth at bedtime * carvedilol (Coreg) 25 MG tablet(Started 10/11/2022) Take 1 (one) tablet by mouth 2 times daily with morning and evening meal * hydroCHLOROthiazide (Hydrodiuril) 50 MG tablet(Started 10/11/2022) Take 1 (one) tablet by mouth once daily * losartan (Cozaar) 100 MG tablet(Started 10/11/2022) Take 1 (one) tablet by mouth at bedtime Reasons: High Blood Pressure Disorder * metFORMIN (Glucophage) 1000 MG tablet Take 1 (one) tablet by mouth 2 times daily * netarsudil (Rhopressa) 0.02 % ophthalmic solution(Started 10/25/2022) Instill 1 (one) drop into left eye every evening 3 refills by 10/25/2023 * brimonidine (Alphagan P) 0.15 % ophthalmic solution(Started 01/03/2023) Instill 1 (one) drop into left eye 3 times daily 4 refills by 01/03/2024 * dorzolamide-timolol (Cosopt) 22.3-6.8 MG/ML ophthalmic solution(Started 01/03/2023) Instill 1 (one) drop into left eye 2 times daily 4 refills by 01/03/2024 * latanoprost (Xalatan) 0.005 % ophthalmic solution(Started 01/03/2023) Instill 1 (one) drop into both eyes at bedtime 4 refills by 01/03/2024 Active Problems Problem Noted Date Diagnosed Date COVID-19 10/25/2022 Chronic angle-closure glauco ma of eye, right, moderate stage 10/25/2022 Chronic angle-closure glaucoma of eye, left, sev ere stage 10/25/2022 Left pontine stroke 10/08/2022 Diabetes mellitus 10/07/2022 [...] 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 (FLUZONE; FLULAVAL; FLUARIX; AFLURIA QUADRIVALENT; 6MO+), 0.5 ML (IIV4)(Given 07/25/2020) * PNEUMOCOCCAL PPSV23(Given 10/25/2020) Social History Tobacco Use Types Packs/Day Years [...] 36.7 C (98.1 F) 10/12/2022 3:43 PM DIRECTOR PRODUCT Respiratory Rate 12 11/04/2022 10:01 AM CDT Oxygen Saturation 97% 10/12/2022 3:43 PM DIRECTOR PRODUCT Inhaled Oxygen Concentration - - Weight 130.2 kg (287 lb) 11/04/2022 10:01 AM CDT Height 182.9 cm (6') 10/07/2022 8:08 AM DIRECTOR PRODUCT Body Mass Index 38.92 10/07/2022 8:08 AM DIRECTOR PRODUCT Procedures * OPH OCT TEST SLU(Performed 10/25/2022) Performed for Primary open angle glaucoma of both eyes, severe stage * OPH VISUAL FIELD TEST SLU(Performed 10/25/2022) Performed for Primary open angle glaucoma of both eyes, severe stage * GLUCOSE - POINT OF CARE(Performed 10/12/2022) * GLUCOSE - POINT OF CARE(Performed 10/12/2022) * GLUCOSE - POINT OF CARE(Performed 10/12/2022) * CBC W/O DIFFERENTIAL(Performed 10/12/2022) * BASIC METABOLIC PANEL (CALCIUM TOTAL)(Performed 10/12/2022) * GLUCOSE - POINT OF CARE(Performed 10/11/2022) * GLUCOSE - POINT OF CARE(Performed 10/11/2022) * GLUCOSE - POINT OF CARE(Performed 10/11/2022) * GLUCOSE - POINT OF CARE(Performed 10/11/2022) * CBC W/O DIFFERENTIAL(Performed 10/11/2022) * BASIC METABOLIC PANEL (CALCIUM TOTAL)(Performed 10/11/2022) * GLUCOSE - POINT OF CARE(Performed 10/10/2022) * GLUCOSE - POINT OF CARE(Performed 10/10/2022) * GLUCOSE - POINT OF CARE(Performed 10/10/2022) * BASIC METABOLIC PANEL (CALCIUM TOTAL)(Performed 10/10/2022) * CBC W/O DIFFERENTIAL(Performed 10/10/2022) * GLUCOSE - POINT OF CARE(Performed 10/09/2022) * GLUCOSE - POINT OF CARE(Performed 10/09/2022) * GLUCOSE - POINT OF CARE(Performed 10/09/2022) * GLUCOSE - POINT OF CARE(Performed 10/09/2022) * CBC W/O DIFFERENTIAL(Performed 10/09/2022) * BASIC METABOLIC PANEL (CALCIUM TOTAL)(Performed 10/09/2022) * BLOOD TYPE VERIFICATION(Performed 10/09/2022) * GLUCOSE - POINT OF CARE(Performed 10/08/2022) * GLUCOSE - POINT OF CARE(Performed 10/08/2022) * GLUCOSE - POINT OF CARE(Performed 10/08/2022) * ECHO COMPLETE W BUBBLE STUDY(Performed 10/08/2022) Performed for Right sided weakness * CARDIAC EKG ORDER(Performed 10/08/2022) * GLUCOSE - POINT OF CARE(Performed 10/08/2022) * MAGNESIUM BLOOD(Performed 10/08/2022) * PHOSPHORUS BLOOD(Performed 10/08/2022) * LIPID PROFILE(Performed 10/08/2022) * CBC W/O DIFFERENTIAL(Performed 10/08/2022) * BASIC METABOLIC PANEL (CALCIUM TOTAL)(Performed 10/08/2022) * TROPONIN-I HIGH SENSITIVE REFLEX 1HOUR(Performed 10/08/2022) * GLUCOSE - POINT OF CARE(Performed 10/07/2022) * GLUCOSE - POINT OF CARE(Performed 10/07/2022) * MRI BRAIN WO CONTRAST(Performed 10/07/2022) Performed for Right sided weakness * GLUCOSE - POINT OF CARE(Performed 10/07/2022) * TROPONIN-I HIGH SENSITIVE BASELINE + 1HR(Performed 10/07/2022) * GLUCOSE - POINT OF CARE(Performed 10/07/2022) * CT ANGIO BRAIN NECK STROKE(Performed 10/07/2022) Performed for Weakness * PT EVAL AND TREAT(Performed 10/07/2022) * OT EVAL AND TREAT(Performed 10/07/2022) * EKG 12-LEAD(Performed 10/07/2022) Performed for Weakness * TYPE + SCREEN PANEL(Performed 10/07/2022) * HEMOGLOBIN A1C(Performed 10/07/2022) * PT-INR [facility](Performed 10/07/2022) * COMPREHENSIVE METABOLIC PANEL(Performed 10/07/2022) * CBC W AUTO DIFFERENTIAL(Performed 10/07/2022) * CREATININE - POCT INTERFACED(Performed 10/07/2022) * INR WHOLE BLOOD - POINT OF CARE (IP) STROKE(Performed 10/07/2022) * CT BRAIN STROKE(Performed 10/07/2022) Performed for Weakness Results * OCT (10/25/2022 1:47 PM CDT) Anatomical Region Laterality Modality Other 10/25/2022 1:47 PM CDT Juan Francisco Garrett MD OPHTHALMOLOGY SERVIC ES ORDERABLES * Visual [place] (10/25/2022 1:42 PM CDT) Anatomical Region Laterality Modality Other 10/25/2022 1:42 PM CDT Juan Francisco Garrett MD OPHTHALMOLOGY SERVIC ES ORDERABLES * (ABNORMAL) GLUCOSE - POINT OF CARE (10/12/2022 3:50 PM DIRECTOR PRODUCT) Only the most recent of22 resultswithin the time period is included. Glucose WB/POC 277(H) 70 - 115 mg/dL 10/12/2022 4:01 PM DIRECTOR PRODUCT [facility] Specimen Type Cap Fingerstick 2022 4:01 PM DIRECTOR PRODUCT [facility] Blood BLOOD SPECIMEN / Unknown 10/12/2022 3:50 PM DIRECTOR PRODUCT 10/12/2022 4:01 PM DIRECTOR PRODUCT Mukesh Villanueva MD LAB - POINT OF CARE ORDERABLES [facility] [address] [place] [address], [facility] [phone] * (ABNORMAL) CBC W/O DIFFERENTIAL (10/12/2022 3:00 AM DIRECTOR PRODUCT) Only the most recent of5 resultswithin the time period is included. WBC 6.0 3.5 - 10.5 10 3/uL 10/12/2022 3:49 AM [facility] RBC 5.10 4.30 - 5.70 10 6/uL 10/12/2022 3:49 AM [facility] Hemoglobin 13.2 12.0 - 17.6 g/dL 10/12/2022 3:49 AM [facility] Hematocrit 41.9 35.2 - 51.7 % 10/12/2022 3:49 AM [facility] MCV 82.2 80.7 - 98.3 fL 10/12/2022 3:49 AM [facility] MCH 25.9(L) 26.7 - 34.0 pg 10/12/2022 3:49 AM [facility] MCHC 31.5 30.8 - 35.9 g/dL 10/12/2022 3:49 AM [facility] RDW-SD 37.3 36.0 - 50.0 fL 10/12/2022 3:49 AM [facility] RDW-CV 12.5 11.2 - 14.8 % 10/12/2022 3:49 AM [facility] Platelet Count 242 150 - 400 10 3/uL 10/12/2022 3:49 AM [facility] MPV 9.9 9.4 - 12.9 fL 10/12/2022 3:49 AM [facility] nRBC Absolute 0.00 0 10 3/uL 10/12/2022 3:49 AM [facility] nRBC Auto 0.0 0 /100 WBC 10/12/2022 3:49 AM [facility] Blood BLOOD SPECIMEN / Unknown Lab Venipuncture / Unknown 10/12/2022 3:00 AM DIRECTOR PRODUCT 10/12/2022 3:20 AM DIRECTOR PRODUCT Sharifa Talley MD LAB - HEMATOLOGY ORD ERABLES [facility] [address] [place] [address], [facility] [phone] * (ABNORMAL) BASIC METABOLIC PANEL (CALCIUM TOTAL) (10/12/2022 3:00 AM DIRECTOR PRODUCT) Only the most recent of5 resultswithin the time period is included. BUN 17 7 - 26 mg/dL 10/12/2022 3:59 AM [facility] Creatinine 1.13 0.71 - 1.16 mg/dL 10/12/2022 3:59 AM [facility] Sodium 143 136 - 145 mmol/L 10/12/2022 3:59 AM [facility] Potassium 3.9 3.5 - 4.5 mmol/L 10/12/2022 3:59 AM [facility] Chloride 106 98 - 107 mmol/L 10/12/2022 3:59 AM [facility] CO2 16(L) 22 - 29 mmol/L 10/12/2022 3:59 AM [facility] Glucose 224(H) 70 - 115 mg/dL 10/12/2022 3:59 AM [facility] Calcium 8.9 8.4 - 10.2 mg/dL 10/12/2022 3:59 AM [facility] Anion Gap 25(H) 8 - 18 10/12/2022 3:59 AM [facility] BUN/Creatinine Ratio 15 7 - 23 10/12/2022 3:59 AM [facility] Osmolality Calculated 305(H) 270 - 300 mOsm/kg 10/12/2022 3:59 AM [facility] eGFR by CKD-EPI 76(L) >=90 mL/min/1.7 3 m2 10/12/2022 3:59 AM [facility] Blood BLOOD SPECIMEN / Unknown Lab Venipuncture / Unknown 10/12/2022 3:00 AM DIRECTOR PRODUCT 10/12/2022 3:19 AM DIRECTOR PRODUCT Sharifa Talley MD LAB - CHEMISTRY ORDKoki CURRY [address] [address], [facility] [phone] * BLOOD TYPE VERIFICATION (10/09/2022 12:41 AM DIRECTOR PRODUCT) ABO Rh O POS 10/09/2022 1:4 7 AM DIRECTOR PRODUCT [facility] Blood Bank BLOOD SPECIMEN / Unknown Lab Venipuncture / Unknown 10/09/2022 12:41 AM DIRECTOR PRODUCT 10/09/2022 1:24 AM DIRECTOR PRODUCT Michelle Linares MD LAB - BLOOD BANK ORD LEILANI Performing Organization Address City/[facility]/ZIP Co de Phone Number [facility] [address] [place] [address], [facility] [phone] * ECHO COMPLETE W BUBBLE STUDY (10/08/2022 1:19 PM DIRECTOR PRODUCT) Anatomical Region Laterality Modality Chest Echo 10/08/2022 12:3 8 PM DIRECTOR PRODUCT Narrative Procedure Note Desiree Tao MD - 10/08/2022 Sharifa Talley MD ECHOCARDIOGRAPHY RAD IANT * CARDIAC EKG ORDER (10/08/2022 12:57 PM DIRECTOR PRODUCT) Narrative 10/08/2022 12:57 PM DIRECTOR PRODUCT Ordered by an unspecified provider. Scanned Document CARDIAC SERVICES ORD ERABLES * TROPONIN-I HIGH SENSITIVE REFLEX 1HOUR (10/08/2022 5:00 AM DIRECTOR PRODUCT) Troponin I High Sensitive 5 <=35 ng/L 10/08/2022 5:41 AM DIRECTOR PRODUCT [facility] Delta Troponin I HS 10/08/2022 5:41 AM [facility] Comment:Delta value intentio patrice not calculated. Baseline to 1 hour specimen collection interval exceeded. Blood BLOOD SPECIMEN / Unknown Line Draw / Unknown 10/08/2022 5:00 AM DIRECTOR PRODUCT 10/08/2022 5:06 AM DIRECTOR PRODUCT Sharifa Talley MD LAB - CHEMISTRY RICK CURYR Performing Organization Address City/[facility]/ZIP Co de Phone Number [address] [address], [facility] [phone] * PHOSPHORUS BLOOD (10/08/2022 5:00 AM DIRECTOR PRODUCT) Phosphorus 3.1 2.8 - 5.1 mg/dL 10/08/2022 5:42 AM [facility] Blood BLOOD SPECIMEN / Unknown Line Draw / Unknown 10/08/2022 5:00 AM DIRECTOR PRODUCT 10/08/2022 5:12 AM DIRECTOR PRODUCT Sharifa Talley MD LAB - CHEMISTRY RICK CURRY Performing Organization Address [facility]/ZIP Co de Phone Number [address] [address], [facility] [phone] * MAGNESIUM BLOOD (10/08/2022 5:00 AM DIRECTOR PRODUCT) Magnesium 1.9 1.6 - 2.6 mg/dL 10/08/2022 5:42 AM [facility] Blood BLOOD SPECIMEN / Unknown Line Draw / Unknown 10/08/2022 5:00 AM DIRECTOR PRODUCT 10/08/2022 5:12 AM DIRECTOR PRODUCT Sharifa Talley MD LAB - CHEMISTRY RICK CURRY Performing Organization Address [facility]/ZIP Co de Phone Number [address] [address], [facility] [phone] * (ABNORMAL) LIPID PROFILE (10/08/2022 5:00 AM DIRECTOR PRODUCT) Cholesterol Total 195 <200 mg/dL 10/08/2022 5:42 AM [facility] HDL 38(L) >40 mg/dL 10/08/2022 5:42 AM [facility] Comment: ATP III Classification of HDL Cholesterol: <40 mg/dL: Considered a major risk factor. >60 mg/dL: Considered a negative risk factor. LDL Calculated 98 <100 mg/dL 10/08/2022 5:42 AM [facility] Comment: ATP III Classification of LDL Cholesterol: <100 mg/dL: Optimal 100 - 129 mg/dL: Near Optimal/Above Optimal 130 - 159 mg/dL: Borderline High 160 - 189 mg/dL: High >190 mg/dL: Very High Triglycerides 294(H) <150 mg/dL 10/08/2022 5:42 AM [facility] Comment: ATP III Classification of Triglycerides: <150 mg/dL: Normal 150 - 199 mg/dL: Borderline High 200 - 400 mg/dL: High >500 mg/dL: Very High Blood BLOOD SPECIMEN / Unknown Line Draw / Unknown 10/08/2022 5:00 AM DIRECTOR PRODUCT 10/08/2022 5:12 AM DIRECTOR PRODUCT Sharifa Talley MD LAB - CHEMISTRY [facility] Organization Address City/State/ZIP Co de Phone Number [facility] [address] [place] [address], [facility] [phone] * MRI BRAIN WO CONTRAST (10/07/2022 3:33 PM DIRECTOR PRODUCT) Anatomical Region Laterality Modality Head Magnetic Resonan ce 10/07/2022 3:29 PM DIRECTOR PRODUCT Impressions 10/08/2022 7:47 AM DIRECTOR PRODUCT IMPRESSION: 1.Small focus of restricted diffusion in the left roberto compatible with acute left pontine infarction. No evidence of hemorrhagic transformation. 2.No midline shift. > Dictated by Nito Galaviz MD (president celebrity acquistion). Preliminary results were discussed with Dr. Edward by Dr. Galaviz at 10/07/2022 3:32 PM with read back confirmation. IJonatan MD have personally reviewed and interpreted this examination/study. > Interpreting Provider: Jonatan Fortune MD on 10/08/2022 7:47 AM Narrative 10/08/2022 7:47 AM DIRECTOR PRODUCT PROCEDURE: MRI BRAIN WO CONTRAST, DATE/TIME OF EXAM: 10/07/2022 3:33 PM, LOCATION [facility] INDICATION: R53.1: Right sided weakness ADDITIONAL CLINICAL INFORMATION: Ordering Provider Reason For Exam: Stroke workup Technologist Note: Does the patient have a defibrillator, pacemaker, aneurysm clips or implanted mechanical devices?->No Does the patient have metal implants or stents?->No Additional: None. EXAMINATION: Magnetic resonance imaging (MRI) of the brain without contrast HISTORY: R53.1: Right sided weakness; Ordering Provider Reason For Exam: Stroke workup TECHNIQUE: MRI of the brain was performed without contrast according to standard protocol. COMPARISON: CT brain and CTA brain and neck dated 03/06/2023. FINDINGS: No evidence of acute or chronic hemorrhage is identified. There is a small focus of restricted diffusion within the left aspect of the roberto, measuring approximately 1.2 x 0.7 cm, (series 2, image 30), compatible with small acute pontine infarct. No evidence of hemorrhagic transformation. There is mild cerebral volume loss with associated ex vacuo ventricular dilatation. There is a tiny cavum septum pellucidum. No mass lesion, edema, mass effect, or midline shift is seen. Periventricular, subcortical, and pontine white matter FLAIR hyperintensities likely represent sequelae of chronic small vessel ischemic disease. Small chronic infarct in the medial posterior left thalamus. The corpus callosum and sella appear normal. The posterior fossa, brainstem, and craniocervical junction appear normal. The orbits appear normal. There is mild paranasal sinus disease. The mastoid air cells are clear. Normal flow voids are demonstrated in the carotid arteries and basilar artery. The calvarium and visualized cervical spine appear normal. Procedure Note Jonatan Fortune MD - 10/08/2022 PROCEDURE: MRI BRAIN WO CONTRAST, DATE/TIME OF EXAM: 10/07/2022 3:33PM, LOCATION [facility] INDICATION: R53.1: Right sided weakness ADDITIONAL CLINICAL INFORMATION: Ordering Provider Reason For Exam: Stroke workup Technologist Note: Does the patient have a defibrillator, pacemaker, aneurysm clips or implanted mechanical devices?->No Does the patienthave metal implants or stents?->No Additional: None. EXAMINATION: Magnetic resonance imaging (MRI) of the brain withoutcontrast HISTORY: R53.1: Right sided weakness; Ordering Provider Reason For Exam: Stroke workup TECHNIQUE: MRI of the brain was performed without contrast according to standard protocol. COMPARISON: CT brain and CTA brain and neck dated 03/06/2023. FINDINGS: No evidence of acute or chronic hemorrhage is identified. There is asmall focus of restricted diffusion within the left aspect of the roberto,measuring approximately 1.2 x 0.7 cm, (series 2, image 30), compatible with small acute pontine infarct. No evidence of hemorrhagic transformation. Thereis mild cerebral volume loss with associated ex vacuo ventriculardilatation. There is a tiny cavum septum pellucidum. No mass lesion, edema, mass effect, or midline shift is seen. Periventricular, subcortical, andpontine white matter FLAIR hyperintensities likely represent sequelae of chronic small vessel ischemic disease. Small chronic infarct in the medial posterior left thalamus. The corpus callosum and sella appear normal.The posterior fossa, brainstem, and craniocervical junction appear normal. The orbits appear normal. There is mild paranasal sinus disease. The mastoid air cells are clear. Normal flow voids are demonstrated in the carotid arteries and basilar artery. The calvarium and visualizedcervical spine appear normal. IMPRESSION: 1.Small focus of restricted diffusion in the left roberto compatible with acute left pontine infarction. No evidence of hemorrhagictransformation. 2.No midline shift. > Dictated by Nito Galaviz MD (president celebrity acquistion). Preliminary results were discussed with Dr. Edward by Dr. Galaviz 10/07/2022 3:32 PM with read back confirmation. I, Jonatan Fortune MD have personally reviewed and interpretedthis examination/study. > Interpreting Provider: Jonatan Fortune MD on 10/08/2022 7:47 AM Sharifa Talley MD MR ORDERABLES * TROPONIN-I HIGH SENSITIVE BASELINE + 1HR (10/07/2022 9:43 AM DIRECTOR PRODUCT) Troponin I High Sensitive 5 <=35 ng/L 10/07/2022 10:23 AM DIRECTOR PRODUCT [facility] Blood BLOOD SPECIMEN / Unknown Venipuncture / Unknown 10/07/2022 9:43 AM DIRECTOR PRODUCT 10/07/2022 9:53 AM DIRECTOR PRODUCT Sharifa Talley MD LAB - CHEMISTRY RICK Ramos Organization Address City/State/ZIP Co de Phone Number [facility] [address] [place] [address], [facility] [phone] * CT ANGIO BRAIN NECK STROKE (10/07/2022 8:43 AM DIRECTOR PRODUCT) Anatomical Region Laterality Modality Head Computed Tomogra phy 10/07/2022 8:38 AM DIRECTOR PRODUCT Impressions 10/07/2022 8:55 AM DIRECTOR PRODUCT IMPRESSION: 1.Patent intracranial arteries. 2.No stenosis of cervical segments of carotid arteries. The report was drafted by Michael Penaloza MD (vice president fixed income) I, Consuelo Da Silva MD have personally reviewed and interpreted this examination/study. > Interpreting Provider: Consuelo Da Silva MD on 10/07/2022 8:55 AM Narrative 10/07/2022 8:55 AM DIRECTOR PRODUCT PROCEDURE: CT ANGIO BRAIN NECK STROKE, DATE/TIME OF EXAM: 10/07/2022 8:44 AM, LOCATION [facility] INDICATION: R53.1: Weakness ADDITIONAL CLINICAL INFORMATION: Ordering Provider Reason For Exam: Code stroke COMPARISON: No prior vascular imaging is available for comparison. EXAMINATION: CT angiogram of the brain CT angiogram of the neck TECHNIQUE: CT angiography of the head and neck was obtained after administration of intravenous contrast. Three dimensional postprocessing was performed by the technologist and sent to the workstation for review. NASCET criteria was utilized for evaluation of carotid stenosis. Additionally, Viz.AI was used for large vessel occlusion detection. CT dose reduction technique was used, including Automated Exposure Control. CONTRAST: 75 mL Isovue-370 was administered. FINDINGS: CTA brain: *Right carotid system: Normal caliber patent ICA without stenosis. Patent LISA and MCA. Normal anterior communicating artery. *Left carotid system: Normal caliber patent ICA without stenosis. Patent LISA and MCA. Normal anterior communicating artery. *Posterior circulation: Patent vertebral arteries and basilar artery without stenosis. Patent gun club manager. Nonvisualization of bilateral posterior communicating arteries. There is no aneurysm. The dural venous sinuses appear patent. CTA neck: *Aortic arch: Normal without calcification or ostial stenosis. Two-vessel configuration of the branch vessel origin. *Right carotid system: Patent. No stenosis. Calcified plaque at the carotid bifurcation. *Left carotid system: Patent. No stenosis. No calcified plaque. *Right vertebral artery: Patent. No stenosis. No calcified plaque. *Left vertebral artery: Calcified plaque at the origin resulting in stenosis. Otherwise normal caliber. Extravascular findings: No significant finding. Procedure Note Consuelo Da Silva MD - 10/07/2022 PROCEDURE: CT ANGIO BRAIN NECK STROKE, DATE/TIME OF EXAM: :44 AM, LOCATION [facility] INDICATION: R53.1: Weakness ADDITIONAL CLINICAL INFORMATION: Ordering Provider Reason For Exam: Code stroke COMPARISON: No prior vascular imaging is available for comparison. EXAMINATION: CT angiogram of the brain CT angiogram of the neck TECHNIQUE: CT angiography of the head and neck was obtained after administration of intravenous contrast. Three dimensional postprocessing was performed by the technologist and sent to the workstation [employer]. NASCET criteria was utilized for evaluation of carotid stenosis. Additionally, Viz.AI was used for large vessel occlusion detection. CTdose reduction technique was used, including Automated Exposure Control. CONTRAST: 75 mL Isovue-370 was administered. FINDINGS: CTA brain: *Right carotid system: Normal caliber patent ICA without stenosis.Patent LISA and MCA. Normal anterior communicating artery. *Left carotid system: Normal caliber patent ICA without stenosis. Patent LISA and MCA. Normal anterior communicating artery. *Posterior circulation: Patent vertebral arteries and basilar artery without stenosis. Patent gun club manager. Nonvisualization of bilateral posterior communicating arteries. There is no aneurysm. The dural venous sinuses appear patent. CTA neck: *Aortic arch: Normal without calcification or ostial stenosis.Two-vessel configuration of the branch vessel origin. *Right carotid system: Patent. No stenosis. Calcified plaque at thecarotid bifurcation. *Left carotid system: Patent. No stenosis. No calcified plaque. *Right vertebral artery: Patent. No stenosis. No calcified plaque. *Left vertebral artery: Calcified plaque at the origin resulting in stenosis. Otherwise normal caliber. Extravascular findings: No significant finding. IMPRESSION: 1.Patent intracranial arteries. 2.No stenosis of cervical segments of carotid arteries. The report was drafted by Michael Penaloza MD (vice president fixed income) I, Consuelo Da Silva MD have personally reviewed and interpreted this examination/study. > Interpreting Provider: Consuelo Da Silva MD on 10/07/2022 8:55 AM Sharifa Talley MD CT ORDERABLES * EKG 12-LEAD (10/07/2022 8:28 AM DIRECTOR PRODUCT) Ventricular Rate 96 BPM SL MUSE Atrial Rate 96 BPM [facility] MUSE P-R Interval 186 ms [facility] MUSE QRS Duration ms 84 ms H MUSE Q-T Interval ms 364 ms [facility] MUSE QTC Calculation (Bezet) 459 ms SL MUSE Calculated P [place] 22 degrees [facility] MUSE Calculated R [place] 17 degrees [facility] MUSE Calculated T [place] 35 degrees SL MUSE Interpretation EKG NORMAL SINUS RHYTHM NORMAL ECG NO PREVIOUS ECGS AVAILABLE Confirmed by Krystal JANG, Chey ([id number]) on 10/09/2022 11:56:55 PM [facility] MUSE 10/07/2022 8:28 AM DIRECTOR PRODUCT 10/09/2022 11:56 PM DIRECTOR PRODUCT Juan Francisco Rosenbaum MD ECG ORDERABLES Performing Organization Address [facility] Co de Phone Number [facility] * PT-INR [facility] (10/07/2022 8:22 AM [facility]) Pathologist [facility] PT 12.8 12.1 - 14.8 Seconds 10/07/2022 8:53 AM [facility] INR 1.0 See Comment 10/07/2022 8:53 AM [facility] Comment:The suggested therap eutic range for standard coumadin (warfarin) therapy is an INR of 2.0-3.0. For high-risk patients (Mechanical Mitral Valve Prosthesis, etc.), the suggested prophylactic therapeutic range is an INR of 2.5-3.5. Blood BLOOD SPECIMEN / Unknown Venipuncture / Unknown 10/07/2022 8:22 AM DIRECTOR PRODUCT 10/07/2022 8:27 AM DIRECTOR PRODUCT Juan Francisco Rosenbaum MD LAB - COAGULATION OR DERABLES [facility] [address] [place] [address], [facility] [phone] * (ABNORMAL) HEMOGLOBIN A1C (10/07/2022 8:22 AM DIRECTOR PRODUCT) Hemoglobin A1c 7.9(H) <=5.6 % 10/07/2022 12:35 PM [facility] Estimated Average Glucose 180 mg/dL 10/07/2022 12:35 PM [facility] Comment: HbA1c Interpretation: Normal : < 5.7% Pre-diabetes: 5.7-6.4% Diabetes: Equal to or greater than 6.5% Test results diagnostic of diabetes should be repeated for confirmation. Treatment target values recommended by ADA and other clinical organizations should be used to evaluate metabolic control in patients. Reference: [place] [employer] Association, Standards of Care in Diabetes -2020 In patients 70 years and older consider HbA1c target range of 7.0-7.5% (Reference: Johnny Mendoza et al. JAMDA. 2012) The Sebia assay for the measurement of HbA1c is a National Glycohemoglobin Standardization Program (NGSP) certified method. Blood BLOOD SPECIMEN / Unknown Lab Venipuncture / Unknown 10/07/2022 8:22 AM DIRECTOR PRODUCT 10/07/2022 10:37 AM DIRECTOR PRODUCT Sharifa Talley MD LAB - CHEMISTRY GENOE PATRICIO Performing Organization Address City/[facility]/ZIP Co de Phone Number [facility] [address] [place] [address], [facility] [phone] * TYPE + SCREEN PANEL (10/07/2022 8:22 AM DIRECTOR PRODUCT) Antibody Screen NEG 9:27 AM [facility] ABO Rh O POS 10/07/2022 9:27 AM [facility] Blood Bank BLOOD SPECIMEN / Unknown Venipuncture / Unknown 10/07/2022 8:22 AM DIRECTOR PRODUCT 10/07/2022 8:27 AM DIRECTOR PRODUCT Juan Francisco Rosenbaum MD LAB - BLOOD BANK ORD ERAFLACO [facility] [address] [place] [address], [facility] [phone] * (ABNORMAL) CBC W AUTO DIFFERENTIAL (10/07/2022 8:22 AM [facility]) WBC 5.7 3.5 - 10.5 10 3/uL 10/07/2022 8:31 AM [facility] RBC 5.81(H) 4.30 - 5.70 10 6/uL 10/07/2022 8:31 AM [facility] Hemoglobin 15.0 12.0 - 17.6 g/dL 10/07/2022 8:31 AM [facility] Hematocrit 47.3 35.2 - 51.7 % 10/07/2022 8:31 AM [facility] MCV 81.4 80.7 - 98.3 fL 10/07/2022 8:31 AM [facility] MCH 25.8(L) 26.7 - 34.0 pg 10/07/2022 8:31 AM [facility] MCHC 31.7 30.8 - 35.9 g/dL 10/07/2022 8:31 AM [facility] RDW-SD 36.5 36.0 - 50.0 fL 10/07/2022 8:31 AM [facility] RDW-CV 12.3 11.2 - 14.8 % 10/07/2022 8:31 AM [facility] Platelet Count 297 150 - 400 10 3/uL 10/07/2022 8:31 AM [facility] MPV 9.2(L) 9.4 - 12.9 fL 10/07/2022 8:31 AM [facility] nRBC Absolute 0.00 0 10 3/uL 10/07/2022 8:31 AM [facility] nRBC Auto 0.0 0 /100 WBC 10/07/2022 8:31 AM [facility] Neutrophils % 67.1 35.0 - 70.0 % 10/07/2022 8:31 AM [facility] Lymphocytes % 21.3 20.0 - 43.0 % 10/07/2022 8:31 AM [facility] Monocytes % 7.7 5.0 - 13.0 % 10/07/2022 8:31 AM [facility] Eosinophils % 2.8 0.0 - 6.0 % 10/07/2022 8:31 AM [facility] Basophil % 0.7 0.0 - 2.0 % 10/07/2022 8:31 AM [facility] Neutrophils Absolute 3.81 1.60 - 7.00 10 3/uL 10/07/2022 8:31 AM [facility] Lymphocyte Absolute 1.21 1.10 - 3.90 10 3/uL 10/07/2022 8:31 AM [facility] Monocytes Absolute 0.44 0.26 - 1.07 10 3/uL 10/07/2022 8:31 AM [facility] Eosinophils Absolute 0.16 0.00 - 0.47 10 3/uL 10/07/2022 8:31 AM [facility] Basophils Absolute 0.04 0.00 - 0.08 10 3/uL 10/07/2022 8:31 AM [facility] Immature Granulocytes % 0.4 0.0 - 1.0 % 10/07/2022 8:31 AM [facility] Immature Granulocytes Absolute 0.02 10/07/2022 8:31 AM [facility] Blood BLOOD SPECIMEN / Unknown Venipuncture / Unknown 10/07/2022 8:22 AM DIRECTOR PRODUCT 10/07/2022 8:27 AM [facility] Juan Francisco Rosenbaum MD LAB - HEMATOLOGY ORD ERABLES Performing Organization Address [facility] Co de Phone Number [address] [address] [phone] * (ABNORMAL) COMPREHENSIVE METABOLIC PANEL (10/07/2022 8:22 AM [facility]) BUN 11 7 - 26 mg/dL 10/07/2022 8:58 AM [facility] Creatinine 0.80 0.71 - 1.16 mg/dL 10/07/2022 8:58 AM [facility] Sodium 137 136 - 145 mmol/L 10/07/2022 8:58 AM [facility] Potassium 4.0 3.5 - 4.5 mmol/L 10/07/2022 8:58 AM [facility] Chloride 106 98 - 107 mmol/L 10/07/2022 8:58 AM [facility] CO2 23 22 - 29 mmol/L 10/07/2022 8:58 AM [facility] Glucose 171(H) 70 - 115 mg/dL 10/07/2022 8:58 AM [facility] Calcium 8.8 8.4 - 10.2 mg/dL 10/07/2022 8:58 AM [facility] Protein Total 6.9 6.0 - 8.3 g/dL 10/07/2022 8:58 AM [facility] Albumin 3.6 3.4 - 5.0 g/dL 10/07/2022 8:58 AM [facility] Bilirubin Total 0.8 0.2 - 1.2 mg/dL 10/07/2022 8:58 AM [facility] Alkaline Phosphatase 104 40 - 150 U/L 10/07/2022 8:58 AM [facility] ALT 18 5 - 55 U/L 10/07/2022 8:58 AM [facility] AST 18 5 - 34 U/L 10/07/2022 8:58 AM [facility] Anion Gap 12 8 - 18 10/07/2022 8:58 AM [facility] BUN/Creatinine Ratio 14 7 - 23 10/07/2022 8:58 AM [facility] Osmolality Calculated 287 270 - 300 mOsm/kg 10/07/2022 8:58 AM [facility] Albumin/Globulin Ratio 1.1 1.1 - 2.3 10/07/2022 8:58 AM [facility] eGFR by CKD-EPI >90 >=90 mL/min/1.7 3 m2 10/07/2022 8:58 AM [facility] Blood BLOOD SPECIMEN / Unknown Venipuncture / Unknown 10/07/2022 8:22 AM [facility] 10/07/2022 8:27 AM [facility] Juan Francisco Rosenbaum MD LAB - CHEMISTRY RICK [facility] Organization Address City/State/ZIP Co de Phone Number [facility] [address] [place] [address], [facility] [phone] * CREATININE - POCT INTERFACED (10/07/2022 8:20 AM DIRECTOR PRODUCT) Creatinine POCT 0.81 0.30 - 1.30 mg/dL 10/07/2022 8:21 AM [facility] eGFR >90 >90 mL/min/1.7 3 m2 10/07/2022 8:21 AM [facility] Blood BLOOD SPECIMEN / Unknown 10/07/2022 8:20 AM DIRECTOR PRODUCT 10/07/2022 8:21 AM DIRECTOR PRODUCT Sharifa Talley MD LAB - POINT OF CARE ORDERABLES [facility] [address] [place] [address], [facility] [phone] * INR WHOLE BLOOD - POINT OF CARE (IP) STROKE (10/07/2022 8:19 AM DIRECTOR PRODUCT) INR 1.0 0.9 - 1.2 10/07/2022 8:21 AM [facility] Device [id number] 10/07/2022 8:21 AM [facility] Health Care Technician ID [id number] 10/07/2022 8:21 AM [facility] Blood BLOOD SPECIMEN / Unknown 10/07/2022 8:19 AM DIRECTOR PRODUCT 10/07/2022 8:21 AM DIRECTOR PRODUCT Sharifa Talley MD LAB - POINT OF CARE ORDERABLES [facility] [address] [place] [address], [facility] [phone] * CT BRAIN - Stroke (10/07/2022 8:15 AM DIRECTOR PRODUCT) Anatomical Region Laterality Modality Head Computed Tomogra phy 10/07/2022 8:25 AM DIRECTOR PRODUCT Impressions 10/07/2022 8:27 AM DIRECTOR PRODUCT IMPRESSION: No acute intracranial abnormality. Results of this exam were verbally discussed by Dr. Consuelo Da Silva with Dr. Edward on 10/07/2022 8:23 AM for a Critical Stroke Protocol with readback confirmation and verification. The images were reviewed by attending physician Dr. Consuelo Da Silva prior to this communication. > Interpreting Provider: Consuelo Da iSlva MD on 10/07/2022 8:27 AM Narrative 10/07/2022 8:27 AM DIRECTOR PRODUCT PROCEDURE: CT BRAIN STROKE, DATE/TIME OF EXAM: 10/07/2022 8:18 AM, LOCATION [facility] INDICATION: Code Stroke ADDITIONAL CLINICAL INFORMATION: Right-sided weakness COMPARISON: None. EXAMINATION: CT scan of the head without intravenous contrast TECHNIQUE: CT of the head was performed without intravenous contrast according to standard protocol. CT dose reduction technique was used, including Automated Exposure Control. 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 There are mild chronic microvascular ischemic changes. The brain parenchymal volume is maintained. There is no CT evidence of acute infarct. There is no acute hemorrhage. There is no hydrocephalus, midline shift or extra-axial fluid collection. There is no significant opacification of the paranasal sinuses and tympanomastoid cavities. The orbits are unremarkable. No significant osseous abnormality is noted. Procedure Note Consuelo Da Silva MD - 10/07/2022 PROCEDURE: CT BRAIN STROKE, DATE/TIME OF EXAM: 10/07/2022 8:18 AM, LOCATION [facility] INDICATION: Code Stroke ADDITIONAL CLINICAL INFORMATION: Right-sided weakness COMPARISON: None. EXAMINATION: CT scan of the head without intravenous contrast TECHNIQUE: CT of the head was performed without intravenous contrast according to standard protocol. CT dose reduction technique was used, including Automated Exposure Control. 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 There are mild chronic microvascular ischemic changes. The brain parenchymal volume is maintained. There is no CT evidence of acute infarct. There is no acute hemorrhage. There is no hydrocephalus, midline shiftor extra-axial fluid collection. There is no significant opacification of the paranasal sinuses and tympanomastoid cavities. The orbits are unremarkable. No significant osseous abnormality is noted. IMPRESSION: No acute intracranial abnormality. Results of this exam were verbally discussed by Dr. Consuelo Da Silva with Dr. Edward on 10/07/2022 8:23 AM for a Critical Stroke Protocol with readback confirmation and verification. The images were reviewed by attending physician Dr. Consuelo Da Silva prior to this communication. > Interpreting Provider: Consuelo Da Silva MD on 10/07/2022 8:27 AM Juan Francisco Rosenbaum MD CT ORDERABLES Care Teams Alarm Adjuster Relationship Specialty Start Date End Date Kobi Chacon DO [address] [place] [phone] PCP - General Family Medicine 10/07/22
--- OUTSIDE RECORDS SUMMARY | 2024-10-18 10:32 | XMS_ITS | Referral Summary ---
Author Organization [facility] Address [address] [place] [address] Care Team Providers Care Rn Team Leader Name Role Phone Kobi Chacon Primary Care Provider [phone] Source Comments [facility],non-owned Affiliates and Associated Physician Practices is amultiple site organization consisting of ambulatory clinics and hospital sitesin [place], [place], [place] and [place]. This disclosure is being madepursuant to the Care Everywhere program and may not contain all information available regarding this patient. Last updated 18.[facility] Allergies No known active allergies Medications * [...] treatment with medication and apparently his prior good humor vendor did discuss possible laser (probably laser iridotomy) [...] 36.7 C (98.1 F) 10/12/2022 3:43 PM MATERIAL COMBINER Respiratory Rate 12 11/04/2022 10:01 AM CDT Oxygen Saturation 97% 10/12/2022 3:43 PM MATERIAL COMBINER Inhaled Oxygen Concentration - - Weight 130.2 kg (287 lb) 11/04/2022 10:01 AM CDT Height 182.9 cm (6') 10/07/2022 8:08 AM MATERIAL COMBINER Body Mass Index 38.92 10/07/2022 8:08 AM MATERIAL COMBINER Plan of Treatment Not on file Procedures Procedure Name Priority Date/Time Associated Diagnosis Comments BASIC METABOLIC PANEL (CALCIUM TOTAL) Routine 10/12/2022 3:00 AM MATERIAL COMBINER HEMOGLOBIN A1C Add on 10/07/2022 8:22 AM MATERIAL COMBINER from Last 3 Months or Most Recently Relevant to Health Maintenance Results * (ABNORMAL) BASIC METABOLIC PANEL (CALCIUM TOTAL) (10/12/2022 3:00 AM MATERIAL COMBINER) BUN 17 7 - 26 mg/dL 10/12/2022 3:59 AM [facility] Creatinine 1.13 0.71 - 1.16 mg/dL 10/12/2022 3:59 AM [facility] Sodium 143 136 - 145 mmol/L 10/12/2022 3:59 AM [facility] Potassium 3.9 3.5 - 4.5 mmol/L 10/12/2022 3:59 AM [facility] Chloride 106 98 - 107 mmol/L 10/12/2022 3:59 AM [facility] CO2 16(L) 22 - 29 mmol/L 10/12/2022 3:59 AM [facility] Glucose 224(H) 70 - 115 mg/dL 10/12/2022 3:59 AM [facility] Calcium 8.9 8.4 - 10.2 mg/dL 10/12/2022 3:59 AM [facility] Anion Gap 25(H) 8 - 18 10/12/2022 3:59 AM [facility] BUN/Creatinine Ratio 15 7 - 23 10/12/2022 3:59 AM [facility] Osmolality Calculated 305(H) 270 - 300 mOsm/kg 10/12/2022 3:59 AM [facility] eGFR by CKD-EPI 76(L) >=90 mL/min/1.7 3 m2 10/12/2022 3:59 AM [facility] Blood BLOOD SPECIMEN / Unknown Lab Venipuncture / Unknown 10/12/2022 3:00 AM MATERIAL COMBINER 10/12/2022 3:19 AM MATERIAL COMBINER Sharifa Talley MD LAB - CHEMISTRY RICK CURRY Performing Organization Address City/[facility]/ZIP Co de Phone Number [facility] [address] [place] [address], [place] [phone] * (ABNORMAL) HEMOGLOBIN A1C (10/07/2022 8:22 AM [facility]) Hemoglobin A1c 7.9(H) <=5.6 % 10/07/2022 12:35 PM [facility] Estimated Average Glucose 180 mg/dL 10/07/2022 12:35 PM [facility] Comment: HbA1c Interpretation: Normal : < 5.7% Pre-diabetes: 5.7-6.4% Diabetes: Equal to or greater than 6.5% Test results diagnostic of diabetes should be repeated for confirmation. Treatment target values recommended by ADA and other clinical organizations should be used to evaluate metabolic control in patients. Reference: [place] Diabetes Association, Standards of Care in Diabetes -2020 In patients 70 years and older consider HbA1c target range of 7.0-7.5% (Reference: Johnny Mendoza et al. JAMDA. 2012) The Sebia assay for the measurement of HbA1c is a National Glycohemoglobin Standardization Program (NGSP) certified method. Blood BLOOD SPECIMEN / Unknown Lab Venipuncture / Unknown 10/07/2022 8:22 AM MATERIAL COMBINER 10/07/2022 10:37 AM MATERIAL COMBINER Sharifa Talley MD LAB - CHEMISTRY RICK CURRY [facility] [address] [place] [phone], [place] [phone] from Last 3 Months or Most Recently Relevant to Health Maintenance Advance Directives * Full Code (Latest Code Status on File) Date Activated Date Inactivated Comments 10/07/2022 8:30 AM 10/12/2022 6:52 PM Care Teams Rn Team Leader Relationship Specialty Start Date End Date Kobi Chacon DO [facility] [place] [id number] PCP - General Family Medicine 10/07/22
--- OUTSIDE RECORDS SUMMARY | 2024-10-18 10:32 | XMS_ITS | Clinical Summary ---
Author Organization [facility] Address [address] [place] [address] Care Team Providers Care Alumni Relations Officer Name Role Phone Pedro Stephen MD Primary Care Provider [phone] Allergies No known active allergies Medications TRULICITY 1.5 MG/0.5ML Solution Pen-injector Inject 1.5 mg into the skin weekly. 0 Active LANTUS SOLOSTAR 100 UNIT/ML injection (PEN) Inject 50 Units into the skin nightly. 0 Active metFORMIN 1000 MG tablet Take 1,000 mg by mouth 2 (two) times a day. 0 Active losartan-hydroC HLOROthiazide 100-25 MG tablet Take 1 tablet by mouth daily. 0 Active metoprolol succinate ER 200 MG 24 hr tablet Take 200 mg by mouth daily. 0 Active vitamin D2, ergocalciferol, 67075 UNITS capsule Take 50,000 Units by mouth weekly. 0 Active albuterol sulfate HFA 108 (90 Base) MCG/ACT inhaler Inhale 2 puffs into the lungs every 4 (four) hours as needed for Shortness of breath. 1 Inhaler 1 0 Active amLODIPine 5 MG tablet Take 2 tablets (10 mg total) by mouth daily. 60 tablet 1 0 Active Active Problems Problem Noted Date Diagnosed Date DKA (diabetic ketoacidoses) ([facility]) COVID-19 Diabetic ketoacidosis withou t coma associated with type 2 diabetes mellitus ([facility]) Essential hypertension Immunizations Name Administration Dates Next Due Fluzone 6 Months+ Quad (0.5 mL Prefilled Syringe ) 07/25/2020 Social History Tobacco Use Types Packs/Day Years Used Date Smoking Tobacco: Never Smokeless Tobacco: Never Alcohol Use Standard Drinks/Week Comments Not Currently 0 (1 standard drink = 0.6 oz pur e alcohol) Sex and Gender Information Value Date Recorded Sex Assigned at Not on file Legal Sex 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 Gender Identity Not on file Sexual Orientation Not on file Last Filed Vital Signs Vital Sign Reading Time Taken Comments Blood Pressure 160/94 07/25/2020 9:05 AM TRAY CASTING MACHINE OPERATOR Pulse 80 07/25/2020 9:05 AM TRAY CASTING MACHINE OPERATOR Temperature 36.6 C (97.8 F) 07/25/2020 9:05 AM TRAY CASTING MACHINE OPERATOR Respiratory Rate 18 07/25/2020 9:05 AM TRAY CASTING MACHINE OPERATOR Oxygen Saturation 95% 07/25/2020 9:05 AM TRAY CASTING MACHINE OPERATOR Inhaled Oxygen Concentration - - Weight 115.4 kg (254 lb 6.6 oz) 07/25/2020 5:00 AM TRAY CASTING MACHINE OPERATOR Height 180.3 cm (5' 11 ) 07/21/2020 8:01 AM TRAY CASTING MACHINE OPERATOR Body Mass Index 35.48 07/21/2020 8:01 AM TRAY CASTING MACHINE OPERATOR Plan of Treatment Health Maintenance Due Date Last Done Comments Colorectal Cancer Screening Colonoscopy (10 Years) 1966 Kidney Health Evaluation 1966 Hemoglobin A1C 1966 Lipid Panel 1966 Annual Physical 1969 Pneumococcal Vaccine: Pediat rics (0 to 5 Years) and At-Risk Patients (6 to 64 Years) (1 of 2 - PCV) 02/03/1972 Diabetes: Retinopathy Eye Exam 02/03/1984 Hepatitis C 02/03/1984 DTaP, Tdap and Td Vaccines ( 1 - Tdap) 1985 Hepatitis B Vaccines (1 of 3 - 19+ 3-dose series) 1985 Zoster Vaccines (1 of 2) 02/03/2016 COVID-19 Vaccine (2023-2 5 season) 2024 Influenza Adult (#1) 2024 07/25/2020 Meningococcal B Vaccine Aged Out No l onger eligible based on patient's age to complete this topic Meningococcal Vaccine Aged Out No derek anais eligible based on patient's age to complete this topic RSV Immunizations Under 20 Months Aged Out No longer eligible based on patient's age to complete this topic Insurance [facility] Advance Directives * Full Code (Latest Code Status on File) Date Activated Date Inactivated Comments 07/23/2020 10:49 AM 07/25/2020 2:37 PM * Full Code Date Activated Date Inactivated Comments 07/21/2020 9:38 AM 07/23/2020 10:49 AM Care Teams Alumni Relations Officer Relationship Specialty Start Date End Date Pedro Stephen MD [address] [place] [address] PCP - General FAMILY PRACTICE 07/21/20
[2024-10-18 14:11] LABS: Basophils Percent Auto 0.7 % (0.2-1.2); Eosinophils Absolute Auto 0.1 K/mm3 (0-0.3); Eosinophils Percent Auto 2.4 % (0-4.4); Hematocrit 50.6 % (42.0-52.0); Hemoglobin 14.9 g/dL (14.0-18.0); Immature Granulocyte Absolute 0.01 K/mm3 (0.00-0.031); Immature Granulocyte Percent A 0.2 % (0-0.5); Lymphocytes Absolute Auto 1.34 K/mm3 (0.9-3.2); Mean Corpuscular HGB Conc 29.4 g/dl (32-36); Mean Corpuscular Volume 88.3 fl (80-100); Mean Platelet Volume 10.8 fl (7.4-10.4); Monocytes Absolute Auto 0.4 K/mm3 (0.1-0.6); Monocytes Percent Auto 6.9 % (2.6-8.5); Neutrophils Absolute Auto 3.9 K/mm3 (1.3-6.7); Neutrophils Percent Auto 66.8 % (45.5-73.1); Platelet Count Result 261 k/mm3 (150-375); Red Blood Count 5.73 M/mm3 (4.6-6.20); Red Cell Distribution Width 13.2 % (11.5-14.5); White Blood Count 5.8 K/mm3 (4.5-10.0)
[2024-10-18 14:44] LABS: Alanine Aminotransferase 35 U/L (6-50); Albumin Level 4.5 g/dL (3.5-5.1); Alkaline Phosphatase 98 U/L (38-126); Anion Gap 12 mmol/L (4-12); Aspartate Amino Transferase 49 U/L (17-59); Bilirubin,Total 0.8 mg/dL (0.2-1.3); Blood Urea Nitrogen 11 mg/dL (9-20); Calcium 9.1 mg/dL (8.4-10.2); Carbon Dioxide 28 mmol/L (22-30); Chloride 103 mmol/L (98-107); Cholesterol 108 mg/dL (0-200); Estimated Glomerular Filt Rate > 60; Glucose 111 mg/dL (65-110); HDL Direct 39 mg/dL; Potassium 4.5 mmol/L (3.4-5.0); Sodium 143 mmol/L (137-145); Triglycerides 80 mg/dL (<150)
[2024-10-18 14:54] LABS: Creatinine Urine 109.1 mg/dL
[2024-10-18 14:58] LABS: LDL Cholesterol Direct 43 mg/dL
[2024-10-18 15:04] LABS: Prostate Specific Antigen 0.6 ng/mL (< OR = 4.0)
[2024-10-18 15:22] LABS: Hypochromasia 1+; Platelet Estimate Adequate (Adequate); Schistocytes None Seen
[2024-10-18 15:23] LABS: Band Neutrophils Percent 0 % (0-6)
[2024-10-18 15:33] LABS: Microalbumin Urine Random 369.9 mg/L (0-16.7)
[2024-10-18 15:43] LABS: Hemoglobin A1C 6.4 % (<5.7)
== END 2024-10-18 09:21 | disposition home or self-care (01) ==
PROVIDERS: PCP Internal Medicine; Visit Provider Clinical Nurse Specialist
DX: I63.9 Cerebral infarction, unspecified (principal); E11.9 Type 2 diabetes mellitus without complications; Z79.4 Long term (current) use of insulin; I10 Essential (primary) hypertension; Z12.5 Encounter for screening for malignant neoplasm of prostate
CPT/HCPCS: 36415; 80053; 80061; 82043; 83036; 84153; 84443; 85025; G0103

== ENCOUNTER 2024-10-27 11:48 | Outpatient (CLI) | payer OTHER, SELFPAY ==
--- NOTE | ~2024-10-27 | XR_ITS ---
Left Knee Technique: AP, lateral, and sunrise views were obtained. Clinical History: Pain Findings: No fracture or dislocation is seen. Osseous alignment is anatomic. Joint spaces are preserv ed without degenerative or erosive change. Moderate joint effusion is seen. Impression: Moderate joint effusion. Reviewed, dictated and finalized at [facility]. Impression: Moderate joint effusion.
--- OUTSIDE RECORDS SUMMARY | 2024-10-27 13:34 | XMS_ITS | Encounter Summary ---
Author Organization [facility] Address [address] [place] [address] Care Team Providers Care Bolt Machine Operator Name Role Phone Kobi Chacon DO Primary Care Provider [phone] Encounter Details Date Type Department Care Team (Late st Contact Info) Description 10/10/2022 Ophth Exam [facility] [address] [place] [phone] Weston Elizabeth MD [address] [facility] [address] [place], [place] [id number] Social History Tobacco Use Types Packs/Day Years [...] on filedocumented in this encounter Care Teams Bolt Machine Operator Relationship Specialty Start Date End Date Kobi Chacon DO [facility] [place] [address] PCP - General Family Medicine 10/07/22 documented as of this encounter
--- OUTSIDE RECORDS SUMMARY | 2024-10-27 13:34 | XMS_ITS | Clinical Summary ---
Author Organization [facility] Address [address] [address] Care Team Providers Care Advanced Research Programs Director Name Role Phone Carol Smith MD Primary Care Provider [phone] Social History Tobacco Use Types Packs/Day Years [...] Influenza Vaccine (#1) 2024 07/25/2020 Care Teams Advanced Research Programs Director Relationship Specialty Start Date End Date Carol Smith MD [address] [place] [address] PCP - General 12/19/20
--- OUTSIDE RECORDS SUMMARY | 2024-10-27 13:34 | XMS_ITS | Clinical Summary ---
Author Organization [facility] Address [address] [place] [address] Care Team Providers Care Spinning Frame Tender Name Role Phone Pedro Stephen MD Primary Care Provider [phone] Allergies No known active allergies Medications TRULICITY [...] mouth daily. 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 DEPUTY COMMISSIONER Gender Identity Not on file Sexual Orientation Not on file Last Filed Vital Signs Vital Sign Reading Time Taken Comments Blood Pressure 160/94 07/25/2020 9:05 AM DEPUTY COMMISSIONER Pulse 80 07/25/2020 9:05 AM DEPUTY COMMISSIONER Temperature 36.6 C (97.8 F) 07/25/2020 9:05 AM DEPUTY COMMISSIONER Respiratory Rate 18 07/25/2020 9:05 AM DEPUTY COMMISSIONER Oxygen Saturation 95% 07/25/2020 9:05 AM DEPUTY COMMISSIONER Inhaled Oxygen Concentration - - Weight 115.4 kg (254 lb 6.6 oz) 07/25/2020 5:00 AM DEPUTY COMMISSIONER Height 180.3 cm (5' 11 ) 07/21/2020 8:01 AM DEPUTY COMMISSIONER Body Mass Index 35.48 07/21/2020 8:01 AM DEPUTY COMMISSIONER Plan of Treatment Health Maintenance Due Date [...] patient's age to complete this topic Insurance [facility] Advance Directives * Full Code (Latest Code Status on File) Date Activated Date Inactivated Comments 07/23/2020 10:49 AM 07/25/2020 2:37 PM * Full Code Date Activated Date Inactivated Comments 07/21/2020 9:38 AM 07/23/2020 10:49 AM Care Teams Spinning Frame Tender Relationship Specialty Start Date End Date Pedro Stephen MD [address] [place] [address] PCP - General FAMILY PRACTICE 07/21/20
--- OUTSIDE RECORDS SUMMARY | 2024-10-27 13:34 | XMS_ITS | Encounter Summary ---
Author Organization [facility] Address [address] [place] [address] Care Team Providers Care Decision Science Analyst Name Role Phone Pedro Stephen MD Primary Care Provider [phone] Encounter Details Date Type Department Care Team (Late st Contact Info) Description 07/27/2020 Hospital Follow-up Call [facility] Telemetry Unit A 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 No / Unsure 07/27/2020 5:14 PM ELECTRONIC MAINTENANCE SUPERVISOR documented as of this encounter Functional Status * RETIRED Are you deaf or do you have serious difficulty hearing Answer Date of Assessment Author Status No 07/21/2020 5:33 PM ELECTRONIC MAINTENANCE SUPERVISOR Activ e * RETIRED Are you blind or do you have serious difficulty seeing, even when wearing glasses? Answer Date of Assessment Author Status No 07/21/2020 5:33 PM ELECTRONIC MAINTENANCE SUPERVISOR Activ e * Do you have serious difficulty walking or climbing stairs? Answer Date of Assessment Author Status No 07/21/2020 5:33 PM ELECTRONIC MAINTENANCE SUPERVISOR Dena Starr RN Active * Do you have difficulty dressing or bathing? Answer Date of Assessment Author Status No 07/21/2020 5:33 PM ELECTRONIC MAINTENANCE SUPERVISOR Dena Starr RN Active * Because of a physical, mental, or emotional condition, do you have difficulty doing errands alone such as visiting a doctor's office or shopping? Answer Date of Assessment Author Status No 07/21/2020 5:33 PM ELECTRONIC MAINTENANCE SUPERVISOR Dena Starr RN Active documented as of [...] outpatient Positive 07/16/2020 07/21/2020 09/19/2020 12:34 AM ELECTRONIC MAINTENANCE SUPERVISOR documented as of this encounter Care Teams Decision Science Analyst Relationship Specialty Start Date End Date Pedro Stephen MD [address] [place] [address] PCP - General FAMILY PRACTICE 07/21/20 documented as of this encounter
--- OUTSIDE RECORDS SUMMARY | 2024-10-27 13:34 | XMS_ITS | CONTINUITY OF CARE DOCUMENT ---
Author Name prashantelise prashantelise Address Unknown Organization [facility] Address [address] [place] [address] Phone [phone] Care Team Providers Care Catalogue Illustrator Name Role Phone Phani JANG, Ian Unavailable [phone] MARIANELA GUSTAFSON Unavailable MARIANELA GUSTAFSON Unavailable [phone] PROBLEMS Condition Status Date Provider Notes Morbid [...] In-person encounter Office Visit Ian Jeronimo MD [facility] Office Snoring r/o sleep apnea--severe SHILPI 03/2021 - In-person encounter Office Visit Ian Jeronimo MD [facility] Exposure to COVID-19 coronavirus /pneumonia - vaccinated 12/2020Hyperlipidemia - In-person encounter Office Visit Ian Jeronimo MD [facility] Office FatigueSnoring r/o sleep apnea--severe SHILPI hortness [...] Caitlin drummond weight E&M 271 [lb_av] Caitlin rdummond height E&M 72 [in_i] Caitlin drummond ALLERGIES [...] Payer name Policy type / Coverage type [place] red green party ID [facility] [id number] ADVANCE DIRECTIVES Name Date DISCUSSED - NO DECISION MADE TREATMENT PLAN Date Name Performer [id number],S, Good Rodriguez i [id number],S, Good Ahmedza i [id number],S, Good Ahmedza i [id number],S, Good Ahmedza i [id number],S, Good Ahmedza i [id number],S, Good Ahmedza i [id number],S, Good Ahmedza i [id number],S, Good Ahmedza i [id number],S, Good Ahmedza i [id number],S, Good Ahmedza i [id number],S, Good Ahmedza i Cardiology Good Ahmedzai Cardiology [...]
--- OUTSIDE RECORDS SUMMARY | 2024-10-27 13:34 | XMS_ITS | Clinical Summary ---
Author Organization [facility] Address [address] [place] [address] Care Team Providers Care Strip Deburrer Name Role Phone Kobi Chacon DO Primary Care Provider [phone] Source Comments [facility],non-owned Affiliates and Associated Physician Practices is amultiple site organization consisting of ambulatory clinics and hospital sitesin [place], [place], [place] and [place]. This disclosure is being madepursuant to the Care Everywhere program and may not contain all information available regarding this patient. 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 (probably laser [...] 36.7 C (98.1 F) 10/12/2022 3:43 PM POWER AND RECOVERY SHIFT ENGINEER Respiratory Rate 12 11/04/2022 10:01 AM CDT Oxygen Saturation 97% 10/12/2022 3:43 PM POWER AND RECOVERY SHIFT ENGINEER Inhaled Oxygen Concentration - - Weight 130.2 kg (287 lb) 11/04/2022 10:01 AM CDT Height 182.9 cm (6') 10/07/2022 8:08 AM POWER AND RECOVERY SHIFT ENGINEER Body Mass Index 38.92 10/07/2022 8:08 AM POWER AND RECOVERY SHIFT ENGINEER Plan of Treatment Health Maintenance Due Date [...] complete this topic MENINGOCOCCAL (Group B) VACCINE SHARED DECISION-MAKING Aged Out No longer eligible based on patient's age to complete this topic MENINGOCOCCAL GROUPS A/C/Y/W VACCINE Aged Out No longer eligible based on patient's age to complete this topic Procedures Procedure Name Priority Date/Time Associated Diagnosis Comments BASIC METABOLIC PANEL (CALCIUM TOTAL) Routine 10/12/2022 3:00 AM POWER AND RECOVERY SHIFT ENGINEER HEMOGLOBIN A1C Add on 10/07/2022 8:22 AM POWER AND RECOVERY SHIFT ENGINEER from Last 3 Months or Most Recently Relevant to Health Maintenance Results * (ABNORMAL) BASIC METABOLIC PANEL (CALCIUM TOTAL) (10/12/2022 3:00 AM POWER AND RECOVERY SHIFT ENGINEER) BUN 17 7 - 26 mg/dL 10/12/2022 [...] Lab Venipuncture / Unknown 10/12/2022 3:00 AM POWER AND RECOVERY SHIFT ENGINEER 10/12/2022 3:19 AM POWER AND RECOVERY SHIFT ENGINEER Sharifa Talley MD LAB - CHEMISTRY [facility] [address] [place] [address], [facility] [phone] * (ABNORMAL) HEMOGLOBIN A1C (10/07/2022 8:22 AM POWER AND RECOVERY SHIFT ENGINEER) Hemoglobin A1c 7.9(H) <=5.6 % 10/07/2022 12:35 PM [facility] Estimated Average Glucose 180 mg/dL 10/07/2022 12:35 PM [facility] Comment: HbA1c Interpretation: Normal : < 5.7% Pre-diabetes: 5.7-6.4% Diabetes: Equal to or greater than 6.5% Test results diagnostic of diabetes should be repeated for confirmation. Treatment target values recommended by ADA and other clinical organizations should be used to evaluate metabolic control in patients. Reference: [place] Diabetes Association, Standards of Care in Diabetes -2020 In patients 70 years and older consider HbA1c target range of 7.0-7.5% (Reference: Johnny Mendoza, et al. JAMDA. 2012) The Sebia assay for the measurement of HbA1c is a National Glycohemoglobin Standardization Program (NGSP) certified method. Blood BLOOD SPECIMEN / Unknown Lab Venipuncture / Unknown 10/07/2022 8:22 AM POWER AND RECOVERY SHIFT ENGINEER 10/07/2022 10:37 AM POWER AND RECOVERY SHIFT ENGINEER Sharifa Talley MD LAB - CHEMISTRY [facility] [address] [place] [address], [facility] [phone] from Last 3 Months or Most Recently Relevant to Health Maintenance Advance Directives * Full Code (Latest Code Status on File) Date Activated Date Inactivated Comments 10/07/2022 8:30 AM 10/12/2022 6:52 PM Care Teams Strip Deburrer Relationship Specialty Start Date End Date Kobi Chacon DO [address] [place] [address] PCP - General Family Medicine 10/07/22
--- OUTSIDE RECORDS SUMMARY | 2024-10-27 13:34 | XMS_ITS | Encounter Summary ---
Author Organization [facility] Address [address] [place] [address] Care Team Providers Care Sap Manager Name Role Phone Kobi Chacon DO Primary Care Provider [phone] Encounter Details Date Type Department Care Team (Late st Contact Info) Description 10/11/2022 Ophth Exam [facility] [address] [place] [id number] Weston Elizabeth MD [address] [place], [place] [id number] Social History Tobacco Use Types Packs/Day Years [...] on filedocumented in this encounter Care Teams Sap Manager Relationship Specialty Start Date End Date Kobi Chacon DO [facility] [place] [address] PCP - General Family Medicine 10/07/22 documented as of this encounter
== END 2024-10-27 11:49 | disposition home or self-care (01) ==
PROVIDERS: PCP Clinical Nurse Specialist; Visit Provider Clinical Nurse Specialist
DX: M25.462 Effusion, left knee (principal)
CPT/HCPCS: 73562

== ENCOUNTER 2025-01-13 13:23 | Outpatient (CLI) | payer BC, SELFPAY ==
--- NOTE | ~2025-01-13 | US_ITS ---
Renal-Bladder ultrasound Clinical History: Proteinuria, diabetes Technique: Real-time sonographic imaging of the kidneys and urinary bladder was performed. Findings: The right kidney measures 10.4 cm in length and the left kidney measures 11.8 cm. There is no hydronephrosis or renal calculus identified. Renal cortical echogenicity is within normal limits. No renal mass lesion is identified. The urinary bladder is moderately distended at the time of this exam. No intraluminal echoes are iden tified. No abnormal wall thickening is seen. Impression: Unremarkable ultrasound of the kidneys and urinary bladder. Reviewed, dictated and finalized at location M. Impression: Unremarkable ultrasound of the kidneys and urinary bladder.
== END 2025-01-13 13:24 | disposition home or self-care (01) ==
PROVIDERS: PCP Clinical Nurse Specialist; Visit Provider Internal Medicine Nephrology
DX: E11.29 Type 2 diabetes mellitus with other diabetic kidney complication (principal); R80.9 Proteinuria, unspecified; I10 Essential (primary) hypertension
CPT/HCPCS: 76775

== ENCOUNTER 2025-02-14 13:35 | Outpatient (CLI) | payer BC, SELFPAY ==
--- NOTE | ~2025-02-14 | MR_ITS ---
EXAMINATION: MR knee LT wo con DATE: 02/14/2025 14:25 INDICATION: M25.562 - Pain in left knee TECHNIQUE: Magnetic resonance imaging (MRI) of the left knee was performed without intravenous contra st. Sequences included axial PD-weighted FS FSE, coronal PD-weighted FSE and PD-weighted FS FSE, sagi ttal PD-weighted FSE, and sagittal T2-weighted FS FSE. COMPARISON: X-ray left knee 10/27/2024 FINDINGS: Medial compartment: Severe diffuse cartilage loss. Mild osteophytosis. Complex tear of the posterior horn and body of the medial meniscus involving a vertically oriented tear of the posterior horn and a horizontal type tea r of the body, with significant medial extrusion. Lateral compartment: Mild diffuse cartilage thinning. Mild osteophytosis. Apical blunting of the anterior horn and body of the lateral meniscus Patellofemoral compartment: Partial-thickness fraying over the medial facet and median ridge, with full-thickness cartilage signa l abnormalities. Retinacula intact. Ligaments and tendons: Partial ACL tear. Partial MCL tear. LCL and PCL are intact. Signal abnormality and discontinuity in t he insertion of the popliteus tendon. Abnormal signal deep to the pes anserine tendons. Fluid: Large volume joint effusion. Tiny Starr's cyst. Osseous/other: Mild marrow edema in the MFC and medial condyle IMPRESSION: Complex tearing of the meniscus with extrusion. Apical blunting of the lateral meniscus. Partial tears of the ACL and MCL. Partial tear of the popliteus tendon. Partial tear/bursitis of the pes anserine tendons. Large left knee joint effusion. Reviewed, dictated and finalized at location K.
== END 2025-02-14 13:36 | disposition home or self-care (01) ==
PROVIDERS: PCP Clinical Nurse Specialist; Visit Provider Nurse Practitioner Family
DX: M25.462 Effusion, left knee (principal); S83.232A Complex tear of medial meniscus, current injury, left knee, initial encounter; X58.XXXA Exposure to other specified factors, initial encounter
CPT/HCPCS: 73721

== ENCOUNTER 2025-06-14 08:48 | Outpatient (CLI) | payer MEDICARE, MEDICAID, SELFPAY ==
--- NOTE | ~2025-06-14 | NM_ITS ---
EXAMINATION: NM malick stress w perfusion DATE: 06/14/2025 11:46 INDICATION: Abnormal electrocardiogram. TECHNIQUE: Rest images were obtained following intravenous administration of 10.7 mCi Tc99m tetrofosmin (Myoview). The patient was infused intravenously with Lexiscan (regadenoson). Then, 34.5 mCi Tc99m tetrofosmin (Myoview) was administered intravenously, and stress images were obtained. Data was marvin nstructed into short axis and horizontal and vertical long axis SPECT images. Gated SPECT images were also obtained. COMPARISON: None. FINDINGS: There is no definite reversible or fixed perfusion abnormality to suggest ischemia or infarction. There is no segmental wall motion abnormality. Left ventricular ejection fraction measures 44%. IMPRESSION: 1. No definite ischemia or infarct. 2. Left ventricular ejection fraction measuring 44%. Reviewed, dictated and finalized at location E. ING ALLEY MECHANIC
[2025-06-14] MEDS: PERFLUTREN LIPID MICROSPHERES 1.5 ML VIAL DILUTED TO 10 ML TOTAL VOLUME IV PUSH (08:30)
--- NOTE | 2025-06-14 08:54 | ECHO_ITS ---
Patient Info Name: Jaden Fortune Age: 60 years : 1965 Gender: Male Ht: 71 in Wt: 250 lbs BSA: 2.42 m2 HR: 108 bpm BP: 157 / 106 mmHg Technical Quality: Fair Exam Date: 06/14/2025 8:56 AM Patient Status: O Admit Date: 06/14/2025 Exam Type: CA echo dop color flow w con Complete two-dimensional, color flow and Doppler transthoracic echocardiogram is performed with contrast to opacify the left ventricle and to improve the deliniation of the left ventricle endocardial borders. Staff Referring Physician: Ginette PARIKH Crib Clerk: Narcisa Echavarria Attending Provider: Ginette PARIKH Contrast/Agitated Saline Contrast/Ag. Saline: Definity Amount: 2.00 ml Administered By: Narcisa Echavarria Existing IV Access: Yes IV Access Condition: patent with no signs of infiltration Summary 1. Definity contrast administered improved wall motion interpretation. 2. Left ventricular chamber dimension is normal. 3. Left ventricular systolic function is normal, estimated at 60-65. 4. The left ventricular diastolic function is normal. 5. E/e' 7 is not elevated. 6. No pulmonary hypertension, estimated pulmonary arterial systolic pressure is 18 mmHg. Left Ventricle E/e' 7 is not elevated. Left ventricular chamber dimension is normal. Left ventricular systolic function is normal, estimated at 60-65. The left ventricular diastolic function is normal. Definity contrast administered improved wall motion interpretation. Right Ventricle Right ventricular chamber dimension is normal. Right ventricular systolic function is normal and with normal TAPSE 2.2 cm. Left Atria Left atrial chamber dimension is normal. Right Atria Right atrial chamber dimension is normal. Aortic Valve The aortic valve is trileaflet. There is no aortic valve stenosis. There is no aortic valve regurgitation. Pulmonic Valve There is no pulmonic regurgitation. Mitral Valve There is no mitral valve stenosis. There is no mitral valve regurgitation. Tricuspid Valve There is no tricuspid valve regurgitation. No pulmonary hypertension, estimated pulmonary arterial systolic pressure is 18 mmHg. Pericardium/Pleural There is no pericardial effusion. Inferior Vena Cava Normal inferior vena cava with >50% collapse upon inspiration consistent with normal right atrial pressure, 5 mmHg. Aorta The aortic root size at the sinus of Valsalva is normal. Left Ventricular Outflow Tract Name Value Normal LVOT 2D LVOT Diameter 2.1 cm LVOT Doppler LVOT Peak Velocity 74 cm/s LVOT Peak Gradient 2 mmHg LVOT Mean Gradient 1 mmHg LVOT VTI 12 cm LVOT VTI/AV VTI Ratio 0.7 LVOT Stroke Volume 43 ml LVOT CO 4.3 l/min LVOT CI 1.8 l/min/m2 Pulmonic Valve Name Value Normal RVOT Doppler RVOT Peak Velocity 45 cm/s RVOT Peak Gradient 1 mmHg PV Doppler PV Peak Velocity 96 cm/s PV Peak Gradient 4 mmHg Mitral Valve Name Value Normal MV Diastolic Function MV E Peak Velocity 89 cm/s MV A Peak Velocity 1 cm/s MV E/A 142.7 MV Decel Time (PW) 137 ms MV Annular TDI MV E/e' (Septal) 6.2 MV E/e' (Lateral) 8.3 MV E/e' (Average) 7.2 Tricuspid Valve Name Value Normal TV Regurgitation Doppler TR Peak Velocity 183 cm/s TR Peak Gradient 13 mmHg Estimated PAP/RSVP RA Pressure 5 mmHg <=5 PA Systolic Pressure 18 mmHg <36 RV Systolic Pressure 18 mmHg <36 TV Annular TDI TV Lateral Lary s' Velocity 14.0 cm/s >=9.5 Aorta Name Value Normal Ascending Aorta Ao Root Diameter (MM) 3.6 cm Ao Root Diam Index (MM) 1.5 cm/m2 Aortic Valve Name Value Normal AV Doppler AV Peak Velocity 98 cm/s AV Peak Gradient 4 mmHg AV Mean Gradient 2 mmHg AV VTI 16 cm AV Area (Cont Eq VTI) 2.7 cm2 >=3.0 AV Area (Cont Eq Ja) 2.7 cm2 AV DI (Ja) 0.75 AV Regurgitation 2D LVOT Area 3.6 cm2 Ventricles Name Value Normal LV Dimensions 2D/MM IVS Diastolic Thickness (2D) 1.1 cm 0.6-1.0 LVID Diastole (2D) 5.2 cm 4.2-5.8 LVIW Diastolic Thickness (2D) 1.1 cm 0.6-1.0 LVID Systole (2D) 3.3 cm 2.5-4.0 LVOT Diameter 2.1 cm LV Mass (2D Cubed) 218.49 g 88.00-224.00 LV Mass Index (2D Cubed) 90 g/m2 49-115 Relative Wall Thickness (2D) 0.41 <=0.42 LV Fractional Shortening/Ejection Fraction 2D/MM LV Fractional Shortening (2D) 36 % 25-43 LV EF (2D Teichholz) 65 % LV Diastolic Volume (4C MOD) 105 ml LV EF (4C MOD) 55 % LV Diastolic Volume (2C MOD) 74 ml LV EF (2C MOD) 49 % LV Diastolic Volume (BP MOD) 88 ml 62-150 LV Diastolic Volume Index (BP MOD) 36 ml/m2 34-74 LV Systolic Volume (BP MOD) 43 ml 21-61 LV Systolic Volume Index (BP MOD) 18 ml/m2 11-31 LV EF (BP MOD) 52 % 52-72 LV Diastolic Length (4C) 8.5 cm LV Systolic Length (4C) 7.1 cm LV Stroke Volume (4C MOD) 58 ml Atria Name Value Normal LA Dimensions LA Dimension (MM) 5.0 cm 3.0-4.0 LA Volume (4C A-L) 43 ml LA Volume (BP A-L) 42 ml RA Dimensions RA Area (4C) 15.5 cm2 <=18.0 Report Signatures
--- NOTE | 2025-06-14 08:56 | EST_ITS ---
Patient Info Name: Jaden Fortune Age: 60 years : 1965 Gender: Male Ht: 71 in Wt: 250 lbs BSA: 2.42 m2 HR: 95 bpm BP: 146 / 103 mmHg Exam Date: 06/14/2025 8:56 AM Patient Status: O Admit Date: 06/14/2025 Exam Type: CA stress malick w NM A regadenoson stress test was performed. Staff Referring Physician: Ginette PARIKH Attending Provider: Ginette PARIKH Exercise Technologist: Yeimi Malin Exercise Physician: Fawad Gill DO Summary 1. 1. Negative lexiscan stress test for ischemic ST changes by ECG criteria. 2. 2. Baseline hypertension. 3. 3. Nuclear scan to follow and will be reported separately. Please correlate with it. 4. 4. Patient informed of the above results. Protocol: Lexiscan Stress ECG Details Stage: REST Duration (min): 0 min : 51 sec HR (bpm): 95 SBP (mmHg): 146 DBP (mmHg): 103 Stage: REST Duration (min): 7 min : 50 sec HR (bpm): 95 SBP (mmHg): 146 DBP (mmHg): 103 Stage: STAGE 1 Duration (min): 1 min : 0 sec HR (bpm): 105 SBP (mmHg): 142 DBP (mmHg): 97 Stage: RECOVERY Duration (min): 1 min : 0 sec HR (bpm): 109 SBP (mmHg): 142 DBP (mmHg): 97 Stage: RECOVERY Duration (min): 2 min : 0 sec HR (bpm): 108 SBP (mmHg): 142 DBP (mmHg): 97 Stage: RECOVERY Duration (min): 3 min : 0 sec HR (bpm): 105 SBP (mmHg): 136 DBP (mmHg): 80 Stage: RECOVERY Duration (min): 4 min : 0 sec HR (bpm): 109 SBP (mmHg): 132 DBP (mmHg): 78 Stage: RECOVERY Duration (min): 5 min : 0 sec HR (bpm): 107 SBP (mmHg): 131 DBP (mmHg): 80 Stage: RECOVERY Duration (min): 5 min : 39 sec HR (bpm): 107 SBP (mmHg): 131 DBP (mmHg): 80 Rest HR: 95 bpm Peak HR: 111 bpm Rest Sys BP: 146 mmHg Peak Sys BP: 142 mmHg Max Pred HR: 161 bpm % Max Pred HR: 69 % Target HR: 137 bpm Max RPP: 15,762 bpm*mmHg Termination Reason: Completed protocol Cardiac Symptoms: Shortness of breath Total Time: 1 min : 0 sec Rest Platt BP: 103 mmHg Peak Platt BP: 97 mmHg Total Dose: 0.4 mg Resting ECG Sinus rhythm. Stress ECG No ST changes. Arrhythmias None. Report Signatures
--- OUTSIDE RECORDS SUMMARY | 2025-06-14 09:34 | XMS_ITS | Encounter Summary ---
Author Organization [facility] Address [address] [place] [address] Care Team Providers Care Crystal Mounter Name Role Phone Pedro Stephen MD Primary Care Provider [phone] Encounter Details Date Type Department Care Team (Late st Contact Info) Description 07/27/2020 Hospital Follow-up Call [facility] Telemetry Unit A [address] [place] [address] Rox Gr RN Social History Tobacco Use Types Packs/Day Years Used Date Smoking Tobacco: Never Smokeless Tobacco: Never Alcohol Use Standard Drinks/Week Comments Not Currently 0 (1 standard drink = 0.6 oz pur e alcohol) Sex and Gender Information Value Date Recorded Sex Assigned at Not on file Legal Sex Male 11:15 PM TRANSIT AUTHORITY POLICE OFFICER Gender Identity Not on file Sexual Orientation Not on file COVID-19 Exposure Response Date Recorded In the last month, have you been in contact with someone who was confirmed or suspected to have Coronavirus / COVID-19? No / Unsure 07/27/2020 5:14 PM TRANSIT AUTHORITY POLICE OFFICER documented as of this encounter Functional Status * RETIRED Are you deaf or do you have serious difficulty hearing Answer Date of Assessment Author Status No 07/21/2020 5:33 PM TRANSIT AUTHORITY POLICE OFFICER Activ e * RETIRED Are you blind or do you have serious difficulty seeing, even when wearing glasses? Answer Date of Assessment Author Status No 07/21/2020 5:33 PM TRANSIT AUTHORITY POLICE OFFICER Activ e * Do you have serious difficulty walking or climbing stairs? Answer Date of Assessment Author Status No 07/21/2020 5:33 PM TRANSIT AUTHORITY POLICE OFFICER Dena Starr RN Active * Do you have difficulty dressing or bathing? Answer Date of Assessment Author Status No 07/21/2020 5:33 PM TRANSIT AUTHORITY POLICE OFFICER Dena Starr RN Active * Because of a physical, mental, or emotional condition, do you have difficulty doing errands alone such as visiting a doctor's office or shopping? Answer Date of Assessment Author Status No 07/21/2020 5:33 PM TRANSIT AUTHORITY POLICE OFFICER Dena Starr RN Active documented as of [...] outpatient Positive 07/16/2020 07/21/2020 09/19/2020 12:34 AM TRANSIT AUTHORITY POLICE OFFICER documented as of this encounter Care Teams Crystal Mounter Relationship Specialty Start Date End Date Pedro Stephen MD [address] [place] [address] PCP - General FAMILY PRACTICE 07/21/20 documented as of this encounter
--- OUTSIDE RECORDS SUMMARY | 2025-06-14 09:35 | XMS_ITS | Clinical Summary ---
Author Organization [facility] Address [address] [place] [phone] Care Team Providers Care Dye Room Helper Name Role Phone Ginette Bowling NP Primary Care Provider [phone] Allergies No known active allergies Medications insulin degludec (TRESIBA FLEXTOUCH U-200) 200 unit/mL (3 mL) insulin pen Inject 0.2 mL (40 Units total) under the skin daily. 3 pen 11 2018 Active metFORMIN (GLUCOPHAGE) 1,000 mg tablet Take 1 tablet (1,000 mg total) by mouth 2 (two) times a day with meals One tab by mouth twice a day Active metoprolol XL (TOPROL-XL) 25 mg 24 hr tablet Take 1 tablet (25 mg total) by mouth daily Take once a day Active pen needle, diabetic 31 gauge x 3/16 needle Using 6 daily 200 each 2018 Active ONETOUCH VERIO strip Test blood sugar before meals and HS and with sx of lows - 6x/day 200 each 11 2018 Active tadalafil (CIALIS) 20 mg tabletIndications:Hypo gonadism male A 1 tablet daily 1 hr before intercourse as needed 10 tablet 3 2018 Active cyanocobalamin/folic acid (VITAMIN D25-UHTFP ACID) 500-400 mcg tabletIndications:Type 2 diabetes mellitus with complication, with long-term current use of insulin (HCC) One tablet weekly as directed 30 tablet 2018 Active blood-glucose transmitter (DEXCOM G6 TRANSMITTER) device Change every 90 days 1 Device 3 2018 Active blood-glucose sensor (DEXCOM G6 SENSOR) device Change every 10 days 3 Device 3 2018 Active blood-glucose meter,continuous (DEXCOM G6 DROP WIRE OPERATOR) [facility] Use as directed 1 each 2018 Active amLODIPine (NORVASC) 10 mg tablet Take 1 tablet (10 mg total) by mouth every morning 2024 Active atorvastatin (LIPITOR) 80 mg tablet Take 1 tablet (80 mg total) by mouth nightly 2024 Active semaglutide (OZEMPIC) 0.25 mg or 0.5 mg (2 mg/3 mL) pen injector injection Inject 0.25 mg under the skin once a week 2024 Active cholecalciferol (VITAMIN D-3) 2000 unit capsule Take 1 capsule (2,000 Units total) by mouth every morning Active hydroCHLOROthiazide (HYDRODIURIL) 50 mg tablet Take 1 tablet (50 mg total) by mouth every morning Active losartan (COZAAR) 100 mg tablet Take 1 tablet (100 mg total) by mouth every morning Active meloxicam (MOBIC) 15 mg tablet Take 1 tablet (15 mg total) by mouth daily as needed for pain Active buPROPion XL (WELLBUTRIN XL) 300 mg 24 hr tablet Take 1 tablet (300 mg total) by mouth every morning [address] (CYMBALTA) 30 mg capsule Take 1 capsule (30 mg total) by mouth every morning 2024 Active gabapentin (NEURONTIN) 300 mg capsule Take 1 capsule (300 mg total) by mouth 2 (two) times a day as needed 2024 Active HYDROcodone-acetaminop hen (NORCO) 5-325 mg per tablet Take 1 tablet by mouth every 6 (six) hours as needed 2024 Active latanoprost (XALATAN) 0.005 % ophthalmic solution Administer 1 drop into affected eye(s) nightly 2022 Active brimonidine (ALPHAGAN) 0.15 % ophthalmic solution Administer 1 drop into affected eye(s) 3 (three) times a day 2022 Active dorzolamide-timoloL (COSOPT) 22.3-6.8 mg/mL ophthalmic solution Administer 1 drop into the left eye 2 (two) times a day Active naproxen (NAPROSYN) 500 mg tablet Take 0.5 tablets (250 mg total) by mouth 4 (four) times a day as needed for pain 2024 Active albuterol HFA (PROVENTIL HFA,VENTOLIN HFA,PROAIR HFA) 90 mcg/actuation inhaler Inhale 2 puffs every 4 (four) hours as needed 2019 Active ascorbic acid 500 mg tablet,chewable Take 1 tablet/chew tab (500 mg total) by mouth every morning 2019 Active dulaglutide (TRULICITY) 1.5 mg/0.5 mL pen injector Inject 1.5 mg under the skin every 7 days. Inject 1.5 mg every 7 days 05/19 Discontinued ergocalciferol (VITAMIN D) 50,000 unit capsule Take 1 capsule (50,000 Units total) by mouth every 30 (thirty) days Take once a week 11 05/19 Discontinued atorvastatin (LIPITOR) 40 mg tabletIndications:Type 2 diabetes mellitus with complication, with long-term current use of insulin ([facility]),Pure hypercholesterolemia Take 1 tablet (40 mg total) by mouth daily. 90 tablet 3 05/19 Discontinued amLODIPine (NORVASC) 10 mg tabletIndications:Type 2 diabetes mellitus with complication, with long-term current use of insulin ([facility]),Albuminuria Take 1 tablet (10 mg total) by mouth daily. 90 tablet 3 05/19 Discontinued insulin lispro (HumaLOG KwikPen Insulin) 100 unit/mL insulin penIndications:Type 2 diabetes mellitus with complication, with long-term current use of insulin ([facility]) 10 units 3 times daily with meals plus sliding scale as directed total daily dose 40 units 12 pen 3 05/19 Discontinued losartan (COZAAR) 100 mg tablet Take 1 tablet (100 mg total) by mouth daily Patient needs appointment for further refills 30 tablet 05/19 Discontinued hydroCHLOROthiazide (HYDRODIURIL) 25 mg tablet Take 1 tablet (25 mg total) by mouth daily Patient needs appointment for further refills. 30 tablet 05/19 Discontinued meloxicam (MOBIC) 15 mg tablet Take 1 tablet (15 mg total) by mouth daily 30 tablet 11 05/19 Discontinued Active Problems Problem Noted Date Diagnosed Date Primary osteoarthritis of left knee 05/06/2025 Stroke 08/11/2022 Albuminuria 09/23/2018 Hypogonadism male 09/23/2018 Type 2 diabetes mellitus wit h complication, with long-term current use of insulin 09/10/2018 Overview (09/10/2018): Diabetes was diagnosed approximately at age 38. His weighted diagnosis was around 215 pounds and he presented with classic symptoms of diabetes including weight loss fatigue polyuria polydipsia.. He was initially treated with metformin but was quickly moved to insulin therapy. The patient does have a history of being hospitalized for hyperosmolar state 2009 at a time when he was not taking his medication correctly. He has been on variable insulin regimens including 70 30 with a regular sliding scale. On presentation in the diabetes center September 10, 2018 he was on basal insulin in combination with metformin, sulfonylurea and a weekly G LP -1 trulicity. The GLP-1 agent was added in 2017. September 10, 2018 glipizide was discontinued and he was started on multiple daily injection regimen in combination with metformin and the trulicity Assessment & Plan (12/11/2018 2:52 PM CDT): The patient has type 2 diabetes. He is taking MDI, Trulicity and metformin for his diabetes management. A1C at today's visit of 12/11/18 was 6.7%. He has been having some hypoglycemia, but states this has been at time when he has taken his Humalog and has been delayed in eating. Discussed that he needs to eat within 15 minutes of taking the Humalog. He states he will be able to do this moving forward. Will therefore continue same medications at this time. Eye exam is up to date. Labs are up to date. His last labs showed a low testosterone, and additional labs were ordered by Dr. Rascon (LH, FSH, testosterone). However, he has not had these done. Reminded him to do those labs fasting in the morning, at his convenience at [facility]. He will return for follow-up in 02-[address] Rascon. Essential hypertension 09/10/2018 Assessment & Plan (12/11/2018 2:45 PM CDT): BP elevated today. Will change losartan to losartan HCT 100/25 mg daily. He will monitor BP at home. Advised to call if BP does not improve. Pure hypercholesterolemia 09/10/2018 Assessment & Plan (12/07/2018 12:41 PM CDT): Continue atorvastatin. Tolerating without side effects. Vitamin D deficiency 09/10/2018 Organic sexual dysfunction 09/10/2018 Type 2 diabetes mellitus Hypertension Depression Neuropathy SHILPI (obstructive sleep apnea) Hyperlipidemia Encounters Date Type Department Care Team Description 05/20/[address] [facility] Pre Anesthesia Testing [address] [place] [phone] Elyssa Buchanan RN 05/19/2025 12:15 PM CDT Pre-Admission Testing [facility] Pre Anesthesia Testing [address] [place] [phone] Preop testing (Primary Dx) 05/09/2025 11:00 AM CDT Office Visit [facility] [address] [phone] Justin Dubose MD Primary osteoarthritis of left knee (Primary Dx) 04/26/2025 10:45 AM CDT Office Visit [facility] [address] [phone] Coty Wade NP Primary osteoarthritis of left knee (Primary Dx); Left knee pain, unspecified chronicity; Altered gait; Risk for falls 04/01/2025 1:27 PM CDT - 04/01/2025 11:59 PM CDT Hospital Encounter [facility] - Imaging [phone] Discharge Disposition: Discharge to home or self care 03/31/2025 1:45 PM CDT Ancillary Procedure [facility] [phone] 03/31/2025 1:30 PM CDT Office Visit [facility] [address] [phone] Coty Wade NP Altered gait (Primary Dx); Left knee pain, unspecified chronicity; Primary osteoarthritis of left knee; Risk for falls from Last 3 Months Surgical History Surgery Date Site/Laterality Comments CARPAL TUNNEL RELEASE COLONOSCOPY WISDOM TOOTH EXTRACTION Medical History Medical History Date Comments Type 2 diabetes mellitus Hypertension Stroke (HCC) 2022 right side weakn ess Depression Neuropathy SHILPI (obstructive sleep apnea) Hyperlipidemia Family History Medical History Relation Name Comments Heart disease Mother Relation Name Status Comments Mother Social History Tobacco Use Types Packs/Day Years Used Date Smoking Tobacco: Never Tobacco Cessation:Counseling Given: Not Answered Alcohol Use Standard Drinks/Week Comments Yes 2 (1 standard drink = 0.6 oz pur e alcohol) AUDIT-C Answer Date Recorded Q1: How often do you have a drink containing alc ohol? 2-3 times a week 05/19/2025 Q2: How many drinks containi ng alcohol do you have on a typical day when you are drinking? 1 or 2 05/19/2025 Q3: How often do you have si x or more drinks on one occasion? Never 05/19/2025 Personal Safety Answer Date Recorded Have you ever been in or are you currently in a harmful physical or emotional relationship or is someone making you feel afraid or unsafe? Denies 05/19/2025 Sex and Gender Information Value Date Recorded Sex Assigned at Not on file Legal Sex Male 9:03 AM CENSUS CLERK Gender Identity Not on file Sexual Orientation Not on file Last Filed Vital Signs Vital Sign Reading Time Taken Comments Blood Pressure 152/88 05/19/2025 12:15 PM CDT Pulse 108 05/19/2025 12:15 PM CDT Temperature - - Respiratory Rate - - Oxygen Saturation 93% 05/19/2025 12: 15 PM CDT Inhaled Oxygen Concentration - - Weight 119.2 kg (262 lb 12.8 oz) 2024 12:15 PM CDT Height 180.3 cm (5' 11) 05/19/2025 12: 15 PM CDT Body Mass Index 36.65 05/19/2025 12:15 PM CDT Plan of Treatment Upcoming Encounters Date Type Department Care Team (Late st Contact Info) Description 05/18/2025 11:59 PM CDT Anesthesia Event [facility] Operating Room [address] [place] [phone] Liliana Bowman, E LEARNING DEVELOPER [address] [place] [address] Health Maintenance Due Date Last Done Comments Colon Cancer Screening-Colonoscopy 1966 Depression Screening 1966 Hepatitis C Screening 1966 Prostate Cancer Screening-PSA 1966 Dilated Eye Exam 1966 Foot Exam 1966 DTaP/Tdap/Td Vaccine (1 - Tdap) 1977 Hepatitis B Screening 02/03/1984 Regular Well Visit/Exam 18-64 02/03/1984 Zoster Vaccine (1 of 2) 02/03/2016 Albumin Creatinine Ratio, Urine 09/21/2019 9 Lipid Panel 09/21/2019 09/21/2018 Pneumococcal vaccine <65 (2 of 2 - PCV) 10/25/2021 10/25/2020 Influenza Vaccine (#1) 2025 07/25/2020 Hemoglobin A1C 11/17/2025 05/19/2025, 09/12, 12/11/2018, Additional history exists eGFR 05/19/2026 05/19/2025, 09/21/2018 Procedures Procedure Name Priority Date/Time Associated Diagnosis Comments EGFR Routine 05/19/2025 2:15 PM CDT Preop testing DIFFERENTIAL AUTO Routine 05/19/2025 2:15 PM CDT Preop testing COMPREHENSIVE METABOLIC PANEL Routine 05/19/2025 2:15 PM CDT Preop testing CBC WITH AUTO DIFFERENTIAL Routine 05/19/2025 2:15 PM CDT Preop testing HEMOGLOBIN A1C Routine 05/19/2025 2:15 PM CDT Preop testing ECG 12-LEAD Routine 05/19/2025 1:43 PM CDT Preop testing MRI TRANSFER OF OUTSIDE FILMS Routine 04/01/2025 1:27 PM CDT XR KNEE LEFT 4 OR MORE VIEWS Schedule Routine, Read Routine (OP Routine) 03/31/2025 1:46 PM CDT Left knee pain, unspecified chronicity LIPID PANEL Routine 09/21/2018 8:04 AM CENSUS CLERK Pure hypercholesterolemia ALBUMIN CREATININE RATIO, URINE Routine 09/21/2018 8:04 AM CENSUS CLERK Type 2 diabetes mellitus with complication, with long-term current use of insulin (HCC) from Last 3 Months or Most Recently Relevant to Health Maintenance Results * eGFR (05/19/2025 2:15 PM CDT) eGFR >90 >=60 mL/min/1. 73 m2 Comment: Interpretive Data Reference Interval Normal >/= 90 mL/min/1.73m2 Mildly decreased* 60 - 89 mL/min/1.73m2 Mildly to moderately decreased 45 - 59 mL/min/1.73m2 Moderately to severely decreased 30 - 44 mL/min/1.73m2 Severely decreased 15 - 29 mL/min/1.73m2 Kidney Failure < 15 mL/min/1.73m2 *Relative to young adult level Estimated glomerular filtration rate is determined by the 2020 CKD-EPI equation recommended by the National Kidney Foundation (A Unifying Approach to GFR Estimation: Recommendations of the NKF-ASK Task Force on Reassessing the Inclusion of Race in Diagnosing Kidney Disease, JASN 202). The CKD-EPI equation should not be used for patients with unstable renal function and has not been validated in children and those over 70. Current interpretive data was last reviewed 2021. Blood 05/19/2025 2:15 PM CDT 05/19/2025 2:15 PM CDT us Monica Penaloza NP LAB BLOOD ORDERABLES Final R esult [facility] [address] [place] [address] * Differential, auto (05/19/2025 2:15 PM CDT) Neutrophil abs 5.14 1.50 - 6.50 K/cumm Imm gran abs 0.02 0.00 - 0.10 K/cumm [facility] Lymphocyte abs 1.50 0.80 - 3.30 K/cumm [facility] Monocyte abs 0.57 0.20 - 0.80 K/cumm [facility] Eosinophil abs 0.13 0.00 - 0.50 K/cumm [facility] Basophil abs 0.05 0.00 - 0.10 K/cumm [facility] Neutrophil pct 69.3 % [facility] Comment: Interpretive Data Percent cell count reference ranges are not reported, since discordance with absolute values may lead to misinterpretation of CBC data. Current Interpretive Data was last revised on 2017. Imm gran pct 0.3 % [facility] Comment: Interpretive Data Percent cell count reference ranges are not reported, since discordance with absolute values may lead to misinterpretation of CBC data. Current Interpretive Data was last revised on 2017. Lymphocyte pct 20.2 % [facility] Comment: Interpretive Data Percent cell count reference ranges are not reported, since discordance with absolute values may lead to misinterpretation of CBC data. Current Interpretive Data was last revised on 2017. Monocyte pct 7.7 % [facility] Comment: Interpretive Data Percent cell count reference ranges are not reported, since discordance with absolute values may lead to misinterpretation of CBC data. Current Interpretive Data was last revised on 2017. Eosinophil pct 1.8 % [facility] Comment: Interpretive Data Percent cell count reference ranges are not reported, since discordance with absolute values may lead to misinterpretation of CBC data. Current Interpretive Data was last revised on 2017. Basophil pct 0.7 % [facility] Comment: Interpretive Data Percent cell count reference ranges are not reported, since discordance with absolute values may lead to misinterpretation of CBC data. Current Interpretive Data was last revised on 2017. Blood 05/19/2025 2:15 PM CDT 05/19/2025 2:15 PM CDT Monica Penaloza NP LAB BLOOD ORDERABLES Final R esult Performing Organization Address City/[facility]/ZIP Co de Phone Number [facility] [address] [place] [address] * (ABNORMAL) CBC with auto differential (05/19/2025 2:15 PM CDT) [facility] WBC 7.41 3.80 - 9.90 K/cumm Hgb 13.2 13.0 - 17.5 g/dL [facility] Hct 42.2 38.9 - 50.3 % [facility] Plt 318 150 - 400 K/cumm [facility] MPV 9.5 9.1 - 12.3 fL [facility] RBC 4.93 4.30 - 5.80 M/cumm [facility] MCV 85.6 81.3 - 96.4 fL [facility] MCH 26.8(L) 27.1 - 33.3 pg [facility] MCHC 31.3(L) 32.3 - 35.7 g/dL [facility] RDW CV 13.3 11.1 - 14.9 % [facility] RDW SD 41.2 35.7 - 48.1 fL [facility] NRBC abs 0.00 0.00 - 0.01 K/cumm [facility] Blood 05/19/2025 2:15 PM CDT 05/19/2025 2:15 PM CDT Monica Penaloza NP LAB BLOOD ORDERABLES Final R esult [facility] [address] [place] [address] * (ABNORMAL) Hemoglobin A1c (05/19/2025 2:15 PM CDT) Pathologist [facility] Hgb A1C 8.4(H) 4.0 - 5.6 % Estimated Average Glucose 194 mg/dL [facility] Comment: The ADA recommends reporting an estimated Average Glucose (eAG) with all Hemoglobin A1c results using the equation derived from a study of 507 normal and diabetic adults. Minority populations were underrepresented and children were not included. (Diabetes Care 31:3516-6757, 2008). The eAG is not equivalent to a fasting glucose. Blood 05/19/2025 2:15 PM CDT 05/19/2025 2:15 PM CDT us Monica Penaloza NP LAB BLOOD ORDERABLES Final R esult [facility] [address] Department [place] [address] * (ABNORMAL) Comprehensive metabolic panel (05/19/2025 2:15 PM CDT) Sodium 137 135 - 145 mmol/L Potassium, pl 4.1 3.3 - 4.9 mmol/L [facility] Chloride 99 97 - 110 mmol/L [facility] CO2 25 22 - 32 mmol/L [facility] Anion gap 13 2 - 15 mmol/L [facility] BUN 20 6 - 25 mg/dL [facility] Creatinine 0.91 0.80 - 1.30 mg/dL [facility] Glucose 210(H) 70 - 199 mg/dL [facility] Comment: Interpretive Data Fasting glucose >/= 126 mg/dl is diagnostic for diabetes. Fasting is defined as no caloric intake for at least 8 hours. Fasting glucose between 100 mg/dl to 125 mg/dl is diagnostic of prediabetes. In a patient with classic symptoms of hyperglycemia or hyperglycemic crisis, a random glucose >/= 200 mg/dl is diagnostic for diabetes. In the absence of unequivocal hyperglycemia, results should be confirmed by repeat testing. The classification and Diagnosis of Diabetes Diabetes Care 202; 46: S19-S40. Current interpretive data was last revised 2022. Calcium 9.9 8.5 - 10.3 mg/dL [facility] Bilirubin, total 0.7 0.1 - 1.2 mg/dL [facility] Protein, pl 7.5 6.5 - 8.5 g/dL [facility] Albumin 4.4 3.5 - 5.0 g/dL [facility] Alk phos 119 40 - 130 Units/L [facility] ALT 50 7 - 55 Units/L [facility] AST 31 10 - 50 Units/L [facility] Comment:Slightly Hemolyzed S pecimen Blood 05/19/2025 2:15 PM CDT 05/19/2025 2:15 PM CDT Monica Penaloza NP LAB BLOOD ORDERABLES Final R esult Performing Organization Address [facility] de Phone Number [facility] [address] [place] [address] * ECG 12 lead (05/19/2025 1:43 PM CDT) 05/19/2025 1:43 PM CDT Narrative [facility] - 05/20/2025 9:59 AM CDT Vent Rate: 98 bpm RR Interval: 608 msec PA Interval: 208 msec QRS Duration: 76 msec QT Interval: 344 msec QTC Interval: 400 msec P-R-T [place]: 16 - -4 - 18 degrees IMPRESSION: SINUS RHYTHM LOW QRS VOLTAGE IN PRECORDIAL LEADS PROBABLE INFERIOR MYOCARDIAL INFARCTION , PROBABLY OLD ABNORMAL ECG Electronically Signed By: Fei Wright MD, [facility] Monica Penaloza E LEARNING DEVELOPER ECG ORDERABLES Final Result Performing Organization Address [facility] de Phone Number [facility] * MRI Outside Reference (04/01/2025 1:27 PM CDT) Narrative RAD_PACS_OUTSIDE_FILM_[facility] - 04/01/2025 1:27 PM CDT This order has been auto-finalized and does not contain a result. Coty Wade NP IMG MRI PROCEDURES Final R esult Performing Organization Address [facility] Co de Phone Number RAD_PACS_OUTSIDE_FILM_[facility] * XR Knee Left 4+ View (03/31/2025 1:46 PM CDT) Anatomical Region Laterality Modality Lower Extremities, Knee Left Computed Radiography 04/01/2025 7:37 AM CDT Addenda Addendum by Martinez Lloyd MD on 04/01/2025 7:57 AM CDT Addendum: An addendum is being issued to correct impression of the the report. Corrections are made in ALL CAPS. The report should read as follows: IMPRESSION: Left Knee: 1. 3 compartment degenerative joint disease is noted which is most significant in the medial joint space compartment where there is marked disease with a near fbtr-ag-[id number] appearance. A SMALL KNEE JOINT EFFUSION IS PRESENT. Contralateral knee: 2. Limited evaluation reveals spur formation with preservation of the joint spaces. Electronically signed by: Martinez Lloyd M.D. Impressions 04/01/2025 7:37 AM CDT Left Knee: 1. 3 compartment degenerative joint disease is noted which is most significant in the medial joint space compartment where there is marked disease with a near [id number]-lb-[id number] appearance. Contralateral knee: 2. Limited evaluation reveals spur formation with preservation of the joint spaces. COMMENT: Please see above for additional findings. Electronically signed by: Martinez Lloyd M.D. Narrative 04/01/2025 7:37 AM CDT XR KNEE LEFT 4 OR MORE VIEWS CLINICAL HISTORY: Left knee pain COMPARISON: None available. FINDINGS: The bone density and architecture appear to be within normal limits. There is no evidence of acute fracture or malalignment. Medial Compartment: There is noted marked to severe narrowing of the medial joint space compartment. Sclerosis and spur formation are present. Lateral Compartment: There is noted compensatory expansion of the lateral joint space compartment. Sclerosis and minimal spur formation are noted. Patellofemoral Compartment: The patellofemoral joint space is maintained. Spur formation is noted. A prominent spur is noted extending cephalad from the region of the distal insertion of the infrapopliteal ligament. Joint effusion: A small joint effusion is present. Soft Tissues: Atherosclerotic vascular calcification is present. Contralateral Knee: Limited evaluation reveals spur formation with preservation of the joint spaces. Procedure Note Martinez Lloyd MD - 04/01/2025 XR KNEE LEFT 4 OR MORE VIEWS CLINICAL HISTORY: Left knee pain COMPARISON: None available. FINDINGS: The bone density and architecture appear to be within normal limits. There is no evidence of acute fracture or malalignment. Medial Compartment: There is noted marked to severe narrowing of the medial joint space compartment. Sclerosis and spur formation are present. Lateral Compartment: There is noted compensatory expansion of the lateral joint space compartment. Sclerosis and minimal spur formation are noted. Patellofemoral Compartment: The patellofemoral joint space is maintained. Spur formation is noted. A prominent spur is noted extending cephalad from the region of the distal insertion of the infrapopliteal ligament. Joint effusion: A small joint effusion is present. Soft Tissues: Atherosclerotic vascular calcification is present. Contralateral Knee: Limited evaluation reveals spur formation with preservation of the joint spaces. IMPRESSION: Left Knee: 1. 3 compartment degenerative joint disease is noted which is most significant in the medial joint space compartment where there is marked disease with a near bpbk-vz-fprc appearance. Contralateral knee: 2. Limited evaluation reveals spur formation with preservation of the joint spaces. COMMENT: Please see above for additional findings. Electronically signed by: Martinez Lloyd M.D. Coty Wade NP IMG XR PROCEDURES Edited R esult - Final * (ABNORMAL) Microalbumin / creatinine ratio, urine, random (09/21/2018 8:04 AM CENSUS CLERK) Creatinine ur 116.1 Not Estab. mg/dL [facility] - 01 Microalbumin, ur 662.8 Not Estab. ug/mL [facility] - 01 Comment: Results confirmed on dilution. Microalbumin/cr eat ratio 570.9(H) 0.0 - 30.0 mg/g creat [facility] - 01 Comment: Normal: 0.0 - 30.0 Albuminuria: 31.0 - 300.0 Clinical albuminuria: >300.0 Urine 09/21/2018 8:04 AM CENSUS CLERK 09/21/2018 Narrative [facility] - 09/23/2018 2:08 AM CENSUS CLERK Performed at: [address] [place] [id number] Pastry Baker: Nolberto Gaitan PhD, Phone: [phone] us John Rascon MD LAB URINE ORDERABLES Final Res ult [facility] - 01 * Lipid panel (09/21/2018 8:04 AM CENSUS CLERK) Cholesterol 157 100 - 199 mg/dL [facility] - 01 Triglycerides 109 0 - 149 mg/dL [facility] - 01 HDL Cholesterol 46 >39 mg/dL [facility] - 01 VLDL 22 5 - 40 mg/dL [facility] - 01 LDL, calculated 89 0 - 99 mg/dL [facility] - 01 Blood specimen (specimen) 09/21/2018 8:04 AM CENSUS CLERK 09/21/2018 Narrative [facility] - 09/23/2018 2:08 AM CENSUS CLERK Performed at: - [place] [address] Pastry Baker: Nolberto Gaitan PhD, Phone: [phone] us John Rascon MD LAB BLOOD ORDERABLES Final Res ult [facility] - 01 from Last 3 Months or Most Recently Relevant to Health Maintenance Insurance MEDICARE MEDICARE MEDICARE Care Teams Dye Room Helper Relationship Specialty Start Date End Date Ginette Bowling NP [facility] [address] [place] [id number] PCP - General Cardiovascular Disease 05/19/25
--- OUTSIDE RECORDS SUMMARY | 2025-06-14 09:35 | XMS_ITS | Clinical Summary ---
Author Organization [facility] Address [address] [place] [address] Care Team Providers Care Safety Counselor Name Role Phone Kobi Chacon DO Primary Care Provider [phone] Source Comments [facility],non-owned Affiliates and Associated Physician Practices is amultiple site organization consisting of ambulatory clinics and hospital sitesin [place], [place], [place] and [place]. This disclosure is being madepursuant to the Care Everywhere program and may not contain all information available regarding this patient. Last updated 18.[facility] Allergies No known active allergies Medications * Be aware that medications may not be up to date on this document. Alwaysverify current medications with the patient. amLODIPine (Norvasc) 10 MG tabletIndicati ons:Hypertensi on Take 1 (one) tablet by mouth once daily Reasons: High Blood Pressure Disorder Active insulin glargine (Lantus/Semgle e) 100 units/mL penIndications :Type 2 Diabetes Mellitus Inject 40 (forty) Units subcutaneously at bedtime Reasons: Type 2 Diabetes Active insulin regular human (HumuLIN R; NovoLIN R) 100 UNIT/ML injectionIndic ations:Hypergl ycemia,Type 2 Diabetes Mellitus Inject subcutaneously as needed Sliding scale Reasons: High Blood Sugar, Type 2 Diabetes Active aspirin (Aspirin) 81 MG chew tablet Take 1 (one) tablet by mouth once daily 3 Active atorvastatin (Lipitor) 80 MG tablet Take 1 (one) tablet by mouth at bedtime 3 Active carvedilol (Coreg) 25 MG tablet Take 1 (one) tablet by mouth 2 times daily with morning and evening meal 3 Active hydroCHLOROthi azide (Hydrodiuril) 50 MG tablet Take 1 (one) tablet by mouth once daily 3 Active losartan (Cozaar) 100 MG tabletIndicati ons:Hypertensi on Take 1 (one) tablet by mouth at bedtime Reasons: High Blood Pressure Disorder 3 Active metFORMIN (Glucophage) 1000 MG tablet Take 1 (one) tablet by mouth 2 times daily Active netarsudil (Rhopressa) 0.02 % ophthalmic solution Instill 1 (one) drop into left eye every evening 2.5 mL 3 3 Active brimonidine (Alphagan P) 0.15 % ophthalmic solution Instill 1 (one) drop into left eye 3 times daily 10 mL 4 3 Active dorzolamide-ti molol (Cosopt) 22.3-6.8 MG/ML ophthalmic solution Instill 1 (one) drop into left eye 2 times daily 10 mL 4 3 Active latanoprost (Xalatan) 0.005 % ophthalmic solution Instill 1 (one) drop into both eyes at bedtime 2.5 mL 4 3 Active Active Problems Problem Noted Date Diagnosed Date COVID-19 10/25/2022 Chronic angle-closure glauco ma of eye, right, moderate stage 10/25/2022 Chronic angle-closure glaucoma of eye, left, sev ere stage 10/25/2022 Overview (10/25/2022): Patient presents to our department after finding of uncontrolled glaucoma during recent evaluation for stroke. 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 Vitamin D deficiency 09/10/2018 Immunizations Immunization Administration Dates Next Due INFLUENZA VACCINE, QUADR. 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 Gender Identity Not on file Sexual Orientation Not on file Last Filed Vital Signs Vital Sign Reading Time Taken Comments Blood Pressure 154/95 11/04/2022 10:01 AM CDT Pulse 98 11/04/2022 10:01 AM CDT Temperature 36.7 C (98.1 F) 10/12/2022 3:43 PM CASE PACKER AND SEALER Respiratory Rate 12 11/04/2022 10:01 AM CDT Oxygen Saturation 97% 10/12/2022 3:43 PM CASE PACKER AND SEALER Inhaled Oxygen Concentration - - Weight 130.2 kg (287 lb) 11/04/2022 10:01 AM CDT Height 182.9 cm (6') 10/07/2022 8:08 AM CASE PACKER AND SEALER Body Mass Index 38.92 10/07/2022 8:08 AM CASE PACKER AND SEALER Plan of Treatment Health Maintenance Due Date [...] CREATININE 10/13/20232022, 10/11/2022, 10/10/2022, Additional history exists DEPRESSION SCREENING 08/11/2024 11/04/2022, 10/07/19 DIABETES - URINE PROTEIN SCREENING 08/11/2024 DIABETES RETINOPATHY SCREENING 10/25/2024 10/25/2022, 10/11/2022, 10/10/2022 COVID-19 VACCINE ( - season) 2025 INFLUENZA VACCINE (#1) 2025 07/25/2020 HIB VACCINE Aged Out No longer eligi [...] PANEL (CALCIUM TOTAL) Routine 10/12/2022 3:00 AM CASE PACKER AND SEALER HEMOGLOBIN A1C Add on 10/07/2022 8:22 AM CASE PACKER AND SEALER from Last 3 Months or Most Recently Relevant to Health Maintenance Results * (ABNORMAL) BASIC METABOLIC PANEL (CALCIUM TOTAL) (10/12/2022 3:00 AM CASE PACKER AND SEALER) BUN 17 7 - 26 mg/dL 10/12/2022 3:59 AM [facility] Creatinine 1.13 0.71 - 1.16 mg/dL 10/12/2022 3:59 AM [facility] Sodium 143 136 - 145 mmol/L 10/12/2022 3:59 AM [facility] Potassium 3.9 3.5 - 4.5 mmol/L 10/12/2022 3:59 AM [facility] Chloride 106 98 - 107 mmol/L 10/12/2022 3:59 AM [facility] CO2 16(L) 22 - 29 mmol/L 10/12/2022 3:59 AM [facility] Glucose 224(H) 70 - 115 mg/dL 10/12/2022 3:59 AM [facility] Calcium 8.9 8.4 - 10.2 mg/dL 10/12/2022 3:59 AM [facility] Anion Gap 25(H) 8 - 18 10/12/2022 3:59 AM [facility] BUN/Creatinine Ratio 15 7 - 23 10/12/2022 3:59 AM [facility] Osmolality Calculated 305(H) 270 - 300 mOsm/kg 10/12/2022 3:59 AM [facility] eGFR by CKD-EPI 76(L) >=90 mL/min/1.7 3 m2 10/12/2022 3:59 AM CASE PACKER AND SEALER [facility] Blood BLOOD SPECIMEN / Unknown Lab Venipuncture / Unknown 10/12/2022 3:00 AM CASE PACKER AND SEALER 10/12/2022 3:19 AM CASE PACKER AND SEALER Sharifa Talley MD LAB - CHEMISTRY ORDERABLES Fin al Result Performing Organization Address [facility] Co de Phone Number [address] [address], [place] [phone] * (ABNORMAL) HEMOGLOBIN A1C (10/07/2022 8:22 AM CASE PACKER AND SEALER) Hemoglobin A1c 7.9(H) <=5.6 % 10/07/2022 12:35 PM [facility] Estimated Average Glucose 180 mg/dL 10/07/2022 12:35 PM [facility] Comment: HbA1c Interpretation: Normal : < 5.7% Pre-diabetes: 5.7-6.4% Diabetes: Equal to or greater than 6.5% Test results diagnostic of diabetes should be repeated for confirmation. Treatment target values recommended by ADA and other clinical organizations should be used to evaluate metabolic control in patients. Reference: [place] [employer] Association, Standards of Care in Diabetes -2020 In patients 70 years and older consider HbA1c target range of 7.0-7.5% (Reference: Johnny Mendoza et al. JAMDA. 2012) The Sebia assay for the measurement of HbA1c is a National Glycohemoglobin Standardization Program (NGSP) certified method. Blood BLOOD SPECIMEN / Unknown Lab Venipuncture / Unknown 10/07/2022 8:22 AM CASE PACKER AND SEALER 10/07/2022 10:37 AM CASE PACKER AND SEALER us Sharifa Talley MD LAB - CHEMISTRY ORDERABLES Fin al Result Performing Organization Address [facility]/ZIP Co de Phone Number [facility] [address] [place] [address], [place] [phone] from Last 3 Months or Most Recently Relevant to Health Maintenance Insurance Advance Directives * Full Code (Latest Code Status on File) Date Activated Date Inactivated Comments 10/07/2022 8:30 AM 10/12/2022 6:52 PM Care Teams Safety Counselor Relationship Specialty Start Date End Date Kobi Chacon DO [address] [place] [phone] PCP - General Family Medicine 10/07/22
--- OUTSIDE RECORDS SUMMARY | 2025-06-14 09:35 | XMS_ITS | Clinical Summary ---
Author Organization [facility] Address [address] [place] [address] Care Team Providers Care Tool Adjuster Name Role Phone Pedro Stephen MD Primary Care Provider [phone] Allergies No known active allergies Medications TRULICITY [...] mouth daily. 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 Gender Identity Not on file Sexual Orientation Not on file Last Filed Vital Signs Vital Sign Reading Time Taken Comments Blood Pressure 160/94 07/25/2020 9:05 AM ORNAMENT SETTER Pulse 80 07/25/2020 9:05 AM ORNAMENT SETTER Temperature 36.6 C (97.8 F) 07/25/2020 9:05 AM ORNAMENT SETTER Respiratory Rate 18 07/25/2020 9:05 AM ORNAMENT SETTER Oxygen Saturation 95% 07/25/2020 9:05 AM ORNAMENT SETTER Inhaled Oxygen Concentration - - Weight 115.4 kg (254 lb 6.6 oz) 07/25/2020 5:00 AM ORNAMENT SETTER Height 180.3 cm (5' 11) 07/21/2020 8:01 AM ORNAMENT SETTER Body Mass Index 35.48 07/21/2020 8:01 AM ORNAMENT SETTER Plan of Treatment Health Maintenance Due Date Last Done Comments Colorectal Cancer Screening Colonoscopy (10 Years) 1966 Kidney Health Evaluation 1966 Hemoglobin A1C 1966 Lipid Panel 1966 Annual Physical 1969 Diabetes: Retinopathy Eye Exam 02/03/1984 Hepatitis C 02/03/1984 DTaP, Tdap and Td Vaccines ( 1 - Tdap) 1985 Pneumococcal Vaccine: 50+ Ye ars (1 of 2 - PCV) 1985 Zoster Vaccines (1 of 2) 02/03/2016 COVID-19 Vaccine (1 - 2024-2 6 season) 2025 Influenza Adult (#1) 2025 07/25/2020 Hepatitis A Vaccines Aged Out No long er eligible based on patient's age to complete this topic Meningococcal B Vaccine Aged Out No l onger eligible based on patient's age to complete this topic Meningococcal Vaccine Aged Out No derek anais eligible based on patient's age to complete this topic RSV Immunizations Under 20 Months Aged Out No longer eligible based on patient's age to complete this topic Insurance [facility] Advance Directives * Full Code (Latest Code Status on File) Date Activated Date Inactivated Comments 07/23/2020 10:49 AM 07/25/2020 2:37 PM * Full Code Date Activated Date Inactivated Comments 07/21/2020 9:38 AM 07/23/2020 10:49 AM Care Teams Tool Adjuster Relationship Specialty Start Date End Date Pedro Stephen MD [address] [place] [address] PCP - General FAMILY PRACTICE 07/21/20
--- OUTSIDE RECORDS SUMMARY | 2025-06-14 09:35 | XMS_ITS | Clinical Summary ---
Author Organization [facility] Address [address] [address] Care Team Providers Care Therapist Name Role Phone Carol Smith MD Primary Care Provider [phone] Social History Tobacco Use Types Packs/Day Years [...] Diabetes: Visual Foot Exam 01/04/2021 Pneumococcal Vaccine: 50+ Years (2 of 2 - PCV) 022 10/25/2020 Influenza Vaccine (#1) 2025 07/25/2020 Pneumococcal Vaccine: Peds ( 0 to 5 Years) and At-Risk Patients (6 to 49 Years) Discontinued 10/25/2020 Care Teams Therapist Relationship Specialty Start Date End Date Carol Smith MD [facility] [place] [address] PCP - General 12/19/20
--- OUTSIDE RECORDS SUMMARY | 2025-06-14 09:35 | XMS_ITS | Encounter Summary ---
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
--- OUTSIDE RECORDS SUMMARY | 2025-06-14 09:35 | XMS_ITS | Encounter Summary ---
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
--- NOTE | 2025-06-14 11:12 | IVDEFINITY ---
Prior to administration of IV Definity the patient was educated on the risks and benefits of the imaging enhancing agent including potential adverse side effects. The patient verbalized understanding. Allergies were verified. No exclusion criteria were identified and at least one of the following inclusion criteria were met: 1) physician request, 2) patient technically difficult to image (per the [place] Society of Echocardiography guidelines of two or more segments not discernable within the apical view), or 3) questionable left ventricular function. ?
== END 2025-06-14 08:49 | disposition home or self-care (01) ==
PROVIDERS: PCP Clinical Nurse Specialist; Visit Provider Clinical Nurse Specialist
DX: R94.31 Abnormal electrocardiogram [ECG] [EKG] (principal); Z01.818 Encounter for other preprocedural examination
CPT/HCPCS: 78452; 93017; A9502; C8929; J2785; Q9957